=== PATIENT | male | born 1975 ===

== ENCOUNTER → 2020-09-13 09:40 | Outpatient (BNVA) | payer OTHER, SELFPAY | PROVIDERS: PCP Family Medicine; Referring Provider Family Medicine; Visit Provider Internal Medicine | DX: E11.65 Type 2 diabetes mellitus with hyperglycemia (principal); I10 Essential (primary) hypertension; E78.5 Hyperlipidemia, unspecified; E55.9 Vitamin D deficiency, unspecified; Z79.899 Other long term (current) drug therapy; Z79.82 Long term (current) use of aspirin; Z79.4 Long term (current) use of insulin; Z71.89 Other specified counseling | CPT/HCPCS: Q3014 ==

== ENCOUNTER 2020-09-19 20:25 | Emergency (ER) | payer OTHER, SELFPAY ==
--- NOTE | 2020-09-19 | US_ITS ---
EXAMINATION: US VENOUS WITH DOPPLER LOWER EXTREMITY, LEFT CLINICAL INFORMATION: Left lower extremity deep vein thrombosis. COMPARISON: None TECHNIQUE: Ultrasound of the deep veins is performed from the hip to the calf with compression sonography and color and pulse Doppler assessment. Spectral analysis with color-flow imaging is performed. FINDINGS: There is thrombus present in the posterior tibial and peroneal veins extending up into the popliteal vein and superficial femoral vein but not into the common femoral vein which is free of thrombus with normal respiratory variation of flow. The thrombus ends just after the inflow of the uninvolved great saphenous vein. The contralateral right common femoral vein appears normal. US/US venous duplex LE LT IMPRESSION: Acute DVT with extensive thrombus extending from tibial veins through the popliteal vein up the femoral vein to just below the saphenofemoral junction. This critical result was discussed with Dr. Navarro at 8:15 PM on the day of the exam and it was ascertained that the content and urgency of the report was understood at the time of direct communication. The patient was instructed to go directly from the ultrasound department at [facility] to the emergency room.
[2020-09-19 20:38] VITALS: BP 145/73; PULSE 79; RESP 18; TEMP 36.6; O2SAT 100; BMI 35.9
--- NOTE | 2020-09-19 20:47 | ED.GENADULT ---
HPI - General Adult General Chief complaint: General Medical Stated complaint: pt comfirmed dvt Time Seen by Provider: 09/19/20 20:43 Source: patient Mode of arrival: wheelchair Limitations: no limitations History of Present Illness HPI narrative: sent by US for acute DVT LLE - issues in leg x 3 weeks - sent by US tech due to positive study, denies CP/SOB, no known precipitating factors, no hx of GIB or bleeding, no fam hx, no prior VTE events complaint: LLE DVT Onset (ago): week(s) (2) Location: lower extremity Radiation: non-radiation Severity: mild Quality: aching Pain Consistency: constant Relieving factors: none Exacerbating factors: none Associated symptoms: denies other symptoms Treatments prior to arrival: none Related Data Home Medications Medication Instructions Recorded Confirmed acetaminophen 650 mg 1,300 mg PO Q8H PRN 09/13/20 09/19/20 tablet,extended release aspirin 81 mg tablet,delayed 81 mg PO DAILY 09/13/20 09/19/20 release atorvastatin 40 mg tablet 40 mg PO DAILY 09/13/20 09/19/20 cholecalciferol (vitamin D3) 50 50 mcg PO DAILY 09/13/20 09/19/20 mcg (2,000 unit) capsule dorzolamide 22.3 mg-timolol 6.8 1 drp OPHTHALMIC (EYE) BID 09/13/20 09/19/20 mg/mL eye drops insulin aspart U-100 100 unit/mL 8 unit SUBCUT TIDAC 09/13/20 09/19/20 (3 mL) subcutaneous pen insulin glargine 100 unit/mL (3 40 unit SUBCUT BEDTIME 09/13/20 09/19/20 mL) subcutaneous pen latanoprost 0.005 % eye drops 1 drp OPHTHALMIC (EYE) BEDTIME 09/13/20 09/19/20 loratadine 10 mg tablet 10 mg PO DAILY 09/13/20 09/19/20 nabumetone 750 mg tablet 750 mg PO BID 09/13/20 09/19/20 omeprazole 40 mg capsule,delayed 40 mg PO QAM 09/13/20 09/19/20 release primidone 50 tab PO BID 09/19/20 09/19/20 Previous Rx's Medication Instructions Recorded apixaban [Eliquis] 10 mg PO BID #90 tab 09/19/20 Allergies Allergy/AdvReac Type Severity Reaction Status Date / Time oxycodone Allergy Unknown Verified 06/13/20 00:00 Review of Systems Review of Systems: Constitutional : No Fever, No Chills ENT/Mouth : No Ear Pain, No Hoarseness, No sore throat Eyes: No Eye Pain, No Swelling, No Redness, No Foreign Body Cardiovascular : No Chest Pain, No SOB Respiratory : No Cough, No Dyspnea Gastrointestinal : No Nausea, No Vomiting, No Diarrhea, No abdominal Pain Genitourinary : No Dysuria, No Hematuria Musculoskeletal : positive joint pain, No Myalgias, No Joint Swelling Skin : No Skin lacerations, No rash Neuro : No Weakness, No Numbness, No Loss of Consciousness, No Dizziness, No Headache Psych : No Anxiety/Panic, No Depression Heme/Lymph: no easy bruising, no Lymphadenopathy Endocrine : No Polyuria, No Polydipsia All other systems reviewed and are negative PMFSH Past Medical History Attestation statement: The following information was validated with the patient. Medical History HLD (hyperlipidemia) HTN (hypertension) T2DM (type 2 diabetes mellitus) Vitamin D deficiency Surgical History No pertinent past surgical history Family History Family History Father No problems noted. Mother No problems noted. Social History Social History Alcohol intake: never Smoking Status: Former smoker Smoked in Last 30 Days: No Use of substances other than those prescribed or required for medical reasons: No Physical Exam Vital Signs: Vital Signs: Last Vital Signs Temp 98.9 F 09/19/20 21:11 Pulse 76 09/19/20 21:11 Resp 18 09/19/20 21:11 BP 125/98 H 09/19/20 21:11 Pulse Ox 98 09/19/20 21:11 Body Mass Index 35.9 Appearance: Alert. Oriented X3. No acute distress. Eyes: Pupils equal, round and reactive to light. ENT: Pharynx normal. Neck: Normal inspection. Neck supple. CVS: Normal heart rate and rhythm. Pulses normal. Respiratory: No respiratory distress. Breath sounds normal. Abdomen: Soft and nontender. Skin: Skin warm and dry. Normal skin color. Normal skin turgor. Extremities: pos non pitting left lower extremity edema. mild calf ttp normal skin tone, 2+ pulse DP/PT, sensation intact Neuro: Oriented X 3. No motor deficit. No sensory deficit. Medical Decision Making MDM Narrative Medical decision making narrative: 45 yo male with LLE pain and swelling x 2 weeks no precipitating events dx with US for DVT - wants to start eliquis, NV intact, will need labs, has no CP/SOB, hypoxia or tachycardia clinically no signs of PE Lab Data Result diagrams: 09/19/20 21:33 09/19/20 21:33 Labs: Lab Results 09/19/20 09/19/20 09/19/20 Range/Units 21:33 21:33 21:33 WBC 8.8 (4.8-10.8) X10*3/uL RBC 4.58 L (4.60-5.80) X10*6/uL Hgb 12.9 L (14.0-18.0) g/dl Hct 40.3 L (42-52) % MCV 88.0 (80-98) fL MCH 28.2 (27.0-33.0) pg MCHC 32.0 (31.0-36.0) g/dl RDW 12.9 (11.0-16.0) % Plt Count 202 (160-400) X10*3/uL MPV 9.6 (9.4-12.4) fL Absolute Nucleated RBC 0.000 (0.0-0.012) X10*3/uL Nucleated RBC % (auto) 0.0 (0.0-0.2) /100WBC PT 11.5 (10.8-13.0) SEC INR 1.0 (0.9-1.1) APTT 27.5 (24.1-38.0) SEC Sodium 139 (135-145) mmol/L Potassium 4.8 (3.3-5.1) mmol/l Chloride 104 (96-108) mmol/L Carbon Dioxide 29 (22-29) mmol/L Anion Gap 11 L (12-20) BUN 17 H (9-16) mg/dL Creatinine 1.16 (0.5-1.4) mg/dL Estim Creat Clear Calc 113.8 Estimated GFR > 60 Random Glucose 176 H (60-115) mg/dL Calcium 9.1 (8.4-10.2) mg/dL Discharge Plan Discharge Clinical Impression: DVT (deep venous thrombosis) Qualifiers: DVT location: lower extremity Affected thrombotic vein of extremity: unspecified vein of extremity Chronicity: acute Laterality: left Qualified Code(s): I82.402 - Acute embolism and thrombosis of unspecified deep veins of left lower extremity Patient Disposition: Home, Self-Care Instructions: Deep Vein Thrombosis (ED), Safe Use of Anticoagulants (ED), Blood Thinners (ED) Additional Instructions: return to ED for any worsening symptoms or concerns Prescriptions: New Eliquis 5 mg tablet 10 mg PO BID Qty: 90 RF: 0 No Action primidone 50 mg tablet 50 tab PO BID RF: 0 acetaminophen 650 mg tablet extended release 1,300 mg PO Q8H PRN (Reason: Pain) RF: 0 dorzolamide-timolol [Cosopt] 22.3-6.8 mg/mL drops 1 drp ophthalmic (eye) BID RF: 0 latanoprost [Xalatan] 0.005 % drops 1 drp ophthalmic (eye) BEDTIME RF: 0 loratadine [Claritin] 10 mg tablet 10 mg PO DAILY RF: 0 nabumetone 750 mg tablet 750 mg PO BID RF: 0 Lantus Solostar U-100 Insulin 100 unit/mL (3 mL) insulin pen 40 unit subcut BEDTIME RF: 0 insulin aspart U-100 100 unit/mL (3 mL) insulin pen 8 unit subcut TIDAC RF: 0 aspirin 81 mg tablet,delayed release (DR/EC) 81 mg PO DAILY RF: 0 omeprazole 40 mg capsule,delayed release(DR/EC) 40 mg PO QAM RF: 0 atorvastatin 40 mg tablet 40 mg PO DAILY RF: 0 cholecalciferol (vitamin D3) 50 mcg (2,000 unit) capsule 50 mcg PO DAILY RF: 0 Referrals: Physician,Unknown [Primary Care Provider] - 5 days
[2020-09-19 21:11] VITALS: BP 125/98; PULSE 76; RESP 18; TEMP 37.2; O2SAT 98
[2020-09-19 21:38] LABS: Hematocrit 40.3 % (42-52); Hemoglobin 12.9 g/dl (14.0-18.0); Mean Corpuscular Hemoglobin 28.2 pg (27.0-33.0); Mean Platelet Volume 9.6 fL (9.4-12.4); Platelet Count 202 X10*3/uL (160-400); Red Blood Count 4.58 X10*6/uL (4.60-5.80); Red Cell Distribution Width 12.9 % (11.0-16.0); White Blood Count 8.8 X10*3/uL (4.8-10.8)
[2020-09-19 21:44] LABS: Prothrombin Time 11.5 SEC (10.8-13.0)
[2020-09-19 21:47] LABS: Partial Thromboplastin Time 27.5 SEC (24.1-38.0)
[2020-09-19 21:56] LABS: Anion Gap 11 (12-20); Blood Urea Nitrogen 17 mg/dL (9-16); Calcium 9.1 mg/dL (8.4-10.2); Carbon Dioxide 29 mmol/L (22-29); Chloride 104 mmol/L (96-108); Creatinine Clr Calc Pharmacy 113.8; Estimated Glomerular Filt Rate > 60; Glucose Random 176 mg/dL (60-115); Potassium 4.8 mmol/l (3.3-5.1); Sodium 139 mmol/L (135-145)
[2020-09-19 22:00] VITALS: BP 142/79; PULSE 74; RESP 15; TEMP 36.6; O2SAT 98
[2020-09-19] MEDS: Apixaban 5 MG TABLET 10 MG PO (22:30)
== END 2020-09-19 22:48 | disposition home or self-care (01) ==
LOC: HO.ED 20:25
PROVIDERS: Emergency Provider Emergency Medicine
DX: I82.402 Acute embolism and thrombosis of unspecified deep veins of left lower extremity (principal); I10 Essential (primary) hypertension; E11.9 Type 2 diabetes mellitus without complications; E55.9 Vitamin D deficiency, unspecified; Z79.899 Other long term (current) drug therapy; Z87.891 Personal history of nicotine dependence; Z79.4 Long term (current) use of insulin
CPT/HCPCS: 36415; 80048; 85027; 85610; 85730; 93971; 99284

== ENCOUNTER 2021-01-02 14:28 | Outpatient (REF) | payer OTHER, SELFPAY ==
[2021-01-02 16:51] LABS: Alanine Aminotransferase 18 U/L (0-40); Albumin Level 4.2 g/dL (3.5-5.0); Alkaline Phosphatase 109 U/L (39-117); Anion Gap 11 (12-20); Aspartate Amino Transferase 12 U/L (5-37); Bilirubin Total 0.5 mg/dL (0.0-1.0); Blood Urea Nitrogen 21 mg/dL (9-16); Calcium 8.9 mg/dL (8.4-10.2); Carbon Dioxide 27 mmol/L (22-29); Chloride 102 mmol/L (96-108); Cholesterol 125 mg/dL; Estimated Glomerular Filt Rate 58; Glucose Random 206 mg/dL (60-115); HDL Cholesterol 36 mg/dL; LDL Cholesterol Calculated 44 mg/dl; Potassium 4.3 mmol/L (3.3-5.1); Sodium 136 mmol/L (135-145); Total Protein 7.3 g/dL (6.5-8.0); Triglycerides 229 mg/dL
[2021-01-02 17:13] LABS: Vitamin D 25-OH Total 39.5 ng/mL (>30)
[2021-01-02 17:16] LABS: Creatinine Urine 115.21 mg/dL
[2021-01-03 04:27] LABS: LDL Cholesterol Direct 73 mg/dL (<100)
== END 2021-01-02 14:29 | disposition home or self-care (01) ==
LOC: HO.LAB 14:28
PROVIDERS: PCP Internal Medicine; Visit Provider Internal Medicine
DX: E11.65 Type 2 diabetes mellitus with hyperglycemia (principal); E55.9 Vitamin D deficiency, unspecified; Z79.4 Long term (current) use of insulin
CPT/HCPCS: 36415; 80053; 80061; 82043; 82306; 82947; 83721; 99212

== ENCOUNTER → 2021-05-15 09:13 | Outpatient (REF) | payer OTHER, SELFPAY ==
--- NOTE | ~2021-05-15 | NM_ITS ---
Myocardial perfusion study Indication: Precordial chest pain to evaluate for myocardial ischemia Technique: The patient was brought in for a Lexiscan perfusion study on 05/15/2021. Patient performed low-level exercise and was injected 0.4 mg of Lexiscan intravenously. Within a minute of injection, 40 mCi of sestamibi was given intravenously. Images were obtained using the SPECT gamma camera interlaced with the gating device. Images were obtained in supine position. Resting perfusion study was performed on 05/16/2021. Patient was administered 40 mCi of sestamibi intravenously at rest. Images were then obtained in supine position. Images obtained with and without CT attenuation. Total DLP 187 mGy-cm. Images were processed with the software and compared side to side in short axis, horizontal long axis and vertical long axis views. Findings: The stress perfusion study showed nonattenuated images show normal uptake of radiotracer in all segments of LV myocardium. Attenuation corrected images show mildly reduced uptake in the distal septum and apex of the. The gated study shows normal LV systolic function with calculated LVEF of 67%. LV cavity is normal size. The gated study shows normal systolic wall thickening and contraction of segments. Resting study shows no change in perfusion pattern compared to stress perfusion study. Gating at rest reveals normal systolic wall motion with ejection fraction at 68%. The findings are consistent with normal myocardial perfusion. NM/NM lexx perf SPECT rest & str Impression: 1. Myocardial perfusion imaging study shows normal myocardial perfusion 2. Gated LVEF is 67% 3. Transient ischemic dilatation not present EKG is nondiagnostic for ischemia
--- NOTE | 2021-05-15 09:00 | CA_ITS ---
Acquisition Time: 2021-05-15 09:54:32 Total Exercise Time: 00:06:48 Test Indications: Chest Pain Medications: ELIQUIS ASA ATORVASTATIN LORATADINE ENALAPRIL INSULIN OMEPRAZOLE OZEMPIC Protocol: MATI Max HR: 160 BPM 91% of Pred: 174 BPM Max BP: 178/058 mmHG Max Work Load: 8.2 METS Exercise stress test with exercise 6 min 48 sec of Mati protocol, with moderate shortness of breath, no chest discomfort, without arrythmia, with normotensive response to exercise, with ongoing T wave inversion lead III during exercise and recovery, without EKG changes meeting criteria for ischemia. In recovery his shortness of breath quickly resolved. Nuclear images pending. Test reviewed with Dr Thomas. Referred By: Derick Peña Overread By: ASTRID ROUSSEAU
== END ==
LOC: HO.CARD 09:13
PROVIDERS: Visit Provider Internal Medicine
DX: R07.2 Precordial pain (principal)
CPT/HCPCS: 78452; 93017; A9500

== ENCOUNTER 2021-09-27 08:46 | Outpatient (REF) | payer OTHER, SELFPAY ==
[2021-09-27 10:11] LABS: Estimated Average Glucose 197 mg/dL; Hemoglobin A1c % 8.5 %
[2021-09-27 10:43] LABS: Alanine Aminotransferase 34 U/L (0-40); Albumin Level 4.1 g/dL (3.5-5.0); Alkaline Phosphatase 131 U/L (39-117); Anion Gap 14 (12-20); Aspartate Amino Transferase 17 U/L (5-37); Bilirubin Total 0.4 mg/dL (0.0-1.0); Blood Urea Nitrogen 22 mg/dL (9-16); Calcium 9.5 mg/dL (8.4-10.2); Carbon Dioxide 24 mmol/L (22-29); Chloride 104 mmol/L (96-108); Estimated Glomerular Filt Rate 58; Glucose Random 210 mg/dL (60-115); Sodium 138 mmol/L (135-145); Total Protein 7.5 g/dL (6.5-8.0)
[2021-09-27 11:26] LABS: Creatinine Urine 102.96 mg/dL
== END 2021-09-27 08:47 | disposition home or self-care (01) ==
LOC: HO.LAB 08:46
PROVIDERS: PCP Internal Medicine; Visit Provider Internal Medicine
DX: E11.65 Type 2 diabetes mellitus with hyperglycemia (principal); Z79.4 Long term (current) use of insulin
CPT/HCPCS: 36415; 80053; 83036

== ENCOUNTER → 2021-09-30 12:19 | Outpatient (BNVA) | payer OTHER, SELFPAY | PROVIDERS: PCP Internal Medicine; Visit Provider Internal Medicine | DX: E11.65 Type 2 diabetes mellitus with hyperglycemia (principal); E55.9 Vitamin D deficiency, unspecified; E78.5 Hyperlipidemia, unspecified; I10 Essential (primary) hypertension; Z79.4 Long term (current) use of insulin | CPT/HCPCS: 82947; 99212 ==

== ENCOUNTER → 2021-10-29 14:02 | Outpatient (BNVA) | payer OTHER, SELFPAY | PROVIDERS: PCP Internal Medicine; Visit Provider Registered Nurse Diabetes Educator | DX: E11.65 Type 2 diabetes mellitus with hyperglycemia (principal); Z79.4 Long term (current) use of insulin | CPT/HCPCS: 99211 ==

== ENCOUNTER 2021-12-26 09:01 | Outpatient (REF) | payer OTHER, SELFPAY ==
--- NOTE | 2021-12-26 09:04 | EMG_ITS ---
Right median and ulnar motor and sensory studies were performed. Right radial sensory study was performed and paraspinal muscles were tested with a needle. IMPRESSION: 1. [id number] right median neuropathy across carpal tunnel. 2. Right Duane-Dany anastomosis, normal variant. MD JOMAR Hardy/CHRISTIN / [id number]
== END 2021-12-26 09:02 | disposition home or self-care (01) ==
LOC: HO.NEURO 09:01
PROVIDERS: Visit Provider Internal Medicine
DX: G56.01 Carpal tunnel syndrome, right upper limb (principal)
CPT/HCPCS: 95886; 95909

== ENCOUNTER 2022-01-04 19:18 | Observation (INO) | payer OTHER, SELFPAY ==
--- NOTE | ~2022-01-04 | XR_ITS ---
EXAMINATION: XR FOOT, LEFT CLINICAL INFORMATION: Swelling COMPARISON: 10/09/2017 TECHNIQUE: AP, lateral, and oblique views of the left foot. FINDINGS: The bones and soft tissues are normal. No fracture. Alignment is anatomic. Joint spaces are maintained. XR/XR foot LT min 3V IMPRESSION: No acute bony abnormality. Similar appearance to the 2017 study.
--- NOTE | ~2022-01-04 | US_ITS ---
EXAMINATION: US VENOUS ULTRASOUND WITH DOPPLER LOWER EXTREMITY, LEFT CLINICAL INFORMATION: Swelling. COMPARISON: 09/19/2020. TECHNIQUE: Ultrasound of the deep veins is performed from the hip to the calf with compression sonography and color and pulse Doppler assessment. Spectral analysis with color-flow imaging is performed. FINDINGS: There is normal venous compression and respiratory variation and augmented flow. The visualized common femoral vein, superficial femoral vein, profunda femoral vein, popliteal vein, and the trifurcation region shows no evidence of deep venous thrombosis. There is no significant popliteal fossa cyst. If the patient's symptoms persist, followup ultrasound in 5 days 7 days might be of value to exclude proximal propagation from a non-visualized calf vein. US/US venous duplex LE LT IMPRESSION: No DVT demonstrated in the left lower extremity with the caveat of limited evaluation of the peroneal veins due to overlying subcutaneous edema.
[2022-01-04 19:31] VITALS: BP 108/57; PULSE 80; RESP 16; TEMP 36.6; O2SAT 96; BMI 26.9
[2022-01-04 21:59] LABS: MANUAL DIFF FLAG NO
[2022-01-04 22:01] LABS: Basophils Percent Auto 0.2 % (0-2); Eosinophils Absolute Auto 0.1 X10*3/uL (0.0-0.4); Eosinophils Percent Auto 1.2 % (0-4); Hematocrit 38.7 % (42.0-52.0); Hemoglobin 12.4 g/dl (14.0-18.0); Imm Gran Abs Auto 0.03 X10*3/uL (0.00-0.03); Imm Gran Pct Auto 0.4 % (0.0-0.4); Lymphocytes Absolute Auto 2.3 X10*3/uL (1.2-4.9); Lymphocytes Percent Auto 27.1 % (20-40); Mean Corpuscular Hemoglobin 28.6 pg (27.0-33.0); Mean Corpuscular Volume 89.2 fL (80.0-98.0); Mean Platelet Volume 9.7 fL (9.4-12.4); Monocytes Absolute Auto 0.7 X10*3/uL (0.1-1.2); Monocytes Percent Auto 8.4 % (2-11); Neutrophils Absolute Auto 5.3 x10*3/uL (2.0-8.3); Neutrophils Percent Auto 62.7 % (45-73); Platelet Count 242 X10*3/uL (160-400); Red Blood Count 4.34 X10*6/uL (4.60-5.80); Red Cell Distribution Width 13.2 % (11.0-16.0); White Blood Count 8.4 X10*3/uL (4.8-10.8)
[2022-01-04 22:08] LABS: Prothrombin Time 11.4 SEC (9.9-13.0)
[2022-01-04 22:11] LABS: Partial Thromboplastin Time 32.8 SEC (24.1-38.0)
[2022-01-04 22:16] LABS: Alanine Aminotransferase 18 U/L (0-40); Albumin Level 4.2 g/dL (3.5-5.0); Alkaline Phosphatase 111 U/L (39-117); Anion Gap 10 (12-20); Aspartate Amino Transferase 15 U/L (5-37); Bilirubin Total 0.4 mg/dL (0.0-1.0); Blood Urea Nitrogen 26 mg/dL (9-16); Calcium 9.9 mg/dL (8.4-10.2); Carbon Dioxide 27 mmol/L (22-29); Chloride 106 mmol/L (96-108); Creatinine Clr Calc Pharmacy 65.8; Estimated Glomerular Filt Rate 46; Glucose Random 138 mg/dL (60-115); Potassium 4.1 mmol/L (3.3-5.1); Sodium 139 mmol/L (135-145); Total Protein 7.5 g/dL (6.5-8.0)
--- NOTE | 2022-01-04 22:49 | ED.GENADULT ---
HPI - General Adult General Chief complaint: Extremity Injury, Lower Stated complaint: diabetic, swollen left foot Time Seen by Provider: 01/04/22 21:14 Source: patient Mode of arrival: ambulatory Limitations: no limitations History of Present Illness HPI narrative: 46-year-old male with history of diabetes presents to ED for left 5th toe pain with slight redness on lateral aspect of toe and also states slight swelling of lateral aspect of left ankle. patient denies for any open wounds/ulcers/redness/ecchymosis/swelling of left foot/leg/knee/thight/hip. Patient denies any calf pain, fever, or chills. Related Data Home Medications Medication Instructions Recorded Confirmed acetaminophen 650 mg 1,300 mg PO Q8H PRN 09/13/20 12/26/21 tablet,extended release cholecalciferol (vitamin D3) 50 50 mcg PO DAILY 09/13/20 12/26/21 mcg (2,000 unit) capsule dorzolamide 22.3 mg-timolol 6.8 1 drp OPHTHALMIC (EYE) BID 09/13/20 12/26/21 mg/mL eye drops (Cosopt) latanoprost 0.005 % eye drops 1 drp OPHTHALMIC (EYE) BEDTIME 09/13/20 12/26/21 (Xalatan) loratadine 10 mg tablet (Claritin) 10 mg PO DAILY 09/13/20 12/26/21 nabumetone 750 mg tablet 750 mg PO BID 09/13/20 12/26/21 omeprazole 40 mg capsule,delayed 40 mg PO QAM 09/13/20 12/26/21 release alcohol swabs 1 pad TOPICAL QID 01/02/21 12/26/21 blood sugar diagnostic #10 ea 01/02/21 12/26/21 lancets 33 gauge #100 ea 01/02/21 12/26/21 tizanidine 2 mg tablet 2 mg PO BID PRN 09/30/21 12/26/21 tramadol 50 mg tablet 50 mg PO Q12H PRN 09/30/21 12/26/21 Previous Rx's Medication Instructions Recorded pen needle, diabetic 32 gauge x #100 ea 05/15/21 1 (BD Ultra-Fine Micro Pen Needle) atorvastatin 40 mg tablet 40 mg PO DAILY 30 Days #30 tab 05/20/21 flash glucose scanning reader #1 ea 10/24/21 (FreeStyle Naif 14 Day [place]) flash glucose sensor (FreeStyle #2 ea 10/24/21 Naif 14 Day Sensor) insulin aspart U-100 100 unit/mL 20 unit (0.2 mL) SUBCUT TIDAC 30 12/26/21 (3 mL) subcutaneous pen Days #18 ml insulin glargine 100 unit/mL (3 60 unit (0.6 mL) SUBCUT BEDTIME 30 12/26/21 mL) subcutaneous pen Days #18 ml semaglutide 1 mg/dose (4 mg/3 mL) 1 mg (0.75 mL) SUBCUT QWEEK 30 12/26/21 subcutaneous pen injector (Ozempic) Days #3.75 ml Allergies Allergy/AdvReac Type Severity Reaction Status Date / Time oxycodone Allergy Unknown Unknown Verified 09/30/21 13:12 Review of Systems Review of Systems: left toe irratation. slight lateral left ankle swelling. Yes all other systems are reviewed and are negative PMF Past Medical History Medical History HLD (hyperlipidemia) HTN (hypertension) T2DM (type 2 diabetes mellitus) Vitamin D deficiency Surgical History Male circumcision Family History Family History Father No problems noted. Mother No problems noted. Social History Social History Alcohol intake: never Patient Tobacco Use Status: Never used Tobacco Advance Directives: No Advance Directives Information Provided: Yes Physical Exam ED Vital Signs: Vital Signs - 24 hr 01/04/22 19:31 01/05/22 01:38 Temperature 98 F 98.7 F Pulse Rate 80 71 Respiratory Rate 16 16 Blood Pressure 108/57 L 149/67 H Pulse Oximetry 96 98 BMI result Body Mass Index 26.9 Const General: cooperative, healthy appearing, comfortable, no acute distress, well developed, alert, awake and Physically active Orientation/consciousness: patient oriented x3 HENMT Head: Yes normal to inspection, Yes No palpable skull fracture present, Yes normocephalic, Yes atraumatic and No abrasion Eyes General: appearance normal, both eyes and all related structures Neck Neck: Yes normal visual inspection, Yes full ROM, Yes no lymphadenopathy, Yes no meningeal signs, Yes trachea midline, Yes supple, No anterior neck swelling and No tender Chest Chest palpation & inspection: normal inspection of the chest and normal palpation of entire chest wall Resp Effort & Inspection: normal respiratory effort and able to speak in complete sentences Auscultation: clear to auscultation bilaterally Cardio Jugular venous distension: no JVD Heart sounds: S1 normal heart sound present and S2 normal heart sound present GI Inspection: Yes normal to inspection and No abdominal wall ecchymosis Palpation (GI): Soft to palpation, not firm, nontender, no guarding and not rigid General: No CVA tenderness and Yes no CVA tenderness Back/Spine/Pelvis Back: no CVA tenderness, No CVA tenderness and No back tenderness Skin General skin exam: no rashes or lesions noted and elasticity normal Neuro General: patient oriented x3, gait normal, no meningeal signs and CN's II-XI intact bilaterally Extrem General: Yes normal to inspection and Yes full ROM Ankle/foot/toe images: 1. slight redness with tenderness. Negative for any ulcers or wounds/pus discharge, foul odor. Dorsal foot normal. Motor/nose/vascular exam intact. Negative for pain/swelling/redness on MTP joint of great toe. Vascular/motor/neuro exam and 2. Slight swelling. Negative for any tenderness, ecchymosis, deformity, redness, or warmth. Negative for leg swelling or calf pain. Negative for any redness. Negative for any bluish black discoloration. Psych Appearance: grossly normal, well kempt and not disheveled Course Course Course Narrative: X-ray ordered. Reevaluation(s) Reevaluation #1: X-ray negative for osteomyelitis or fracture. Patient states left ankle swollen more than the right lower extremity. Ultrasound ordered came back negative for DVT of left lower extremity. Labs ordered in case venous duplex was positive. Lab shows MARI fluids ordered. Time: 23:21 Reevaluation #2: Patient after fluids given still in in MARI. UA negative for UTI. Patient informed he has 1 kidney. Case presented to hospitalists for admission. Time: 03:23 Medical Decision Making [facility] Narrative Medical decision making narrative: Acute kidney injury Lab Data Result diagrams: 01/04/22 21:54 01/05/22 00:25 Labs: Lab Results 01/04/22 01/04/22 01/04/22 Range/Units 21:54 21:54 21:54 WBC 8.4 (4.8-10.8) X10*3/uL RBC 4.34 L (4.60-5.80) X10*6/uL Hgb 12.4 L (14.0-18.0) g/dl Hct 38.7 L (42.0-52.0) % MCV 89.2 (80.0-98.0) fL MCH 28.6 (27.0-33.0) pg MCHC 32.0 (31.0-36.0) g/dl RDW 13.2 (11.0-16.0) % Plt Count 242 (160-400) X10*3/uL MPV 9.7 (9.4-12.4) fL Immature Gran % (Auto) 0.4 (0.0-0.4) % Neut % (Auto) 62.7 (45-73) % Lymph % (Auto) 27.1 (20-40) % [place] % (Auto) 8.4 (2-11) % Eos % (Auto) 1.2 (0-4) % Baso % (Auto) 0.2 (0-2) % Lymph # (Auto) 2.3 (1.2-4.9) X10*3/uL [place] # (Auto) 0.7 (0.1-1.2) X10*3/uL Eos # (Auto) 0.1 (0.0-0.4) X10*3/uL Baso # (Auto) 0.0 (0.0-0.2) X10*3/uL Abs Immat Gran (auto) 0.03 (0.00-0.03) X10*3/uL Absolute Neuts (auto) 5.3 (2.0-8.3) x10*3/uL Absolute Nucleated RBC 0.000 (0.0-0.012) X10*3/uL Nucleated RBC % (auto) 0.0 (0.0-0.2) /100WBC PT 11.4 (9.9-13.0) SEC INR 1.0 (0.9-1.1) APTT 32.8 (24.1-38.0) SEC Sodium 139 (135-145) mmol/L Potassium 4.1 (3.3-5.1) mmol/L Chloride 106 (96-108) mmol/L Carbon Dioxide 27 (22-29) mmol/L Anion Gap 10 L (12-20) BUN 26 H (9-16) mg/dL Creatinine 1.63 H (0.5-1.4) mg/dL Estim Creat Clear Calc 65.8 Estimated GFR 46 Random Glucose 138 H (60-115) mg/dL Calcium 9.9 (8.4-10.2) mg/dL Total Bilirubin 0.4 (0.0-1.0) mg/dL AST 15 (5-37) U/L ALT 18 (0-40) U/L Alkaline Phosphatase 111 (39-117) U/L Total Protein 7.5 (6.5-8.0) g/dL Albumin 4.2 (3.5-5.0) g/dL Urine Color Urine Appearance Urine pH (5.0-8.0) Ur Specific [place] (1.005-1.025) Urine Protein (NEG-TRACE) MG/DL Urine Glucose (UA) (NEG) MG/DL Urine Ketones (NEG) MG/DL Urine Blood (NEG) Urine Nitrite (NEG) Ur Leukocyte Esterase (NEG) 01/05/22 01/05/22 Range/Units 00:25 01:38 WBC (4.8-10.8) X10*3/uL RBC (4.60-5.80) X10*6/uL Hgb (14.0-18.0) g/dl Hct (42.0-52.0) % MCV (80.0-98.0) fL MCH (27.0-33.0) pg MCHC (31.0-36.0) g/dl RDW (11.0-16.0) % Plt Count (160-400) X10*3/uL MPV (9.4-12.4) fL Immature Gran % (Auto) (0.0-0.4) % Neut % (Auto) (45-73) % Lymph % (Auto) (20-40) % [place] % (Auto) (2-11) % Eos % (Auto) (0-4) % Baso % (Auto) (0-2) % Lymph # (Auto) (1.2-4.9) X10*3/uL [place] # (Auto) (0.1-1.2) X10*3/uL Eos # (Auto) (0.0-0.4) X10*3/uL Baso # (Auto) (0.0-0.2) X10*3/uL Abs Immat Gran (auto) (0.00-0.03) X10*3/uL Absolute Neuts (auto) (2.0-8.3) x10*3/uL Absolute Nucleated RBC (0.0-0.012) X10*3/uL Nucleated RBC % (auto) (0.0-0.2) /100WBC PT (9.9-13.0) SEC INR (0.9-1.1) APTT (24.1-38.0) SEC Sodium 140 (135-145) mmol/L Potassium 3.9 (3.3-5.1) mmol/L Chloride 109 H (96-108) mmol/L Carbon Dioxide 25 (22-29) mmol/L Anion Gap 10 L (12-20) BUN 24 H (9-16) mg/dL Creatinine 1.45 H (0.5-1.4) mg/dL Estim Creat Clear Calc 74.0 Estimated GFR 52 Random Glucose 132 H (60-115) mg/dL Calcium 8.9 D (8.4-10.2) mg/dL Total Bilirubin 0.4 (0.0-1.0) mg/dL AST 14 (5-37) U/L ALT 16 (0-40) U/L Alkaline Phosphatase 100 (39-117) U/L Total Protein 6.3 L (6.5-8.0) g/dL Albumin 3.6 (3.5-5.0) g/dL Urine Color YELLOW Urine Appearance CLEAR Urine pH 6.0 (5.0-8.0) Ur Specific [place] 1.025 (1.005-1.025) Urine Protein NEG (NEG-TRACE) MG/DL Urine Glucose (UA) NEG (NEG) MG/DL Urine Ketones NEG (NEG) MG/DL Urine Blood NEG (NEG) Urine Nitrite NEG (NEG) Ur Leukocyte Esterase NEG (NEG) Discharge Plan Discharge Clinical Impression: MARI (acute kidney injury) Patient Disposition: Admitted As Inpatient
[2022-01-04] MEDS: 0.9 % Sodium Chloride 1,000 ML 999 ML IV (22:58)
[2022-01-05] MEDS: 0.9 % Sodium Chloride 1,000 ML 999 ML IV (00:17)
[2022-01-05 00:49] LABS: Alanine Aminotransferase 16 U/L (0-40); Albumin Level 3.6 g/dL (3.5-5.0); Alkaline Phosphatase 100 U/L (39-117); Anion Gap 10 (12-20); Aspartate Amino Transferase 14 U/L (5-37); Bilirubin Total 0.4 mg/dL (0.0-1.0); Blood Urea Nitrogen 24 mg/dL (9-16); Calcium 8.9 mg/dL (8.4-10.2); Carbon Dioxide 25 mmol/L (22-29); Chloride 109 mmol/L (96-108); Estimated Glomerular Filt Rate 52; Glucose Random 132 mg/dL (60-115); Potassium 3.9 mmol/L (3.3-5.1); Sodium 140 mmol/L (135-145); Total Protein 6.3 g/dL (6.5-8.0)
[2022-01-05 01:38] VITALS: BP 149/67; PULSE 71; RESP 16; TEMP 37.1; O2SAT 98
[2022-01-05 01:45] LABS: Appearance Urine CLEAR; Color Urine YELLOW; Glucose Urine UA NEG (NEG); Leukocyte Esterase Urine NEG (NEG); Nitrite Urine NEG (NEG); Specific Gravity - Urine 1.025 (1.005-1.025); Urine Blood NEG (NEG); Urine Ketones NEG (NEG); Urine Protein NEG (NEG-TRACE)
[2022-01-05 04:19] LABS: COVID-19 Test Negative (Negative)
[2022-01-05] MEDS: Lactated Ringers 1,000 ML 100 ML IVCONT ×2 (04:30→15:20)
--- NOTE | 2022-01-05 04:33 | PC.NURSE ---
Report given to Dinorah in [place]. IVF infusing per [facility]. meter/relay technician at bedside for transport to [place].
[2022-01-05 05:56] VITALS: BP 131/57; PULSE 58; RESP 20; TEMP 36.9; O2SAT 97
--- NOTE | 2022-01-05 06:48 | P.HPHOSP_ITS ---
History of Present Illness Date of Service: 01/05/22 Chief Complaint: right toe pain this is a 46-year-old male with past medical history of diabetes, who presents to the hospital with complaints of left toe pain in his concern for possible infection. Patient reports that his pain started 1 days ago, pain is 7/10, nonradiating, has no trauma or injury to the big toe, denies any redness or warmth on the toe. He reports no fever or chills, he reports good oral intake, no abdominal pain nausea or vomiting, no diarrhea constipation, no urinary symptoms. And no lower extremity edema Arrival to the ED patient hemodynamically stable with no significant vitals Labs are significant for BUN of 24, and creatinine of 1.63 with a baseline around 1.3 . patient received IV fluids with only slightly improvement in his creatinine function therefore will be admitted for further management Review of Systems Review of Systems: Yes all other systems are reviewed and are negative [facility] Medical History HLD (hyperlipidemia) HTN (hypertension) T2DM (type 2 diabetes mellitus) Vitamin D deficiency Family History Father No problems noted. Mother No problems noted. Surgical History Male circumcision Social History (Updated 01/05/22 @ 06:55 by Joseph Ramirez MD) Alcohol intake: never Patient Tobacco Use Status: Never used Tobacco Use of substances other than those prescribed or required for medical reasons: No Advance Directives: No Advance Directives Information Provided: Yes Meds Allergies Allergy/AdvReac Type Severity Reaction Status Date / Time oxycodone Allergy Unknown Unknown Verified 09/30/21 13:12 Active Medications: Current Medications Acetaminophen (Acetaminophen 325 Mg Tablet) 650 mg PO Q6H PRN PRN Reason: Pain, Mild (Pain Scale 1-3) Lactated Ringer's (Lr) 1,000 mls @ 100 mls/hr IVCONT .Q10H VICENTE Last Admin: 01/05/22 04:30 Dose: 100 mls/hr Documented by: Ondansetron HCl (Ondansetron Hcl 4 Mg/2 Ml Vial) 4 mg IVPUSH Q8H PRN PRN Reason: Nausea and Vomiting Sodium Chloride (0.9 % Sodium Chloride Flush 3 Ml Syringe) [facility] Home Medications Medication Instructions Recorded Confirmed Last Taken Type atorvastatin 40 mg tablet 40 mg PO DAILY 01/05/22 01/05/22 01/03/22 History hydroxyzine pamoate 50 mg capsule 50 mg PO TID 01/05/22 01/05/22 12/22/21 History insulin aspart U-100 100 unit/mL 15 unit SUBCUT TID 01/05/22 01/05/22 01/04/22 13:00 History (3 mL) subcutaneous pen (Novolog Flexpen U-100 Insulin aspart) insulin glargine 100 unit/mL (3 60 unit SUBCUT BEDTIME 01/05/22 01/05/22 2 History mL) subcutaneous pen (Lantus Solostar U-100 Insulin) loratadine 10 mg tablet 10 mg PO DAILY 01/05/22 01/05/22 01/03/22 History omeprazole 40 mg capsule,delayed 40 mg PO QAM 01/05/22 01/05/22 01/03/22 History release semaglutide 1 mg/dose (4 mg/3 mL) 1 mg SUBCUT 01/05/22 12/30/21 History subcutaneous pen injector (Ozempic) tizanidine 2 mg tablet 4 mg PO TID PRN 01/05/22 01/05/22 01/04/22 16:00 History Physical Exam Vital Signs and Narrative: Vital Signs: Last Vital Signs Temp 98.5 F 01/05/22 05:56 Pulse 58 01/05/22 05:56 Resp 20 01/05/22 05:56 BP 131/57 L 01/05/22 05:56 Pulse Ox 97 01/05/22 05:56 BMI result Body Mass Index 26.9 Const: General: cooperative and no acute distress Orientation/consciousness: patient oriented x3 Eyes: General: appearance normal, both eyes and all related structures Pupils: Equal, round and reactive pupils present Resp: Effort & Inspection: normal respiratory effort Auscultation: clear to auscultation bilaterally Cardio: Rate: regular rate Rhythm: regular rhythm GI: Palpation (GI): Soft to palpation Auscultation: normal bowel sounds Skin: General skin exam: no rashes or lesions noted Neuro: General: patient oriented x3 Cranial nerves: Yes Equal, round and reactive pupils present Cognition (Neuro): normal cognition Extrem: Other: there is slight tenderness to the medial aspect of the large left toe, no warmth, erythema, or edema appreciated there seems to be some issue with the bed nail but no evidence of cyanosis or skin changes General: Yes normal to inspection and Yes no pedal edema Results Labs CBC and Chem 7: 01/04/22 21:54 01/05/22 00:25 Labs: Laboratory Results - last 24 hr 01/04/22 01/04/22 01/04/22 21:54 21:54 21:54 MCV 89.2 MCH 28.6 MCHC 32.0 RDW 13.2 Plt Count 242 MPV 9.7 Immature Gran % (Auto) 0.4 Neut % (Auto) 62.7 Lymph % (Auto) 27.1 [place] % (Auto) 8.4 Eos % (Auto) 1.2 Baso % (Auto) 0.2 Lymph # (Auto) 2.3 [place] # (Auto) 0.7 Eos # (Auto) 0.1 Baso # (Auto) 0.0 Abs Immat Gran (auto) 0.03 Absolute Neuts (auto) 5.3 Absolute Nucleated RBC 0.000 Nucleated RBC % (auto) 0.0 PT 11.4 INR 1.0 APTT 32.8 Anion Gap 10 L Estim Creat Clear Calc 65.8 Estimated GFR 46 Random Glucose 138 H Calcium 9.9 Total Bilirubin 0.4 AST 15 ALT 18 Alkaline Phosphatase 111 Total Protein 7.5 Albumin 4.2 Urine Color Urine Appearance Urine pH Ur Specific [place] Urine Protein Urine Glucose (UA) Urine Ketones Urine Blood Urine Nitrite Ur Leukocyte Esterase COVID-19 ([facility]) COVID-19 Clin Com 01/05/22 01/05/22 01/05/22 00:25 01:38 03:57 MCV MCH MCHC RDW Plt Count MPV Immature Gran % (Auto) Neut % (Auto) Lymph % (Auto) [place] % (Auto) Eos % (Auto) Baso % (Auto) Lymph # (Auto) [place] # (Auto) Eos # (Auto) Baso # (Auto) Abs Immat Gran (auto) Absolute Neuts (auto) Absolute Nucleated RBC Nucleated RBC % (auto) PT INR APTT Anion Gap 10 L Estim Creat Clear Calc 74.0 Estimated GFR 52 Random Glucose 132 H Calcium 8.9 D Total Bilirubin 0.4 AST 14 ALT 16 Alkaline Phosphatase 100 Total Protein 6.3 L Albumin 3.6 Urine Color YELLOW Urine Appearance CLEAR Urine pH 6.0 Ur Specific [place] 1.025 Urine Protein NEG Urine Glucose (UA) NEG Urine Ketones NEG Urine Blood NEG Urine Nitrite NEG Ur Leukocyte Esterase NEG COVID-19 ([facility]) Negative COVID-19 Clin Com See Note Imaging Radiologist's Impressions: Impressions Foot X-Ray 01/04/22 20:11 IMPRESSION: No acute bony abnormality. Similar appearance to the 2017 study. Venous Duplex 01/04/22 21:36 IMPRESSION: No DVT demonstrated in the left lower extremity with the caveat of limited evaluation of the peroneal veins due to overlying subcutaneous edema. Assessment and Plan (1) MARI (acute kidney injury): Status: Acute (2) Toe pain, left: Status: Acute Plan 46-year-old male with history of diabetes who presents to the hospital with co mplaints of left toe pain found to have MARI # MARI on CKD - likely prerenal, as well as secondary to advancing diabetes - received IV fluids with only slightly improvement in his creatinine function therefore patient will be admitted for IV fluids for management of MARI # left toe pain - toe x-ray negative, will obtain ESR CRP although no evidence of infection appreciated - if continues to have pain consider CT/MRI op follow up # diabetes - will continue home insulin - will add low-dose sliding scale insulin - diabetic diet DVT prophylaxis: Lovenox given patient's history of diabetes as well as underlying kidney disease, he needs to be admitted for observation and treated with IV fluids for the acute kidney failure Quality Stroke Does the patient have a stroke diagnosis?: No VTE Prior VTE?: No VTE Risk Level:: Medical - low VTE Device Contraindication: Treatment Not Indicated VTE Drug Contraindication: Treatment Not Indicated
[2022-01-05 07:13] LABS: MANUAL DIFF FLAG NO
[2022-01-05 07:14] LABS: Basophils Percent Auto 0.2 % (0-2); Eosinophils Absolute Auto 0.1 X10*3/uL (0.0-0.4); Eosinophils Percent Auto 1.6 % (0-4); Hematocrit 36.5 % (42.0-52.0); Hemoglobin 11.8 g/dl (14.0-18.0); Imm Gran Abs Auto 0.02 X10*3/uL (0.00-0.03); Imm Gran Pct Auto 0.3 % (0.0-0.4); Lymphocytes Absolute Auto 2.1 X10*3/uL (1.2-4.9); Lymphocytes Percent Auto 33.7 % (20-40); Mean Corpuscular HGB Conc 32.3 g/dl (31.0-36.0); Mean Corpuscular Hemoglobin 28.5 pg (27.0-33.0); Mean Corpuscular Volume 88.2 fL (80.0-98.0); Mean Platelet Volume 9.6 fL (9.4-12.4); Monocytes Absolute Auto 0.5 X10*3/uL (0.1-1.2); Monocytes Percent Auto 8.6 % (2-11); Neutrophils Absolute Auto 3.4 x10*3/uL (2.0-8.3); Neutrophils Percent Auto 55.6 % (45-73); Platelet Count 214 X10*3/uL (160-400); Red Blood Count 4.14 X10*6/uL (4.60-5.80); Red Cell Distribution Width 13.3 % (11.0-16.0); White Blood Count 6.1 X10*3/uL (4.8-10.8)
--- NOTE | 2022-01-05 07:31 | PHA.MEDREC ---
Pharmacy Consult ? Medication Reconciliation Nursing has completed the medication reconciliation and pharmacy has reviewed. Nurse stated that she confirmed all medications with the patient and the at the bedside.
[2022-01-05 07:34] LABS: Anion Gap 11 (12-20); Blood Urea Nitrogen 21 mg/dL (9-16); Calcium 8.7 mg/dL (8.4-10.2); Carbon Dioxide 24 mmol/L (22-29); Chloride 108 mmol/L (96-108); Creatinine Clr Calc Pharmacy 81.9; Estimated Glomerular Filt Rate 59; Glucose Random 122 mg/dL (60-115); Sodium 139 mmol/L (135-145)
[2022-01-05 07:36] LABS: C Reactive Protein 0.14 mg/dL (< or = 0.50)
[2022-01-05 08:24] VITALS: BP 153/82; PULSE 70; RESP 15; TEMP 36.1; O2SAT 98
--- NOTE | 2022-01-05 08:24 | P.EN_ITS ---
Event Note Date of Service: 01/05/22
--- NOTE | 2022-01-05 08:24 | PM.EVENT ---
Event Note Date of Service: 01/05/22
[2022-01-05 08:25] LABS: Glucose, Whole Blood 154 mg/dL (60-115)
[2022-01-05 08:43] LABS: Uric Acid 6.7 mg/dL (3.4-7.0)
[2022-01-05] MEDS: hydrOXYzine HCL 50 MG TABLET PO ×2 (08:43→15:17)
[2022-01-05] MEDS: Loratadine 10 MG TABLET PO (08:43)
[2022-01-05] MEDS: Atorvastatin Calcium 40 MG TABLET PO (08:43)
[2022-01-05 09:12] LABS: Erythrocyte Sedimentation Rate 16 MM/HR (0-15)
--- NOTE | 2022-01-05 14:31 | MHC.CM.PN ---
ZARINA 01/05/22, EMR REVIEWED, PT ADMITTED W/MARI, CM MET W/PT VIA ORDER WORKER WHO REPORTS HE LIVES W/ AND 15YO DTR, IS INDEPENDENT W/CARE, USES DIABETIC SUPPLIES FOR DME AND USES A PATCH MONITOR ON LEFT UPPER ARM, PT REPORTS HE CHECKS HIS BS'S 4XDAY AND USES BOTH LONG AND SHORT ACTING INSULIN AT HOME, PT DENIES HOME SERVICES, VERIFIES PCP [facility]. PT COMPLETED A HCP W/CM, PT PROVIDED W/THAI EDUCATIONAL INFO, ORIGINAL AND 2 COPIES, COPY UPLOADED TO [employer] [place] AND PLACED IN CHART. PT NAMED HIS [facility] [phone] HIS [facility] AND NO ALTERNATE CHOSEN. [employer] VACCINE X2 D/C PLAN: HOME NO SERVICES W/ FOR TRANSPORT.
--- NOTE | 2022-01-05 15:05 | PC.NURSE ---
pt has been self monitoring his blood sugar via his insulin pump. spoke to Ulises in pharmacy and both of us will follow up.
--- NOTE | 2022-01-05 15:38 | P.DS_ITS ---
DS: Providers Provider Date of Service: 01/05/22 Date of admission: 01/05/22 03:19 Primary care physician: Derick Govea MD Consults: 01/05/22 08:27 Consult to Infectious Diseases Routine Consulting Provider: Kita Hallman Reason for consultation: ? toe infection Has provider been notified: No DS: Diagnosis Discharge Diagnosis (1) MARI (acute kidney injury): Status: Acute (2) Toe pain, left: Status: Acute DS: Summary Hospital Course Hospital Course: ?46-year-old male with past medical history of diabetes, who presents to the hospital with complaints of left toe pain in his concern for possible infection.? Patient reports that his pain started 1 days ago, pain is 7/10, nonradiating, has no trauma or injury to the big toe, denies any redness or warmth on the toe.? He reports no fever or chills, he reports good oral intake, no abdominal pain nausea or vomiting, no diarrhea constipation, no urinary symptoms.? And no lower extremity edema Arrival to the ED patient hemodynamically stable with no significant vitals Labs are significant for? BUN of 24, and creatinine of 1.63 with a baseline around 1.3 .? patient received IV fluids with only slightly improvement in his creatinine function therefore will be admitted for further management. Hospital course: Patient was admitted for MARI, also had some toe pain left-sided: Patient was hydrated MARI seems to be improved renal function at baseline, encourage for p.o. hydration, monitor renal function and electrolytes out patiently with PCP. Toe pain: Resolved spontaneously, inflammatory markers seems fine, foot x-ray also came out to be fine, venous duplex study negative. Patient is asymptomatic now, denies any leg pain or foot pain, if patient has leg pain or foot pain again consider repeating DVT study out patiently with PCP. he says he has pcp appointment tomorrrow. Above management discussed with the patient in detail length with monument installer(miss Parnell)he understand and in agreement with the above plan, time spent 50 minutes and 50% time spent on counseling. Significant findings: As above. Procedures performed: None. Treatment and response: As above. Complications: None. Time Spent with Patient Time attestation: Total time spent providing and/or coordinating discharge services: Discharge coordination time: Greater than 30 minutes Quality: Stroke Does the patient have a stroke diagnosis?: No Physical Exam Vital Signs: Vital Signs: Last Vital Signs Temp 97.0 F 01/05/22 08:24 Pulse 70 01/05/22 08:24 Resp 15 01/05/22 08:24 BP 153/82 H 01/05/22 08:24 Pulse Ox 98 01/05/22 08:24 BMI result Body Mass Index 26.9 Appearance: Alert.? Oriented X3.? not in distress.? Eyes: Pupils equal, round and reactive to light.? Sclera nonicteric.? ENT: Pharynx normal.? Moist mucous membranes. cvs: rrr, [id number] . res: clear to auscultation ,no rhonchii or wheezing abd: no rebound or guarding ,nt, bs present. ext pulses present , no cyanosis ,no erythema or swelling noted on lower ext b/l including toes ,patient walking fine . neuro: axo3 , nonfocal. DS: Data Data Completed and Pending Labs on day of discharge: Laboratory Results - last 24 hr 01/04/22 01/04/22 01/04/22 21:54 21:54 21:54 WBC 8.4 RBC 4.34 L Hgb 12.4 L Hct 38.7 L MCV 89.2 MCH 28.6 MCHC 32.0 RDW 13.2 Plt Count 242 MPV 9.7 Immature Gran % (Auto) 0.4 Neut % (Auto) 62.7 Lymph % (Auto) 27.1 [place] % (Auto) 8.4 Eos % (Auto) 1.2 Baso % (Auto) 0.2 Lymph # (Auto) 2.3 [place] # (Auto) 0.7 Eos # (Auto) 0.1 Baso # (Auto) 0.0 Abs Immat Gran (auto) 0.03 Absolute Neuts (auto) 5.3 Absolute Nucleated RBC 0.000 Nucleated RBC % (auto) 0.0 ESR PT 11.4 INR 1.0 APTT 32.8 Sodium 139 Potassium 4.1 Chloride 106 Carbon Dioxide 27 Anion Gap 10 L BUN 26 H Creatinine 1.63 H Estim Creat Clear Calc 65.8 Estimated GFR 46 POC Glucose Random Glucose 138 H Uric Acid Calcium 9.9 Total Bilirubin 0.4 AST 15 ALT 18 Alkaline Phosphatase 111 C-Reactive Protein Total Protein 7.5 Albumin 4.2 Urine Color Urine Appearance Urine pH Ur Specific [place] Urine Protein Urine Glucose (UA) Urine Ketones Urine Blood Urine Nitrite Ur Leukocyte Esterase COVID-19 ([facility]) COVID-19 Clin Com 01/05/22 01/05/22 01/05/22 00:25 01:38 03:57 WBC RBC Hgb Hct MCV MCH MCHC RDW Plt Count MPV Immature Gran % (Auto) Neut % (Auto) Lymph % (Auto) [place] % (Auto) Eos % (Auto) Baso % (Auto) Lymph # (Auto) [place] # (Auto) Eos # (Auto) Baso # (Auto) Abs Immat Gran (auto) Absolute Neuts (auto) Absolute Nucleated RBC Nucleated RBC % (auto) ESR PT INR APTT Sodium 140 Potassium 3.9 Chloride 109 H Carbon Dioxide 25 Anion Gap 10 L BUN 24 H Creatinine 1.45 H Estim Creat Clear Calc 74.0 Estimated GFR 52 POC Glucose Random Glucose 132 H Uric Acid Calcium 8.9 D Total Bilirubin 0.4 AST 14 ALT 16 Alkaline Phosphatase 100 C-Reactive Protein Total Protein 6.3 L Albumin 3.6 Urine Color YELLOW Urine Appearance CLEAR Urine pH 6.0 Ur Specific [place] 1.025 Urine Protein NEG Urine Glucose (UA) NEG Urine Ketones NEG Urine Blood NEG Urine Nitrite NEG Ur Leukocyte Esterase NEG COVID-19 ([facility]) Negative COVID-19 Clin Com See Note 01/05/22 01/05/22 01/05/22 06:50 06:50 07:05 WBC 6.1 RBC 4.14 L Hgb 11.8 L Hct 36.5 L MCV 88.2 MCH 28.5 MCHC 32.3 RDW 13.3 Plt Count 214 MPV 9.6 Immature Gran % (Auto) 0.3 Neut % (Auto) 55.6 Lymph % (Auto) 33.7 [place] % (Auto) 8.6 Eos % (Auto) 1.6 Baso % (Auto) 0.2 Lymph # (Auto) 2.1 [place] # (Auto) 0.5 Eos # (Auto) 0.1 Baso # (Auto) 0.0 Abs Immat Gran (auto) 0.02 Absolute Neuts (auto) 3.4 Absolute Nucleated RBC 0.000 Nucleated RBC % (auto) 0.0 ESR 16 H PT INR APTT Sodium 139 Potassium 4.0 Chloride 108 Carbon Dioxide 24 Anion Gap 11 L BUN 21 H Creatinine 1.31 Estim Creat Clear Calc 81.9 Estimated GFR 59 POC Glucose Random Glucose 122 H Uric Acid 6.7 Calcium 8.7 Total Bilirubin AST ALT Alkaline Phosphatase C-Reactive Protein 0.14 Total Protein Albumin Urine Color Urine Appearance Urine pH Ur Specific [place] Urine Protein Urine Glucose (UA) Urine Ketones Urine Blood Urine Nitrite Ur Leukocyte Esterase COVID-19 ([facility]) COVID-19 Clin Com 01/05/22 08:21 WBC RBC Hgb Hct MCV MCH MCHC RDW Plt Count MPV Immature Gran % (Auto) Neut % (Auto) Lymph % (Auto) [place] % (Auto) Eos % (Auto) Baso % (Auto) Lymph # (Auto) [place] # (Auto) Eos # (Auto) Baso # (Auto) Abs Immat Gran (auto) Absolute Neuts (auto) Absolute Nucleated RBC Nucleated RBC % (auto) ESR PT INR APTT Sodium Potassium Chloride Carbon Dioxide Anion Gap BUN Creatinine Estim Creat Clear Calc Estimated GFR POC Glucose 154 H Random Glucose Uric Acid Calcium Total Bilirubin AST ALT Alkaline Phosphatase C-Reactive Protein Total Protein Albumin Urine Color Urine Appearance Urine pH Ur Specific [place] Urine Protein Urine Glucose (UA) Urine Ketones Urine Blood Urine Nitrite Ur Leukocyte Esterase COVID-19 ([facility]) COVID-19 Clin Com Additional Comments Additional comments: Foot X-Ray? 01/04/22 20:11 IMPRESSION: No acute bony abnormality. Similar appearance to the 2017 study. Venous Duplex? 01/04/22 21:36 IMPRESSION: No DVT demonstrated in the left lower extremity with the caveat of limited evaluation of the peroneal veins due to overlying subcutaneous edema. Discharge Plan Discharge Patient Disposition: Home, Self-Care Discharge Diagnosis: mari,toe pain Referrals: Derick Ernst MD [Primary Care Provider] - 1 Week Discharge Medications: Continued atorvastatin 40 mg tablet 40 mg PO DAILY 0RF hydroxyzine pamoate 50 mg capsule 50 mg PO TID 0RF omeprazole 40 mg capsule,delayed release(DR/EC) 40 mg PO QAM 0RF loratadine 10 mg tablet 10 mg PO DAILY 0RF insulin aspart U-100 [Novolog Flexpen U-100 Insulin] 100 unit/mL (3 mL) insulin pen 15 unit subcut TID 0RF Lantus Solostar U-100 Insulin 100 unit/mL (3 mL) insulin pen 60 unit subcut BEDTIME 0RF Ozempic 1 mg/dose (4 mg/3 mL) pen injector 1 mg subcut 0RF Rx Instructions: Weekly on Mondays tizanidine 2 mg tablet 4 mg PO TID PRN (Reason: Back Pain) 0RF Discharge Orders: Discharge Order (Routine); Ordered 01/05/22 Ordered By: Cecy Taylor Diet: advance to usual diet and diabetic diet Activity on Discharge: As tolerated Stand Alone Forms: Patient Portal Discharge page Care Plan Goals: Patient was admitted for MARI, also had some toe pain left-sided: Patient was hydrated MARI seems to be improved renal function at baseline, encourage for p.o. hydration, monitor renal function and electrolytes out patiently with PCP. Toe pain: Resolved spontaneously, inflammatory markers seems fine, foot x-ray also came out to be fine, venous duplex study negative. Patient is asymptomatic now, denies any leg pain or foot pain, if patient has leg pain or foot pain again consider repeating DVT study out patiently with PCP. Health Concerns: As above. Plan of Treatment: As above. Assessment: As above.
--- NOTE | 2022-01-05 15:45 | MHC.CM.PN ---
SRINIVASAN 01/05/22 Male DX MARI Is discharged home today with family assist and transportation.
--- NOTE | 2022-01-05 15:47 | PC.NURSE ---
pt ambulated in room with this writer producer, he denied dizziness/weakness/sob. no complaints. He was seen by Dr. Taylor and is now medically cleared for discharge. pt aware of plan. vss, denies pain.
== END 2022-01-05 15:57 | disposition home or self-care (01) ==
LOC: HO.ED 01-05 03:24 → HO.EDOVER 01-05 03:47
PROVIDERS: Physician Assistant; Admitting Provider Internal Medicine; Emergency Provider Emergency Medicine Emergency Medical Services; PCP Internal Medicine; Visit Provider Internal Medicine
DX: N17.9 Acute kidney failure, unspecified (principal); M79.675 Pain in left toe(s); E11.9 Type 2 diabetes mellitus without complications; I10 Essential (primary) hypertension; E78.5 Hyperlipidemia, unspecified; Z20.822 Contact with and (suspected) exposure to COVID-19; Z88.6 Allergy status to analgesic agent; Z79.4 Long term (current) use of insulin; Z79.899 Other long term (current) drug therapy
CPT/HCPCS: 36415; 73630; 80048; 80053; 81003; 82947; 84550; 85025; 85610; 85652; 85730; 86140; 87635; 93971; 96361; 96374; 96375; 99218; 99285

== ENCOUNTER → 2022-02-20 09:57 | Outpatient (BNVA) | payer OTHER, SELFPAY | PROVIDERS: PCP Internal Medicine; Visit Provider Internal Medicine | DX: Z13.89 Encounter for screening for other disorder (principal) ==

== ENCOUNTER 2022-03-08 20:01 | Emergency (ER) | payer OTHER, SELFPAY ==
--- NOTE | ~2022-03-08 | XR_ITS ---
EXAMINATION: XR CHEST CLINICAL INFORMATION: Palpitations COMPARISON: None TECHNIQUE: Frontal view of the chest was obtained. FINDINGS: No significant abnormality is noted involving the heart, lungs, mediastinum, bony thorax or soft tissues. XR/XR chest 1V IMPRESSION: Unremarkable examination.
--- NOTE | 2022-03-08 20:14 | ECG_ITS ---
Test Reason : PALPITATIONS Blood Pressure : / mmHG Vent. Rate : 067 BPM Atrial Rate : 067 BPM P-R Int : 194 ms QRS Dur : 088 ms QT Int : 388 ms P-R-T Axes : 040 001 017 degrees QTc Int : 409 ms Normal sinus rhythm Normal ECG No previous ECGs available Referred By: Generic ED Physician Electronically Signed By:BRENDA OSULLIAVN MD
[2022-03-08 20:18] VITALS: BP 116/57; PULSE 78; RESP 19; TEMP 36.8; O2SAT 100; BMI 37.9
[2022-03-08 21:10] LABS: Appearance Urine CLEAR; Color Urine YELLOW; Glucose Urine UA NEG (NEG); Leukocyte Esterase Urine NEG (NEG); Nitrite Urine NEG (NEG); Specific Gravity - Urine <= 1.005 (1.005-1.025); Urine Blood NEG (NEG); Urine Ketones NEG (NEG); Urine Protein NEG (NEG-TRACE)
[2022-03-08 21:26] LABS: MANUAL DIFF FLAG NO
[2022-03-08 21:45] LABS: Anion Gap 12 (12-20); Blood Urea Nitrogen 18 mg/dL (9-16); Calcium 9.2 mg/dL (8.4-10.2); Carbon Dioxide 25 mmol/L (22-29); Chloride 104 mmol/L (96-108); Creatinine Clr Calc Pharmacy 79.1; Estimated Glomerular Filt Rate 44; Glucose Random 278 mg/dL (60-115); Potassium 4.6 mmol/L (3.3-5.1); Sodium 136 mmol/L (135-145)
[2022-03-08 21:46] LABS: Basophils Percent Auto 0.2 % (0-2); Eosinophils Absolute Auto 0.1 X10*3/uL (0.0-0.4); Eosinophils Percent Auto 1.3 % (0-4); Hematocrit 35.6 % (42.0-52.0); Hemoglobin 11.5 g/dl (14.0-18.0); Imm Gran Abs Auto 0.04 X10*3/uL (0.00-0.03); Imm Gran Pct Auto 0.5 % (0.0-0.4); Lymphocytes Absolute Auto 2.5 X10*3/uL (1.2-4.9); Lymphocytes Percent Auto 29.9 % (20-40); Mean Corpuscular HGB Conc 32.3 g/dl (31.0-36.0); Mean Corpuscular Hemoglobin 27.8 pg (27.0-33.0); Mean Corpuscular Volume 86.2 fL (80.0-98.0); Mean Platelet Volume 10.2 fL (9.4-12.4); Monocytes Absolute Auto 0.5 X10*3/uL (0.1-1.2); Monocytes Percent Auto 6.2 % (2-11); Neutrophils Absolute Auto 5.1 x10*3/uL (2.0-8.3); Neutrophils Percent Auto 61.9 % (45-73); Platelet Count 248 X10*3/uL (160-400); Red Blood Count 4.13 X10*6/uL (4.60-5.80); Red Cell Distribution Width 13.5 % (11.0-16.0); White Blood Count 8.3 X10*3/uL (4.8-10.8)
[2022-03-08 21:53] LABS: Troponin-I High Sensitivity < 3.5 ng/L (<3.5-35.0)
--- NOTE | 2022-03-09 01:56 | ED_ITS ---
HPI - Arrhythmia/Palpitations General Chief Complaint: Arrhythmia/Palpitations Stated Complaint: Palpitations, SOB Time Seen by Provider: 03/09/22 01:56 Source: patient and family () Mode of arrival: ambulatory History of Present Illness HPI narrative: 47-year-old male with history of diabetes and hypertension as well as recent diagnosis of panic attacks since March of last year presents with multiple episodes of ?heart racing and palpitations? over the past week that were not activity-specific in nature and he describes that they occurred while at rest as well as while he was fishing. Patient denies any adjustment in medications and has been consuming his usual amounts of caffeine. Patient denies any associated headache, dizziness, nausea, or diaphoresis. Patient states he does suffer from anxiety but he says that ?this felt different?. Otherwise, he denies any fever, chills, GI or symptoms. Related Data Home Medications Medication Instructions Recorded Confirmed atorvastatin 40 mg tablet 40 mg PO DAILY 01/05/22 02/20/22 hydroxyzine pamoate 50 mg capsule 50 mg PO TID 01/05/22 02/20/22 insulin aspart U-100 100 unit/mL 15 unit SUBCUT TID 01/05/22 02/20/22 (3 mL) subcutaneous pen (Novolog Flexpen U-100 Insulin aspart) insulin glargine 100 unit/mL (3 60 unit SUBCUT BEDTIME 01/05/22 02/20/22 mL) subcutaneous pen (Lantus Solostar U-100 Insulin) loratadine 10 mg tablet 10 mg PO DAILY 01/05/22 02/20/22 omeprazole 40 mg capsule,delayed 40 mg PO QAM 01/05/22 02/20/22 release semaglutide 1 mg/dose (4 mg/3 mL) 1 mg SUBCUT 01/05/22 02/20/22 subcutaneous pen injector (Ozempic) aspirin 81 mg tablet,delayed 81 mg PO DAILY 02/20/22 02/20/22 release blood sugar diagnostic (FreeStyle #10 ea 02/20/22 02/20/22 Lite Strips) celecoxib 200 mg capsule 200 mg PO DAILY 02/20/22 02/20/22 enalapril maleate 5 mg tablet 5 mg PO DAILY 02/20/22 02/20/22 flash glucose sensor (FreeStyle #1 ea 02/20/22 02/20/22 Naif 14 Day Sensor) ibuprofen 800 mg tablet 800 mg PO TID 02/20/22 02/20/22 lancets 33 gauge (TRUEplus Lancets) #100 ea 02/20/22 02/20/22 pen needle, diabetic 32 gauge x #50 ea 02/20/22 02/20/22 1/ (Easy Touch) tizanidine 4 mg tablet 4 mg PO TID 02/20/22 02/20/22 Allergies Allergy/AdvReac Type Severity Reaction Status Date / Time oxycodone Allergy Unknown Unknown Verified 03/08/22 20:20 Review of Systems Review of Systems: Pertinent positives and negatives as stated in HPI 10 point review of systems is otherwise negative. [facility] Past Medical History Source: nursing notes reviewed Medical History HLD (hyperlipidemia) HTN (hypertension) T2DM (type 2 diabetes mellitus) Vitamin D deficiency Surgical History Male circumcision Family History Family History Father No problems noted. Mother No problems noted. Social History Social History Alcohol intake: never Patient Tobacco Use Status: Never used Tobacco Advance Directives: No service: No Current occupational status: employed Physical Exam Vital Signs: Vital Signs: Last Vital Signs Temp 98.3 F 03/08/22 20:18 Pulse 78 03/08/22 20:18 Resp 19 03/08/22 20:18 BP 116/57 L 03/08/22 20:18 Pulse Ox 100 03/08/22 20:18 BMI result Body Mass Index 37.9 VITAL SIGNS: Reviewed. GENERAL: Well developed, well nourished, in no acute distress. HEAD: Normocephalic/atraumatic EYES: PERRLA, EOMI EARS: Ext canals without abnormality OROPHARYNX: no oral lesions noted, posterior pharynx clear LUNGS: Normal breath sounds. SpO2<100> CARDIOVASCULAR: Regular rate and rhythm without noted murmurs, no JVD or lower extremity edema. ABDOMEN: Soft, non-tender, non-distended with bowel sounds. MUSCULOSKELETAL: No tenderness, deformities, or effusions noted on gross inspection. EXTREMITIES: No cyanosis, clubbing or edema. SKIN: Inspection of the skin reveals no rashes NEUROLOGIC: Alert and oriented x 4. Strength and sensation to light touch were grossly intact x 4, patient is noted to be somewhat tremulous. Course Course Course Narrative: 47-year-old male with history and clinical presentation most suggestive of anxiety, however will rule out infection/anemia/arrhythmia. Review of all investigations otherwise negative for acute findings and no acute findings on EKG. There is a noted mild elevation patient's lipase, however in the absence of abdominal pain, nausea, vomiting, fevers or chills this is a unlikely due to gallbladder etiology. Patient was instructed to follow-up with his primary care provider to get her repeat level. Patient and were informed of all results. MDM - Arrhythmia/Palpitations Lab Data Result diagrams: 03/08/22 21:11 03/08/22 21:11 Labs: Lab Results 03/08/22 03/08/22 03/08/22 Range/Units 20:46 21:11 21:11 WBC 8.3 (4.8-10.8) X10*3/uL RBC 4.13 L (4.60-5.80) X10*6/uL Hgb 11.5 L (14.0-18.0) g/dl Hct 35.6 L (42.0-52.0) % MCV 86.2 (80.0-98.0) fL MCH 27.8 (27.0-33.0) pg MCHC 32.3 (31.0-36.0) g/dl RDW 13.5 (11.0-16.0) % Plt Count 248 (160-400) X10*3/uL MPV 10.2 (9.4-12.4) fL Immature Gran % (Auto) 0.5 H (0.0-0.4) % Neut % (Auto) 61.9 (45-73) % Lymph % (Auto) 29.9 (20-40) % [place] % (Auto) 6.2 (2-11) % Eos % (Auto) 1.3 (0-4) % Baso % (Auto) 0.2 (0-2) % Lymph # (Auto) 2.5 (1.2-4.9) X10*3/uL [place] # (Auto) 0.5 (0.1-1.2) X10*3/uL Eos # (Auto) 0.1 (0.0-0.4) X10*3/uL Baso # (Auto) 0.0 (0.0-0.2) X10*3/uL Abs Immat Gran (auto) 0.04 H (0.00-0.03) X10*3/uL Absolute Neuts (auto) 5.1 (2.0-8.3) x10*3/uL Absolute Nucleated RBC 0.000 (0.0-0.012) X10*3/uL Nucleated RBC % (auto) 0.0 (0.0-0.2) /100WBC Sodium 136 (135-145) mmol/L Potassium 4.6 (3.3-5.1) mmol/L Chloride 104 (96-108) mmol/L Carbon Dioxide 25 (22-29) mmol/L Anion Gap 12 (12-20) BUN 18 H (9-16) mg/dL Creatinine 1.68 H (0.5-1.4) mg/dL Estim Creat Clear Calc 79.1 Estimated GFR 44 Random Glucose 278 H D (60-115) mg/dL Calcium 9.2 (8.4-10.2) mg/dL Total Bilirubin 0.6 (0.0-1.0) mg/dL Direct Bilirubin 0.2 (0.0-0.5) mg/dL AST 26 D (5-37) U/L ALT 24 (0-40) U/L Alkaline Phosphatase 103 (39-117) U/L Troponin I High Sens (<3.5-35.0) ng/L Total Protein 7.1 (6.5-8.0) g/dL Albumin 3.9 (3.5-5.0) g/dL Lipase 104 H (8-78) U/L Urine Color YELLOW Urine Appearance CLEAR Urine pH 6.0 (5.0-8.0) Ur Specific [place] <= 1.005 (1.005-1.025) Urine Protein NEG (NEG-TRACE) MG/DL Urine Glucose (UA) NEG (NEG) MG/DL Urine Ketones NEG (NEG) MG/DL Urine Blood NEG (NEG) Urine Nitrite NEG (NEG) Ur Leukocyte Esterase NEG (NEG) 05/14/22 Range/Units 21:11 WBC (4.8-10.8) X10*3/uL RBC (4.60-5.80) X10*6/uL Hgb (14.0-18.0) g/dl Hct (42.0-52.0) % MCV (80.0-98.0) fL MCH (27.0-33.0) pg MCHC (31.0-36.0) g/dl RDW (11.0-16.0) % Plt Count (160-400) X10*3/uL MPV (9.4-12.4) fL Immature Gran % (Auto) (0.0-0.4) % Neut % (Auto) (45-73) % Lymph % (Auto) (20-40) % [place] % (Auto) (2-11) % Eos % (Auto) (0-4) % Baso % (Auto) (0-2) % Lymph # (Auto) (1.2-4.9) X10*3/uL [place] # (Auto) (0.1-1.2) X10*3/uL Eos # (Auto) (0.0-0.4) X10*3/uL Baso # (Auto) (0.0-0.2) X10*3/uL Abs Immat Gran (auto) (0.00-0.03) X10*3/uL Absolute Neuts (auto) (2.0-8.3) x10*3/uL Absolute Nucleated RBC (0.0-0.012) X10*3/uL Nucleated RBC % (auto) (0.0-0.2) /100WBC Sodium (135-145) mmol/L Potassium (3.3-5.1) mmol/L Chloride (96-108) mmol/L Carbon Dioxide (22-29) mmol/L Anion Gap (12-20) BUN (9-16) mg/dL Creatinine (0.5-1.4) mg/dL Estim Creat Clear Calc Estimated GFR Random Glucose (60-115) mg/dL Calcium (8.4-10.2) mg/dL Total Bilirubin (0.0-1.0) mg/dL Direct Bilirubin (0.0-0.5) mg/dL AST (5-37) U/L ALT (0-40) U/L Alkaline Phosphatase (39-117) U/L Troponin I High Sens < 3.5 (<3.5-35.0) ng/L Total Protein (6.5-8.0) g/dL Albumin (3.5-5.0) g/dL Lipase (8-78) U/L Urine Color Urine Appearance Urine pH (5.0-8.0) Ur Specific [place] (1.005-1.025) Urine Protein (NEG-TRACE) MG/DL Urine Glucose (UA) (NEG) MG/DL Urine Ketones (NEG) MG/DL Urine Blood (NEG) Urine Nitrite (NEG) Ur Leukocyte Esterase (NEG) ECG Data Attestation: I personally reviewed and interpreted this ECG as follows: Prior ECG tracings: available for review Interpretation: NSR, HR -67, no STEMI, LA/QRS/QTC are within normal limits. Discharge Plan Discharge Clinical Impression: Heart palpitations, T2DM (type 2 diabetes mellitus), HTN (hypertension), MARI (acute kidney injury), Anxiety Patient Disposition: Home, Self-Care Instructions: Heart Palpitations (ED) Additional Instructions: 1. Reanudar todos los medicamentos caseros seg?n lo prescrito. 2. Aumenta tu hidrataci?n fluida, especialmente con agua. Recomendarle que reduzca la cantidad de cafe?na que consume hasta que bran proveedor de atenci?n primaria lo eval?e m?s a fondo. 3. Se observ? que bran valor de lipasa est? elevado sin s?ntomas asociados y deber? Geoffrey un seguimiento con bran proveedor de atenci?n primaria para repetir esta prueba. 5. Geoffrey un seguimiento con bran proveedor de atenci?n primaria llamando a la oficina el lunes por la ma?satya para programar leana cachorro para leana reevaluaci?n. Regrese a la mazin de emergencias si los s?ntomas empeoran. Prescriptions: No Action atorvastatin 40 mg tablet 40 mg PO DAILY 0RF hydroxyzine pamoate 50 mg capsule 50 mg PO TID 0RF omeprazole 40 mg capsule,delayed release(DR/EC) 40 mg PO QAM 0RF loratadine 10 mg tablet 10 mg PO DAILY 0RF insulin aspart U-100 [Novolog Flexpen U-100 Insulin] 100 unit/mL (3 mL) insulin pen 15 unit subcut TID 0RF Lantus Solostar U-100 Insulin 100 unit/mL (3 mL) insulin pen 60 unit subcut BEDTIME 0RF Ozempic 1 mg/dose (4 mg/3 mL) pen injector 1 mg subcut 0RF Rx Instructions: Weekly on Mondays tizanidine 4 mg tablet 4 mg PO TID 0RF (DME) FreeStyle Naif 14 Day Sensor Kit See Rx Instructions ea topical Q2W Qty: 1 0RF Rx Instructions: As directed (DME) lancets [TRUEplus Lancets] 33 gauge misc See Rx Instructions ea topical BID Qty: 100 0RF Rx Instructions: As directed (DME) FreeStyle Lite Strips Strip See Rx Instructions strip Not Applicable QID Qty: 10 0RF Rx Instructions: As directed celecoxib 200 mg capsule 200 mg PO DAILY 0RF (DME) pen needle, diabetic [Easy Touch] 32 gauge x 1/4 needle See Rx Instructions ea .ROUTE .MEDSUPPLY Qty: 50 0RF Rx Instructions: As directed aspirin 81 mg tablet,delayed release (DR/EC) 81 mg PO DAILY 0RF enalapril maleate 5 mg tablet 5 mg PO DAILY 0RF ibuprofen 800 mg tablet 800 mg PO TID 0RF Referrals: Derick Ernst MD [Primary Care Provider] - Print Language: Nicaraguan
[2022-03-09 02:13] LABS: Alanine Aminotransferase 24 U/L (0-40); Albumin Level 3.9 g/dL (3.5-5.0); Alkaline Phosphatase 103 U/L (39-117); Aspartate Amino Transferase 26 U/L (5-37); Bilirubin Direct 0.2 mg/dL (0.0-0.5); Bilirubin Total 0.6 mg/dL (0.0-1.0); Lipase 104 U/L (8-78); Total Protein 7.1 g/dL (6.5-8.0)
[2022-03-09 02:57] VITALS: BP 121/60; PULSE 62; RESP 18; TEMP 36.7; O2SAT 100
== END 2022-03-09 03:06 | disposition home or self-care (01) ==
PROVIDERS: Emergency Provider Student in an Organized Health Care Education/Training Program; PCP Internal Medicine
DX: N17.9 Acute kidney failure, unspecified (principal); R00.2 Palpitations; E11.9 Type 2 diabetes mellitus without complications; I10 Essential (primary) hypertension; F41.9 Anxiety disorder, unspecified
CPT/HCPCS: 36415; 71045; 80048; 80076; 81003; 83690; 84484; 85025; 93005; 99283

== ENCOUNTER 2022-03-13 09:57 | Outpatient (REF) | payer OTHER, SELFPAY ==
[2022-03-13 10:57] LABS: Estimated Average Glucose 192 mg/dL; Hemoglobin A1c % 8.3 %
[2022-03-13 11:09] LABS: Alanine Aminotransferase 25 U/L (0-40); Albumin Level 4.2 g/dL (3.5-5.0); Alkaline Phosphatase 103 U/L (39-117); Anion Gap 10 (12-20); Aspartate Amino Transferase 17 U/L (5-37); Bilirubin Total 0.9 mg/dL (0.0-1.0); Blood Urea Nitrogen 14 mg/dL (9-16); Calcium 9.5 mg/dL (8.4-10.2); Carbon Dioxide 29 mmol/L (22-29); Chloride 105 mmol/L (96-108); Cholesterol 123 mg/dL; Estimated Glomerular Filt Rate 56; Glucose Random 117 mg/dL (60-115); HDL Cholesterol 31 mg/dL; LDL Cholesterol Calculated 69 mg/dl; Potassium 4.5 mmol/L (3.3-5.1); Sodium 139 mmol/L (135-145); Total Protein 7.5 g/dL (6.5-8.0); Triglycerides 119 mg/dL
[2022-03-13 11:31] LABS: Vitamin D 25-OH Total 29.8 ng/mL (>30)
[2022-03-13 11:34] LABS: Vitamin B12 187 pg/mL (200-900)
[2022-03-13 12:06] LABS: Creatinine Urine 80.63 mg/dL; Microalbum/Creatinine Ratio Ur 12.4 ug/mg cr
[2022-03-15 05:22] LABS: LDL Cholesterol Direct 69 mg/dL (<100)
== END 2022-03-13 09:58 | disposition home or self-care (01) ==
LOC: HO.LAB 09:57
PROVIDERS: PCP Internal Medicine; Visit Provider Internal Medicine
DX: E11.65 Type 2 diabetes mellitus with hyperglycemia (principal); E55.9 Vitamin D deficiency, unspecified; Z79.4 Long term (current) use of insulin
CPT/HCPCS: 36415; 80053; 80061; 82043; 82306; 82607; 83036; 83721

== ENCOUNTER → 2022-03-17 12:32 | Outpatient (BNVA) | payer OTHER, SELFPAY | PROVIDERS: PCP Internal Medicine; Visit Provider Internal Medicine | DX: E11.9 Type 2 diabetes mellitus without complications (principal); E55.9 Vitamin D deficiency, unspecified; E78.5 Hyperlipidemia, unspecified; I10 Essential (primary) hypertension | CPT/HCPCS: Q3014 ==

== ENCOUNTER 2022-09-26 12:04 | Outpatient (REF) | payer OTHER, SELFPAY ==
[2022-09-26 14:35] LABS: Estimated Average Glucose 183 mg/dL
[2022-09-26 14:52] LABS: Alanine Aminotransferase 17 U/L (0-40); Albumin Level 4.2 g/dL (3.5-5.0); Alkaline Phosphatase 115 U/L (39-117); Anion Gap 12 (12-20); Aspartate Amino Transferase 15 U/L (5-37); Bilirubin Total 0.9 mg/dL (0.0-1.0); Blood Urea Nitrogen 14 mg/dL (9-16); Calcium 9.5 mg/dL (8.4-10.2); Carbon Dioxide 26 mmol/L (22-29); Chloride 101 mmol/L (96-108); Estimated Glomerular Filt Rate 58; Glucose Random 166 mg/dL (60-115); Potassium 4.5 mmol/L (3.3-5.1); Sodium 134 mmol/L (135-145); Total Protein 7.5 g/dL (6.5-8.0)
== END 2022-09-26 12:05 | disposition home or self-care (01) ==
LOC: HO.LAB 12:04
PROVIDERS: Visit Provider Internal Medicine
DX: E11.65 Type 2 diabetes mellitus with hyperglycemia (principal); Z79.4 Long term (current) use of insulin
CPT/HCPCS: 36415; 80053; 83036

== ENCOUNTER → 2023-02-11 14:47 | Outpatient (REF) | payer OTHER, SELFPAY ==
--- NOTE | 2023-02-11 14:50 | CA_ITS ---
Transthoracic Echocardiogram Patient (Last, First, Middle): Glen Savage, Gender: Male Date of : 1975 Age: 48 Procedure Date: 02/11/2023 Procedure Type: Transthoracic Echocardiogram Location: OP Height: 187.96 cm Weight: 129.28 kg BSA: 2.53 m2 Heart Rate: bpm BP: 138 / 80 mmHg Deportation Examiner: Referring MD: Derick Govea MD Symptoms: I10- Primary hypertension Study Quality: Fair ECG Rhythm: Sinus Conclusions: - The left ventricular systolic function is normal. The visually estimated ejection fraction is between 60-65%. - No obvious valvular pathology seen on this study. Findings Left Ventricle Normal left ventricular cavity size. There is mildly increased left ventricular wall thickness. The left ventricular systolic function is normal. The visually estimated ejection fraction is between 60-65%. There is no evidence of regional wall motion abnormalities. Diastolic function is normal for age. Right Ventricle Normal right ventricular cavity size and systolic function. Atria Both atria are normal in size. Aortic Valve There is a normal trileaflet aortic valve. There is no aortic valve stenosis. There is no aortic valve regurgitation. Mitral Valve The mitral valve appears normal. There is trace mitral valve regurgitation. There is no mitral valve stenosis. Pulmonic Valve The pulmonic valve is likely normal. Tricuspid Valve There is mild tricuspid valve regurgitation. There is no evidence of pulmonary hypertension. Great Vessels The asc aorta is normal in size. Venous The inferior vena cava was not well visualized. The inferior vena cava is normal in size and collapses greater than 50% with inspiration. Pericardium/Pleural There is no evidence of pericardial effusion. Prior Study Comparison No prior study available for comparison. Recommendations, Care & Conclusions No obvious valvular pathology seen on this study. Measurements 2D Linear Measurements IVSd: 1.27 0.6-0.9/0.6-1.0 cm LVIDd: 3.09 3.9-5.3/4.2-5.9 cm LVIDd Index: 1.22 2.4-3.2/2.2-3.1 cm/m2 LVIDs: 2.13 2.0-3.6 cm LVPWd: 1.25 0.7-1.1 cm Ao Root: 2.90 2.1-3.5 cm LA Diam: 3.70 2.7-3.8/3.0-4.0 cm LAIDs Index: 1.46 1.5-2.3 cm/m2 LV Mass: 152.94 67-162/88-224 g LV Mass Index: 60.45 43-95/49-115 g/m2 LVOT Diam: 2.10 3.0+(-)1.3 cm 2D Systolic Function EF 4C: 63.40 >55% Mitral Valve MV Pk E: 0.81 MV PK A: 0.72 MV Decel Time: 176.00 E/A: 1.10 E'Lateral: 9.25 E'Medial: 8.81 E/E' Med: 9.10 E/E' Lat: 8.70 PHT: 52.00 MVA PHT: 4.23 Decel [place]: 4.57 Aortic Valve AoV Pk Diego: 1.42 AoV Mn Diego: 0.89 AoV VTI: 0.29 AoV Pk Grad: 8.00 Aov Mn Grad: 4.00 JOSELO Cont.VTI: 1.78 LVOT LVOT Pk Diego: 0.54 LVOT Mn Diego: 0.38 LVOT VTI: 0.15 LVOT Pk Grad: 1.00 LVOT Mn Grad: 1.00 LVOT Diam: 2.10 LVOT Area: 3.46 Diastolic Function MV Pk E: 0.81 MV Pk A: 0.72 E/A: 1.10 E'Medial: 8.81 E/E' Med: 9.10 E' Laterial: 9.25 E/E' Lat: 8.70 Right Ventricle TAPSE (mm): 34.00 TVS' Diego: 14.00 Tricuspid Valve TR Pk Diego: 2.46 TR Pk Grad: 24.00 RA Press: 3.00 RVSP: 27.00 Great Vessels Aorta Ao Root-2D: 2.90 2.0-3.7 cm Ao Asc: 3.00 2.1-3.4 cm Pulmonary Valve PV Pk Diego: 1.50 Peak PV Grad: 9.00 Updated in Other Vendor System with Status of Final Myles Paz MD electronically signed on 02/13/2023 11:36:14 AM with status of Final
== END ==
LOC: HO.CARD 14:47
PROVIDERS: PCP Internal Medicine; Visit Provider Internal Medicine
DX: I10 Essential (primary) hypertension (principal)
CPT/HCPCS: 93306

== ENCOUNTER 2023-05-26 13:56 | Outpatient (REF) | payer OTHER, MEDICAID, SELFPAY ==
[2023-05-26 18:01] LABS: Creatinine Urine 402.32 mg/dL; Microalbum/Creatinine Ratio Ur 25.3 ug/mg cr
[2023-05-26 18:06] LABS: Alanine Aminotransferase 21 U/L (0-40); Alkaline Phosphatase 97 U/L (39-117); Anion Gap 16 (12-20); Aspartate Amino Transferase 19 U/L (5-37); Bilirubin Direct 0.2 mg/dL (0.0-0.5); Bilirubin Total 0.5 mg/dL (0.0-1.0); Blood Urea Nitrogen 13 mg/dL (9-16); Calcium 9.5 mg/dL (8.4-10.2); Carbon Dioxide 24 mmol/L (22-29); Chloride 106 mmol/L (96-108); Cholesterol 238 mg/dL; Estimated Glomerular Filt Rate > 60; Glucose Random 117 mg/dL (60-115); HDL Cholesterol 41 mg/dL; LDL Cholesterol Calculated 169 mg/dl; Potassium 4.3 mmol/L (3.3-5.1); Sodium 142 mmol/L (135-145); Total Protein 7.7 g/dL (6.5-8.0); Triglycerides 144 mg/dL
[2023-05-26 18:21] LABS: TSH reflex Free T4 1.46 uIU/mL (0.32-4.0)
[2023-05-27 04:39] LABS: ~HepC Num1 0.12 S/CO (0.00-0.79); ~Hepatitis C Antibody Nonreactive (Nonreactive)
[2023-05-30 20:19] LABS: HIV RNA PCR Qn Copies Not Detected Copies/mL; HIV RNA PCR Qn Log Copies Not Detected Log cps/mL
== END 2023-05-26 13:57 | disposition home or self-care (01) ==
LOC: HO.CHCLDS 13:56
PROVIDERS: Visit Provider Internal Medicine
DX: E11.22 Type 2 diabetes mellitus with diabetic chronic kidney disease (principal); N18.32 Chronic kidney disease, stage 3b; Z79.4 Long term (current) use of insulin
CPT/HCPCS: 36415; 80048; 80061; 80076; 82043; 84443; 86803; 87536; 87900

== ENCOUNTER 2023-05-29 13:43 | Outpatient (RCR) | payer OTHER, SELFPAY | END 2023-08-11 10:15 | disposition home or self-care (01) | LOC: HO.WCC 13:43 | PROVIDERS: PCP Internal Medicine; Visit Provider Physician Assistant | DX: E11.622 Type 2 diabetes mellitus with other skin ulcer (principal); L97.311 Non-pressure chronic ulcer of right ankle limited to breakdown of skin; L97.312 Non-pressure chronic ulcer of right ankle with fat layer exposed; I10 Essential (primary) hypertension; Z79.4 Long term (current) use of insulin; Z86.718 Personal history of other venous thrombosis and embolism; Z87.891 Personal history of nicotine dependence | CPT/HCPCS: 11042; 97597 ==

== ENCOUNTER 2023-06-04 12:59 | Outpatient (AMB) | payer OTHER, SELFPAY ==
--- NOTE | 2023-06-04 10:38 | MHC.OFFVIS ---
Intake Intake Visit Reasons: DM, requesting no insulin Allergies oxycodone Allergy (Unknown, Verified 06/04/23 10:38) Unknown Medication List - Last Reconciled 06/04/23 by Kaity Kirk, DO aspirin 81 mg PO DAILY atorvastatin 40 mg PO DAILY blood sugar diagnostic (FreeStyle Lite Strips) As directed celecoxib 200 mg PO DAILY enalapril maleate 5 mg PO DAILY flash glucose scanning reader (FreeStyle Naif 2 Plato) As directed flash glucose sensor (FreeStyle Naif 2 Sensor kit) Once every 14 days hydroxyzine pamoate 50 mg PO TID insulin aspart U-100 (Novolog FlexPen U-100 Insulin aspart) 12 units (0.12 mL) subcut TID 30 days insulin glargine (Lantus Solostar U-100 Insulin) 60 units (0.6 mL) subcut BEDTIME 30 days lancets (TRUEplus Lancets) As directed loratadine 10 mg PO DAILY omeprazole 40 mg PO QAM pen needle, diabetic (Easy Touch) As directed 4x daily tizanidine 4 mg PO TID HPI HPI Comments History of Present Illness Details 47 YO M with PMHx T2DM ,HTN, HLD who is seen in F/U for T2DM. 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 Initially diagnosed with T2DM in 2003, which was diagnosed by his Material Handler Loader. Was initially started on treatment with Metformin, but did not tolerate this due to GI distress. He also tried Invokana, but suffered from a penile infection and this was discontinued. He also tried Bydureon, and Januvia. These were discontinued as he failed therapy. Current prescribed a regimen of Ozempic 1.0 mg once a week and Lantus 60 units qHS and Novolog 12 units AC. Has freestyle Naif CGM. Most recent A1C: 03/13/2022 8.3%, down from 8.5% 09/27/2021. Reports low sugars often. Sugar this morning was 60. Has hypoglycemic awareness. Treats with juice, and checks sugar after to make sure its rising. Has eyes checked yearly. Last visit Nov 2020. Has Neuropathy, does not see podiatry. No Nephropathy, off Enalapril now due to hypotension. UAC 25.3 05/26/2023. Has HLD, on Atorvastatin 40 mg PO daily. LDL 169 05/26/2023. Denies CAD. Diet: Does not follow a particular diet. Has had CDE. Labs: Laboratory Tests 05/26/23 05/26/23 14:01 14:30 Creatinine 1.25 Estimated GFR > 60 LDL Cholesterol, C alc 169 TSH 1.46 Microalb/Creat Rat io 25.3 PFSH Medical History HLD (hyperlipidemia) HTN (hypertension) T2DM (type 2 diabetes mellitus) Vitamin D deficiency Surgical History Male circumcision Family History Father No problems noted. Mother No problems noted. Social History Alcohol intake: never Patient Tobacco Use Status: Never used Tobacco service: No Current occupational status: employed Assessment & Plan Assessment & Plan (1) T2DM (type 2 diabetes mellitus): Code(s): E11.9 - Type 2 diabetes mellitus without complications Plan: Patient with T2DM, suboptimally controlled. I recommend decreasing his Lantus to 40 units daily and his Novolog to 8 units AC. He is refusing to use the Ozempic due to diarrhea and demanding SGLT-2 today. I reviewed with him that Invokana is an SGLT-2 medication, and he had a severe genital infection with this, so I am unable to prescribe another medication in this class today. He is requesting Januvia. Will start Januvia 100 mg PO daily and stop the Ozempic at this time. I did advise he should not be using Ozempic and Januvia together. I advised him to notify me of any low sugars. He will then F/U in 6 weeks time. All of his questions were answered today. He is in agreement with this plan of care. The importance of adherence to prescribed regimen was discussed with the patient including checking finger sticks 3-4 times per day, using medication as prescribed, monitoring for hypoglycemia and treating any episode of hypoglycemia according to the rule of 15's. The signs and symptoms of hypoglycemia were reviewed in detail, as well as the rule of 15's to treat. Proper foot care was also discussed with the patient, and the importance of yearly dilated eye exam. The patient was asked to have copy of eye exam sent to our office for review. I spent 20 minutes in reviewing the record, seeing the patient and documenting in the medical record, including 5 minutes on the phone with the Patient. (2) Vitamin D deficiency: Code(s): E55.9 - Vitamin D deficiency, unspecified Plan: Vitamin D at goal. No changes. (3) HLD (hyperlipidemia): Code(s): E78.5 - Hyperlipidemia, unspecified Qualifiers: Hyperlipidemia type: unspecified Qualified Code(s): E78.5 - Hyperlipidemia, unspecified Plan: He has been noncompliant with his statin. I will continue to encourage ocmpliance. (4) HTN (hypertension): Code(s): I10 - Essential (primary) hypertension Plan: He is off of Enalapril due to hypotension. UAC at goal. Telehealth Telehealth Location of provider rendering services: practice address Location of patient: address on file Patient Identification confirmed using: Name, : Yes Telehealth method: voice only Patient verbally consented to treatment: Yes Patient verbally consented to billing insurance company: Yes Patient informed of any privacy concerns related to visit: Yes Coding Level of Care Code Tele Est Pt Level 3 (00836) Diagnoses T2DM (type 2 diabetes mellitus) E11.9 Vitamin D deficiency E55.9 HLD (hyperlipidemia) E78.5 Hyperlipidemia type: unspecified HTN (hypertension) I10
== END 2023-06-04 13:04 | disposition home or self-care (01) ==
LOC: HO.ENCR 12:59
PROVIDERS: PCP Internal Medicine; Visit Provider Internal Medicine
DX: E11.9 Type 2 diabetes mellitus without complications (principal); E55.9 Vitamin D deficiency, unspecified; E78.5 Hyperlipidemia, unspecified; I10 Essential (primary) hypertension
CPT/HCPCS: 99213

== ENCOUNTER → 2023-06-04 12:59 | Outpatient (BNVA) | payer OTHER, SELFPAY | PROVIDERS: PCP Internal Medicine; Visit Provider Internal Medicine | DX: E11.9 Type 2 diabetes mellitus without complications (principal); E55.9 Vitamin D deficiency, unspecified; E78.5 Hyperlipidemia, unspecified; I10 Essential (primary) hypertension | CPT/HCPCS: Q3014 ==

== ENCOUNTER 2023-08-27 13:17 | Outpatient (AMB) | payer OTHER, SELFPAY ==
--- NOTE | 2023-08-27 13:24 | A.OFFVIS_ITS ---
Intake Vital Signs 08/27/23 13:27 Weight 283 lb 1.176 oz BP 124/72 Blood Pressure Location Lt brachial Position Sitting Pulse 79 Pulse Source Pulse Oximeter Intake Visit Reasons: Diabetes Type 2 with sensor Intake Note: Patient presents today to follow up on Type 2 Diabetes Mellitus. Previously seen by Dr. Perkins. Last Diabetic Eye exam:01/2023 Last Podiatry Visit: None Random Glucose: 231 mg/dl HgA1C:8.3% Pump Servicer Supervisor Required: Yes Pump Servicer Supervisor Language: Host/Hostess Ground Name: [facility] medical staff Information Interpreted: non-clinical & clinical Accompanied by: Self / Same As Patient Allergies oxycodone Allergy (Unknown, Verified 08/27/23 13:37) Unknown Medication List - Last Reconciled 08/27/23 by Benji Stovall MD aspirin 81 mg PO DAILY atorvastatin 40 mg PO DAILY blood sugar diagnostic (FreeStyle Lite Strips) As directed enalapril maleate 5 mg PO DAILY flash glucose scanning reader (FreeStyle Naif 2 [place]) USE DIRECTED flash glucose sensor (FreeStyle Naif 2 Sensor kit) Once every 14 days hydroxyzine pamoate 50 mg PO TID insulin aspart U-100 (Novolog FlexPen U-100 Insulin aspart) 8 units (0.08 mL) subcut TID 30 days insulin glargine (Lantus Solostar U-100 Insulin) 40 units (0.4 mL) subcut BEDTIME 30 days lancets (TRUEplus Lancets) As directed loratadine 10 mg PO DAILY methocarbamol 750 mg PO Q6H PRN omeprazole 40 mg PO QAM pen needle, diabetic (Easy Touch) As directed 4x daily tirzepatide (Mounjaro) 5 mg (0.5 mL) subcut QWEEK tizanidine 4 mg PO TID HPI HPI Comments History of Present Illness Details 47 YO M with PMHx T2DM ,HTN, HLD who is seen in F/U for T2DM. Patient last saw Dr. Perkins on 06/04/2023 He has renal agenesis and has a solitary kidney. Initially diagnosed with T2DM in 2003, which was diagnosed by his Screw Machine Hand. Was initially started on treatment with Metformin, but did not tolerate this due to GI distress. He also tried Invokana, but suffered from a penile infection and this was discontinued. He also tried Ozempic and Bydureon , and Januvia. These were discontinued as he failed therapy. Current prescribed a regimen of Januvia 100 mg QD and Lantus 40 units qHS and Novolog 15 units AC. Has 51wan Naif CGM. . Naif download shows he is using the sensor 90% of the time. Average glucose is 204 with G mi of 8.2% and variability 23%. 30% range with 70% hyperglycemia and no hypoglycemia Most recent A1C: 03/13/2022 8.3%, down from 8.5% 09/27/2021. Reports low sugars rarely . Sugar this morning was 60. Has hypoglycemic awareness. Treats with juice, and checks sugar after to make sure its rising. Has eyes checked yearly. Last visit 01/2023 . Has Neuropathy, does not see podiatry. No Nephropathy, off Enalapril now due to hypotension. UAC 25.3 05/26/2023. Has HLD, on Atorvastatin 40 mg PO daily. LDL 169 05/26/2023.. He admits to noncompliance with the atorvastatin Denies CAD. Diet: Does not follow a particular diet. Has had CDE. Labs: Laboratory Tests 05/26/23 05/26/23 14:01 14:30 Creatinine 1.25 Estimated GFR > 60 LDL Cholesterol, C alc 169 TSH 1.46 Microalb/Creat Rat io 25.3 PFSH Medical History HLD (hyperlipidemia) HTN (hypertension) T2DM (type 2 diabetes mellitus) Vitamin D deficiency Surgical History Male circumcision Family History Father No problems noted. Mother No problems noted. Social History Alcohol intake: never Patient Tobacco Use Status: Never used Tobacco service: No Current occupational status: employed Physical Exam Vital Signs: Last Vital Signs Pulse 79 08/27/23 13:27 BP 124/72 08/27/23 13:27 Absence of Cushingoid features. Absence of acromegalic features. Neck exam reveals nl size thyroid about 15 gms. No thyroid nodules palpable. No carotid bruits present. Lungs CTA. Heart S1 S2, Reg R/R. No M/R/ G. Skin exam reveals absence of vitiligo or acanthosis nigricans. Abdominal exam reveals Soft NT/ND with NA BS. No organomegaly present. Neck Other: . Extrem Other: Visual exam of foot performed. No ulcerations or open lesions. No onchomycosis, no callouses.Pulses 2 + distally Sensation intact to monofilament exam. Vibratory sensation sensed is intact with 128 Hz tuning fork Results Reviewed Results Reviewed: 08/27/23 13:33 Glucose, Whole Blood Routine Laboratory Last Values Glucose (Clinic) 231 mg/dL (60-115) H 08/27/23 13:33 Assessment & Plan Assessment & Plan (1) T2DM (type 2 diabetes mellitus): Code(s): E11.9 - Type 2 diabetes mellitus without complications Plan: This is a 48-year-old male with history of type 2 diabetes being treated with Januvia and basal-bolus insulin with glycemic control and known microvascular complications namely neuropathy. Plan is to talk to the patient about starting Mounjaro. Will start Mounjaro 2.5 mg and titrate as tolerated. Went over side effects of Mounjaro including but not limited to nausea, vomiting rare risk of pancreatitis. Told patient to report any hypoglycemia for adjustment of his insulin regimen. He has tried and failed or was intolerant to Ozempic and Bydureon . Will also have patient follow up with hematology nurse educator and see faculty research assistant Mounjaro 2.5 mg samples given the patient lot number [id number] C expiration date 11/27/2024 (2) HLD (hyperlipidemia): Code(s): E78.5 - Hyperlipidemia, unspecified Qualifiers: Hyperlipidemia type: unspecified Qualified Code(s): E78.5 - Hyperlipidemia, unspecified Plan: Patient with high LDL cholesterol currently on atorvastatin 40 mg q.d. patient not compliant with atorvastatin. Plan is stressed compliance with the atorvastatin recheck lipid levels in 6 weeks Orders: Orders Lipid Panel 6 Weeks E78.5 - Hyperlipidemia, unspecified Referrals Nutrition/Dietitian Referral E11.9 - Type 2 diabetes mellitus without complications Medications: New tirzepatide (Mounjaro) 5 mg (0.5 mL) subcut QWEEK 2 mL 4RF Discontinued sitagliptin phosphate (Januvia) Discontinued Reason: Doctor's Order 100 mg PO DAILY 30 days 30 tabs 3RF Coding Level of Care Code Est Pt Level 4 (61341) Diagnoses Type 2 diabetes mellitus with hyperglycemia, with long-term current use of insulin E11.9 Hyperlipidemia, unspecified hyperlipidemia type E78.5 Hyperlipidemia type: unspecified
[2023-08-27 13:27] VITALS: BP 124/72; PULSE 79
[2023-08-27 13:37] LABS: Glucose, Whole Blood 231 mg/dL (60-115)
== END 2023-08-27 14:10 | disposition home or self-care (01) ==
PROVIDERS: PCP Internal Medicine; Visit Provider Internal Medicine Endocrinology, Diabetes & Metabolism
DX: E11.9 Type 2 diabetes mellitus without complications (principal); E78.5 Hyperlipidemia, unspecified
CPT/HCPCS: 99214

== ENCOUNTER → 2023-08-27 13:17 | Outpatient (BNVA) | payer OTHER, SELFPAY | PROVIDERS: PCP Internal Medicine; Visit Provider Internal Medicine Endocrinology, Diabetes & Metabolism | DX: E11.9 Type 2 diabetes mellitus without complications (principal); E78.5 Hyperlipidemia, unspecified | CPT/HCPCS: 82947; 83036; 99212 ==

== ENCOUNTER 2023-12-29 13:14 | Outpatient (AMB) | payer OTHER, SELFPAY ==
--- NOTE | 2023-12-29 13:19 | MHC.OFFVIS ---
Intake Vital Signs 12/29/23 13:22 Height 6 ft 2 in Weight 266 lb 8.622 oz BMI 34.2 BP 110/70 Blood Pressure Location Lt brachial Position Sitting Pulse 98 Pulse Source Pulse Oximeter Intake Visit Reasons: [id number] Intake Note: Patient present today to follow up on Type 2 Diabetes Mellitus. Patient receives DME supplies through: Pharmacy Last Diabetic Eye exam: 08/2023 Last Podiatry Visit: Doesn't have one. Random Glucose: 247 mg/dl HgA1C: 8.5% Flight Attendant/Inflight Manager Required: Yes Flight Attendant/Inflight Manager Language: Web Software Engineer Name: [facility] medical staff Information Interpreted: non-clinical & clinical Accompanied by: Self / Same As Patient Allergies oxycodone Allergy (Unknown, Verified 12/29/23 13:26) Unknown HPI HPI Comments History of Present Illness Details 48 YO M with PMHx T2DM ,HTN, HLD who is seen in F/U for T2DM. Patient last saw Dr. Perkins on 06/04/2023 He has renal agenesis and has a solitary kidney. Initially diagnosed with T2DM in 2003, which was diagnosed by his Muffle Worker. Was initially started on treatment with Metformin, but did not tolerate this due to GI distress. He also tried Invokana, but suffered from a penile infection and this was discontinued. He also tried Ozempic and Bydureon , and Januvia. These were discontinued as he failed therapy. Current prescribed a regimen of Mounjaro 5 mg Qwkly and Lantus 40 units qHS and Novolog 8-12 units AC. Not using the Naif. Glucometer download shows he is checking his point cares once a day. Average glucose is 196 with range 125-2 87. 42% range with 58% hyperglycemia no hypoglycemia Reports low sugars never . Has hypoglycemic awareness. Treats with juice, and checks sugar after to make sure its rising. Has eyes checked yearly. Last visit . Has Neuropathy, does not see podiatry. No Nephropathy, off Enalapril now due to hypotension. UAC 25.3 05/26/2023. Has HLD, on Atorvastatin 40 mg PO daily. LDL 169 05/26/2023.. He admits to noncompliance with the atorvastatin Denies CAD. Diet: Does not follow a particular diet. Has had CDE. Labs: Laboratory Tests 05/26/23 05/26/23 14:01 14:30 Creatinine 1.25 Estimated GFR > 60 LDL Cholesterol, C alc 169 TSH 1.46 Microalb/Creat Rat io 25.3 PFSH Medical History HLD (hyperlipidemia) HTN (hypertension) T2DM (type 2 diabetes mellitus) Vitamin D deficiency Surgical History Male circumcision Family History Father No problems noted. Mother No problems noted. Social History Alcohol intake: never Patient Tobacco Use Status: Never used Tobacco service: No Current occupational status: employed Physical Exam Vital Signs: Last Vital Signs Pulse 98 12/29/23 13:22 BP 110/70 12/29/23 13:22 BMI result Body Mass Index 34.2 Absence of Cushingoid features. Absence of acromegalic features. Neck exam reveals nl size thyroid about 15 gms. No thyroid nodules palpable. No carotid bruits present. Lungs CTA. Heart S1 S2, Reg R/R. No M/R/ G. Skin exam reveals absence of vitiligo or acanthosis nigricans. Abdominal exam reveals Soft NT/ND with NA BS. No organomegaly present. Neck Other: . Extrem Other: Visual exam of foot performed. No ulcerations or open lesions. No onchomycosis, no callouses.Pulses 2 + distally Sensation intact to monofilament exam. Vibratory sensation sensed is intact with 128 Hz tuning fork Results AMB Hemoglobin A1c AMB Hemoglobin A1c 8.5 % Last Edit by CHERRIE Jones on 12/29/23 13:44 Results Reviewed Results Reviewed: Laboratory Last Values Glucose (Clinic) 247 mg/dL (60-115) H 12/29/23 13:28 Hgb A1c (Clinic) 8.5 % (4.0-6.0) H 12/29/23 13:42 Assessment & Plan Assessment & Plan (1) T2DM (type 2 diabetes mellitus): Code(s): E11.9 - Type 2 diabetes mellitus without complications Plan: This is a 48-year-old male with history of type 2 diabetes being treated with Mounjaro and basal-bolus insulin with glycemic control and known microvascular complications namely neuropathy. Plan is to increase the Mounjaro to 7.5 mg Qwkly talk to patient about reinstituting a sensor either Naif There is not enough data to adjust the insulin regimen . Will also have patient follow up with consumer educator and see critical care nurse practitioner. (2) HLD (hyperlipidemia): Code(s): E78.5 - Hyperlipidemia, unspecified Qualifiers: Hyperlipidemia type: unspecified Qualified Code(s): E78.5 - Hyperlipidemia, unspecified Plan: Patient with high LDL cholesterol currently on atorvastatin 40 mg q.d. patient not compliant with atorvastatin. Plan is stressed compliance with the atorvastatin recheck lipid levels Orders: Orders AMB Hemoglobin A1c Today E11.9 - Type 2 diabetes mellitus without complications, Z13.9 - Encounter for screening, unspecified Medications: New tirzepatide (Mounjaro) 7.5 mg (0.5 mL) subcut QWEEK 2 mL 4RF Discontinued tirzepatide (Mounjaro) Discontinued Reason: Doctor's Order 5 mg (0.5 mL) subcut QWEEK 2 mL 4RF Coding Level of Care Code Est Pt Level 4 (28060) Diagnoses Type 2 diabetes mellitus with hyperglycemia, with long-term current use of insulin E11.9 Hyperlipidemia, unspecified hyperlipidemia type E78.5 Hyperlipidemia type: unspecified
[2023-12-29 13:22] VITALS: BP 110/70; PULSE 98; BMI 34.2
[2023-12-29 13:34] LABS: Glucose, Whole Blood 247 mg/dL (60-115)
== END 2023-12-29 13:49 | disposition home or self-care (01) ==
PROVIDERS: PCP Internal Medicine; Referring Provider Internal Medicine; Visit Provider Internal Medicine Endocrinology, Diabetes & Metabolism
DX: E11.9 Type 2 diabetes mellitus without complications (principal); E78.5 Hyperlipidemia, unspecified; Z13.9 Encounter for screening, unspecified
CPT/HCPCS: 99214

== ENCOUNTER → 2023-12-29 13:14 | Outpatient (BNVA) | payer OTHER, SELFPAY | PROVIDERS: PCP Internal Medicine; Referring Provider Internal Medicine; Visit Provider Internal Medicine Endocrinology, Diabetes & Metabolism | DX: E11.9 Type 2 diabetes mellitus without complications (principal); E78.5 Hyperlipidemia, unspecified; Z79.4 Long term (current) use of insulin | CPT/HCPCS: 82947; 83036; 99212 ==

== ENCOUNTER 2024-04-25 12:22 | Outpatient (REF) | payer OTHER, SELFPAY ==
[2024-04-25 14:20] LABS: MANUAL DIFF FLAG NO
[2024-04-25 14:29] LABS: Basophils Percent Auto 0.4 % (0-2); Eosinophils Absolute Auto 0.1 X10*3/uL (0.0-0.4); Eosinophils Percent Auto 1.7 % (0-4); Hematocrit 45.1 % (42.0-52.0); Hemoglobin 14.7 g/dl (14.0-18.0); Imm Gran Abs Auto 0.02 X10*3/uL (0.00-0.03); Imm Gran Pct Auto 0.4 % (0.0-0.4); Lymphocytes Absolute Auto 1.6 X10*3/uL (1.2-4.9); Lymphocytes Percent Auto 35.1 % (20-40); Mean Corpuscular HGB Conc 32.6 g/dl (31.0-36.0); Mean Corpuscular Hemoglobin 28.2 pg (27.0-33.0); Mean Corpuscular Volume 86.6 fL (80.0-98.0); Mean Platelet Volume 10.3 fL (9.4-12.4); Monocytes Absolute Auto 0.3 X10*3/uL (0.1-1.2); Monocytes Percent Auto 7.4 % (2-11); Neutrophils Absolute Auto 2.5 x10*3/uL (2.0-8.3); Platelet Count 244 X10*3/uL (160-400); Red Blood Count 5.21 X10*6/uL (4.60-5.80); Red Cell Distribution Width 13.5 % (11.0-16.0); White Blood Count 4.6 X10*3/uL (4.8-10.8)
[2024-04-25 15:01] LABS: Alanine Aminotransferase 17 U/L (0-40); Albumin Level 4.4 g/dL (3.5-5.0); Alkaline Phosphatase 97 U/L (39-117); Anion Gap 12 (12-20); Aspartate Amino Transferase 17 U/L (5-37); Bilirubin Total 0.5 mg/dL (0.0-1.0); Blood Urea Nitrogen 25 mg/dL (9-16); Calcium 9.7 mg/dL (8.4-10.2); Carbon Dioxide 25 mmol/L (22-29); Chloride 104 mmol/L (96-108); Cholesterol 208 mg/dL (<200); Estimated Glomerular Filt Rate > 60; Glucose Random 185 mg/dL (60-115); HDL Cholesterol 43 mg/dL (>40); Iron 85 mcg/dL (45-160); LDL Cholesterol Calculated 145 mg/dL (<100); Percent Iron Saturation 32 % (15-50); Sodium 137 mmol/L (135-145); Total Iron Binding Capacity 265 mcg/dL (228-428); Total Protein 8.2 g/dL (6.5-8.0); Triglycerides 104 mg/dL (<150); Unsaturated Iron Binding 180 ug/dL
[2024-04-25 15:10] LABS: TSH reflex Free T4 0.68 uIU/mL (0.32-4.0)
[2024-04-25 15:32] LABS: Folate 7.1 ng/mL (> or = 4.0); Vitamin B12 189 pg/mL (200-900)
== END 2024-04-25 12:23 | disposition home or self-care (01) ==
LOC: HO.CHCLDS 12:22
PROVIDERS: Visit Provider Internal Medicine
DX: E11.22 Type 2 diabetes mellitus with diabetic chronic kidney disease (principal); N18.32 Chronic kidney disease, stage 3b; Z79.4 Long term (current) use of insulin
CPT/HCPCS: 36415; 80053; 80061; 82607; 82746; 83540; 84443; 85025

== ENCOUNTER 2024-04-27 13:45 | Outpatient (REF) | payer OTHER, SELFPAY ==
--- NOTE | ~2024-04-27 | XR_ITS ---
EXAMINATION: XR CHEST CLINICAL INFORMATION: Chronic shortness of breath COMPARISON: Chest radiograph 03/08/2022. TECHNIQUE: 2 views of the chest were obtained. FINDINGS: Clear lungs. No pleural effusion or pneumothorax. Cardiomediastinal silhouette is unchanged. XR/XR chest 2V IMPRESSION: No acute cardiopulmonary abnormality.
[2024-04-27 15:56] LABS: D Dimer High Sensitivity < 150 NG/ML
== END 2024-04-27 13:46 | disposition home or self-care (01) ==
LOC: HO.LAB 13:45
PROVIDERS: PCP Internal Medicine; Visit Provider Internal Medicine
DX: E11.65 Type 2 diabetes mellitus with hyperglycemia (principal); R06.02 Shortness of breath; E78.5 Hyperlipidemia, unspecified; I10 Essential (primary) hypertension; Z79.4 Long term (current) use of insulin
CPT/HCPCS: 36415; 71046; 82947; 85379; 99212

== ENCOUNTER 2024-04-27 13:45 | Outpatient (AMB) | payer OTHER, SELFPAY ==
--- NOTE | 2024-04-27 13:50 | A.OFFVIS_ITS ---
Vital Signs 04/27/24 13:52 Height 6 ft 2 in Weight 262 lb 5.601 oz BMI 33.7 BP 130/80 Blood Pressure Location Rt brachial Position Sitting Pulse 95 Pulse Source Pulse Oximeter Intake Visit Reasons: [id number] Intake Note: Patient present today to follow up on Type 2 Diabetes Mellitus. Last seen by Dr. Stovall on 12/29/2023. Patient receives DME supplies through: Pharmacy Last Diabetic Eye exam: 02/2024 Last Podiatry Visit: Does not see a Social Work Manager Random Glucose: 185 mg/dl HgA1C: 7.8% 04/25/2024 PCP Telemarketing Representative Required: Yes Telemarketing Representative Language: Georgian Accompanied by: Self / Same As Patient Allergies oxycodone Allergy (Unknown, Verified 04/27/24 13:52) Unknown HPI Comments Details: 49 YO M with PMHx T2DM ,HTN, HLD, solitary kidney who is seen in F/U for T2DM- diagnosed 2003. Last seen by Dr Stovall a few months ago He has renal agenesis and has a solitary kidney. Current prescribed a regimen of Mounjaro 10 mg Qwkly, Lantus 40 units qHS and Novolog 8-12 units AC. He stopped taking all insulin and has started a diet. He has lost ~30 pounds per patient, 4-5 since last visit. Intolerant of metformin in the past. . He also tried Invokana, but suffered from a penile infection and this was discontinued. He also tried Ozempic and Bydureon , and Januvia. These were discontinued as he failed therapy. He notes shortness of breath which he believes to have coincided with the increase in Mounjaro from 7.5% to 10%-this was a few months ago. Denies wheezing. Infrequent cough. Endorses globus but is set up to see GI by [facility]. Using Freestyle Naif 2+. A1C at PCP two days ago (04/25) 6.5%. Glucometer download 97% use-very high 5%, high 46%, target 49%, 0% low, GMI 7.7, average glucose 184 Reports no interval hypoglycemia Has hypoglycemic awareness. Treats with juice, and checks sugar after to make sure its rising. Complications: neuropathy, retinopathy. no longer seeing podiatry. Ophtho ~2 months ago. No Nephropathy,on/off Enalapril sometimes soft BP and symptomatic. ROS see HPI PHYSICAL EXAM: GENERAL: Alert and oriented x 3. NAD EYES: EOMI. Anicteric. HENT: Moist mucous membranes. No scleral icterus. No cervical lymphadenopathy. LUNGS: Decreased airflow right posterior lung CARDIOVASCULAR: Regular rate and rhythm. No murmur. No JVD. ABDOMEN: Soft, non-tender +bs EXTREMITIES: No pitting edema. Left slightly larger than right. Non-tender. Visual exam of foot performed. No ulcerations or open lesions. Pulses 2 + distally Sensation intact to monofilament exam. Vibratory sensation sensed int act SKIN: No rashes or lesions. Warm. NEUROLOGIC: No focal neurological deficits. CN II-XII grossly intact PSYCHIATRIC: Cooperative. Appropriate mood and affect [facility] Medical History (Updated 04/27/24 @ 14:48 by Lorene Bal MD) Vitamin D deficiency HLD (hyperlipidemia) HTN (hypertension) T2DM (type 2 diabetes mellitus) Surgical History (Updated 04/27/24 @ 13:58 by CHERRIE Chapman) History of carpal tunnel surgery Male circumcision Family History Father No problems noted. Mother No problems noted. Social History Alcohol intake: never Patient Tobacco Use Status: Never used Tobacco service: No Current occupational status: employed Assessment & Plan Assessment & Plan (1) T2DM (type 2 diabetes mellitus): Code(s): E11.9 - Type 2 diabetes mellitus without complications Category: Medical Qualifiers: Diabetes mellitus termite exterminator insulin use: with long-term use Diabetes mellitus complication status: with hyperglycemia Qualified Code(s): E11.65 - Type 2 diabetes mellitus with hyperglycemia; Z79.4 - terminal gauger supervisor (current) use of insulin Plan: Supoptimal but improved glycemic control Stopped his insulin for quite some time Will change mounjaro back to 7.5 though suspect the increase to 10 is unrelated to his shortness of breath. He saw his pcp mon. Will do cxr and ddimer and refer back start actos 30mg daily (2) Long-term insulin use: Code(s): Z79.4 - snf (current) use of insulin Category: Medical Plan: Currently off (3) Shortness of breath: Code(s): R06.02 - Shortness of breath Category: Medical Plan: cxr, ddimer ordered Plan 3 month return Orders: Orders D Dimer High Sensitivity Today E78.5 - Hyperlipidemia, unspecified, I10 - Essential (primary) hypertension, R06.02 - Shortness of breath XR chest 2V Today R06.02 - Shortness of breath Medications: New pioglitazone (Actos) 30 mg PO DAILY 90 days 90 tabs 3RF tirzepatide (Mounjaro) 7.5 mg (0.5 mL) subcut QWEEK 6 mL 3RF Discontinued insulin glargine (Lantus Solostar U-100 Insulin) Discontinued Reason: Entered in error 40 units (0.4 mL) subcut BEDTIME 30 days 12 mL 11RF E11.9 - Type 2 diabetes mellitus without complications insulin aspart U-100 (Novolog FlexPen U-100 Insulin aspart) Discontinued Reason: Duplicate 8 units (0.08 mL) subcut TID 30 days 7.2 mL 7RF E11.9 - Type 2 diabetes mellitus without complications tirzepatide (Mounjaro) Discontinued Reason: Doctor's Order 10 mg (0.5 mL) subcut QWEEK 2 mL 4RF Coding Level of Care Code Est Pt Level 5 (84304) Diagnoses Type 2 diabetes mellitus with hyperglycemia, with long-term current use of insulin E11.65; Z79.4 Diabetes mellitus long-term insulin use: with termite exterminator use Diabetes mellitus complication status: with hyperglycemia Long-term insulin use Z79.4 Shortness of breath R06.02 Time Spent (min) 49
[2024-04-27 13:52] VITALS: BP 130/80; PULSE 95; BMI 33.7
[2024-04-27 14:12] LABS: Glucose, Whole Blood 185 mg/dL (60-115)
== END 2024-04-27 14:29 | disposition home or self-care (01) ==
PROVIDERS: PCP Internal Medicine; Visit Provider Internal Medicine
DX: E11.65 Type 2 diabetes mellitus with hyperglycemia (principal); Z79.4 Long term (current) use of insulin; R06.02 Shortness of breath
CPT/HCPCS: 99215

== ENCOUNTER 2024-07-28 12:51 | Outpatient (AMB) | payer OTHER, SELFPAY ==
--- NOTE | 2024-07-28 13:02 | A.OFFVIS_ITS ---
Vital Signs 07/28/24 13:04 Height 6 ft 2 in Weight 268 lb 15.423 oz BMI 34.5 BP 124/78 Blood Pressure Location Rt brachial Pulse 85 Pulse Source Pulse Oximeter Intake Visit Reasons: DM Intake Note: Patient present today to follow up on Type 2 Diabetes Mellitus. Patient receives DME supplies through: Pharmacy Last Diabetic Eye exam: 02/2024 Last Podiatry Visit: Does not see a Table Tender Most Recent HgA1C: 7.4%, 07/28/2024 Random Glucose: 248mg/dL, Today Lifestyle Consultant Required: Yes Lifestyle Consultant Language: Commercial Real Estate Agent Services: Lifestyle Consultant Present Lifestyle Consultant Name: CHERRIE Chapman/LIZ ODONNELL Accompanied by: Self / Same As Patient Allergies oxycodone Allergy (Unknown, Verified 04/27/24 13:52) Unknown HPI Comments Details: 49 YO M who is seen in F/U for [id number] 2003 Med history: renal agenesis and has a solitary kidney, HTN, HLD Current prescribed a regimen of Mounjaro 7.5 (decreased from 10 mg Qwkly), actos 30mg daily. Taking the actos only ~4 times per week he has skipped it some days when he thinks his blood glucose is low. Off Lantus 40 units qHS and Novolog 8- 12 units AC. He stopped taking all insulin and has started a diet. He has lost ~30 pounds per patient, 4-5 since last visit. Intolerant of metformin in the past. . He also tried Invokana, but suffered from a penile infection and this was discontinued. He also tried Ozempic and Bydureon , and Januvia. These were discontinued as he failed therapy. Using Freestyle Naif 2+. POC A1C today 7.4%. Naif download reviewed GMI 6.8% active 95%-16% high, 85% target, 0% low. There are two lows -54 and 65. Has hypoglycemic awareness. Treats with juice, and checks sugar after to make sure its rising. Complications: neuropathy, retinopathy. no longer seeing podiatry. Ophtho ~3 months ago. No Nephropathy,on/off Enalapril sometimes soft BP and symptomatic. ROS see HPI PHYSICAL EXAM: GENERAL: Alert and oriented x 3. NAD EYES: EOMI. Anicteric. HENT: Moist mucous membranes. No scleral icterus. No cervical lymphadenopathy. LUNGS: Decreased airflow right posterior lung CARDIOVASCULAR: Regular rate and rhythm. No murmur. No JVD. ABDOMEN: Soft, non-tender +bs EXTREMITIES: No pitting edema. SKIN: No rashes or lesions. Warm. NEUROLOGIC: No focal neurological deficits. CN II-XII grossly intact PSYCHIATRIC: Cooperative. Appropriate mood and affect [facility] Medical History Vitamin D deficiency HLD (hyperlipidemia) HTN (hypertension) T2DM (type 2 diabetes mellitus) Surgical History History of carpal tunnel surgery Male circumcision Family History Father No problems noted. Mother No problems noted. Social History Alcohol intake: never Patient Tobacco Use Status: Never used Tobacco service: No Current occupational status: employed Physical Exam Vital Signs: Last Vital Signs Pulse 85 07/28/24 13:04 BP 124/78 07/28/24 13:04 BMI result Body Mass Index 34.5 Results AMB Hemoglobin A1c AMB Hemoglobin A1c 7.4 % Last Edit by CHERRIE Chapman on 07/28/24 13:24 Results Reviewed Results Reviewed: Laboratory Last Values Glucose (Clinic) 248 mg/dL (60-115) H 07/28/24 13:10 Assessment & Plan Assessment & Plan (1) T2DM (type 2 diabetes mellitus): Code(s): E11.9 - Type 2 diabetes mellitus without complications Category: Medical Qualifiers: Diabetes mellitus terminal carman insulin use: with terminal carman use Diabetes mellitus complication status: with hyperglycemia Qualified Code(s): E11.65 - Type 2 diabetes mellitus with hyperglycemia; Z79.4 - penitentiary (current) use of insulin Plan: A1C slightly suboptimal, GMI at 6.8%-will decrease his actos to 15mg so he takes it more regularly and hopefully can avoid his infrequent hypoglycemia. He will continue dietary changes and return in 3 months. Orders: Orders AMB Hemoglobin A1c Today E11.65 - Type 2 diabetes mellitus with hyperglycemia, Z79.4 - penitentiary (current) use of insulin Medications: New pioglitazone (Actos) 15 mg PO DAILY 90 tabs 3RF Discontinued pioglitazone (Actos) Discontinued Reason: Doctor's Order 30 mg PO DAILY 90 days 90 tabs 3RF Coding Level of Care Code Est Pt Level 4 (10688) Diagnoses Type 2 diabetes mellitus with hyperglycemia, with long-term current use of insulin E11.65; Z79.4 Diabetes mellitus longterm insulin use: with terminal carman use Diabetes mellitus complication status: with hyperglycemia
[2024-07-28 13:04] VITALS: BP 124/78; PULSE 85; BMI 34.5
[2024-07-28 13:15] LABS: Glucose, Whole Blood 248 mg/dL (60-115)
== END 2024-07-28 13:22 | disposition home or self-care (01) ==
PROVIDERS: PCP Internal Medicine; Visit Provider Internal Medicine
DX: E11.65 Type 2 diabetes mellitus with hyperglycemia (principal); Z79.4 Long term (current) use of insulin

== ENCOUNTER → 2024-07-28 12:51 | Outpatient (BNVA) | payer OTHER, SELFPAY | PROVIDERS: PCP Internal Medicine; Visit Provider Internal Medicine | DX: E11.65 Type 2 diabetes mellitus with hyperglycemia (principal); Z79.4 Long term (current) use of insulin | CPT/HCPCS: 82947; 83036; 99212 ==

== ENCOUNTER 2024-11-03 12:56 | Outpatient (AMB) | payer OTHER, SELFPAY ==
[2024-11-03 13:04] VITALS: BP 120/80; PULSE 96; BMI 35.1
--- NOTE | 2024-11-03 13:04 | A.OFFVIS_ITS ---
Vital Signs 11/03/24 13:04 Height 6 ft 2 in Weight 273 lb 5.971 oz BMI 35.1 BP 120/80 Blood Pressure Location Rt brachial Position Sitting Pulse 96 Pulse Source Pulse Oximeter Intake Visit Reasons: DM/LVM Intake Note: Patient present today to follow up on Type 2 Diabetes Mellitus. 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 Off Lantus 40 units qHS and Novolog 8-12 units AC. He stopped taking all insulin and has started a diet. He has lost ~30 pounds per patient, 4-5 since last visit. Intolerant of metformin in the past. . He also tried Invokana, but suffered from a penile infection and this was discontinued. He also tried Ozempic and Bydureon , and Januvia. These were discontinued as he failed therapy. Using Freestyle Naif 2+. POC A1C today 8.4%. Naif download reviewed GMI 7.0% active 98%-21% high, 79% target, 0% low. Has hypoglycemic awareness. Treats with juice, and checks sugar after to make sure its rising. Complications: neuropathy, retinopathy. no longer seeing podiatry. Ophtho ~3 months ago. No Nephropathy,on/off Enalapril sometimes soft BP and symptomatic. ROS see HPI PHYSICAL EXAM: GENERAL: Alert and oriented x 3. NAD EYES: EOMI. Anicteric. HENT: Moist mucous membranes. No scleral icterus. No cervical lymphadenopathy. LUNGS: Decreased airflow right posterior lung CARDIOVASCULAR: Regular rate and rhythm. No murmur. No JVD. ABDOMEN: Soft, non-tender +bs EXTREMITIES: No pitting edema. SKIN: No rashes or lesions. Warm. NEUROLOGIC: No focal neurological deficits. CN II-XII grossly intact PSYCHIATRIC: Cooperative. Appropriate mood and affect [facility] Medical History Vitamin D deficiency HLD (hyperlipidemia) HTN (hypertension) T2DM (type 2 diabetes mellitus) Surgical History History of carpal tunnel surgery Male circumcision Family History Father No problems noted. Mother No problems noted. Social History Alcohol intake: never Patient Tobacco Use Status: Never used Tobacco service: No Current occupational status: employed Physical Exam Vital Signs: BMI result Body Mass Index 35.1 Results AMB Hemoglobin A1c AMB Hemoglobin A1c 8.4 % Last Edit by CHERRIE Chapman on 11/03/24 13:21 Assessment & Plan Assessment & Plan (1) T2DM (type 2 diabetes mellitus): Code(s): E11.9 - Type 2 diabetes mellitus without complications Category: Medical Qualifiers: Diabetes mellitus group home insulin use: with group home use Diabetes mellitus complication status: with hyperglycemia Qualified Code(s): E11.65 - Type 2 diabetes mellitus with hyperglycemia; Z79.4 - prison (current) use of insulin Plan: A1C is elevated-indiscretion over the holidays. CGM reflects that he has improved his diet As such will keep medication regimen the same. If he is having hyper or hypoglycemia he will call office He will follow up in 3 months for recheck (2) Long-term insulin use: Code(s): Z79.4 - paper handler (current) use of insulin Category: Medical Plan: see above Orders: Orders AMB Hemoglobin A1c Today E11.65 - Type 2 diabetes mellitus with hyperglycemia, Z79.4 - paper handler (current) use of insulin Medications: New diabetic supplies, miscellan. Diabetic shoes -1 pair continuous 1 ea 0RF E11.65 - Type 2 diabetes mellitus with hyperglycemia, G62.9 - Polyneuropathy, unspecified, Z79.4 - prison (current) use of insulin Coding Level of Care Code Est Pt Level 4 (12379) Diagnoses Type 2 diabetes mellitus with hyperglycemia, with long-term current use of insulin E11.65; Z79.4 Diabetes mellitus hotel houseman insulin use: with hotel houseman use Diabetes mellitus complication status: with hyperglycemia Long-term insulin use Z79.4
[2024-11-03 13:15] LABS: Glucose, Whole Blood 181 mg/dL (60-115)
== END 2024-11-03 13:23 | disposition home or self-care (01) ==
PROVIDERS: PCP Internal Medicine; Visit Provider Internal Medicine
DX: E11.65 Type 2 diabetes mellitus with hyperglycemia (principal); Z79.4 Long term (current) use of insulin

== ENCOUNTER → 2024-11-03 12:56 | Outpatient (BNVA) | payer OTHER, SELFPAY | PROVIDERS: PCP Internal Medicine; Visit Provider Internal Medicine | DX: E11.65 Type 2 diabetes mellitus with hyperglycemia (principal); Z79.4 Long term (current) use of insulin | CPT/HCPCS: 82947; 83036; 99212 ==

== ENCOUNTER 2025-02-01 13:34 | Outpatient (AMB) | payer OTHER, SELFPAY ==
--- NOTE | 2025-02-01 13:51 | A.OFFVIS_ITS ---
Vital Signs 02/01/25 13:52 Height 6 ft 1 in Weight 271 lb 2.697 oz BMI 35.8 BP 116/70 Blood Pressure Location Rt brachial Position Sitting Pulse 67 Pulse Source Pulse Oximeter Pulse Oximetry (%) 98 Oxygen Delivery Method Room Air Intake Visit Reasons: DM Intake Note: Patient present today to follow up on Type 2 Diabetes Mellitus. 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 Diabetic shoes -1 pair continuous enalapril maleate 5 mg PO DAILY flash glucose scanning reader (FreeStyle Naif 2 [place]) USE DIRECTED flash glucose sensor (FreeStyle Naif 2 Sensor kit) As directed changeevery 14 days FreeStyle Naif 2 Sensor (flash glucose sensor) USE DIRECTED NS FreeStyle Naif 3 Plus Sensor (blood-glucose sensor) every 14 days NS FreeStyle Naif 3 [place] (blood-glucose,civil engineer in training,cont) As directed NS hydroxyzine pamoate 50 mg PO TID lancets (TRUEplus Lancets) As directed loratadine 10 mg PO DAILY methocarbamol 750 mg PO Q6H PRN omeprazole 40 mg PO QAM pen needle, diabetic (Unifine Pentips) USE FOUR TIMES DAILY DIRECTED pioglitazone (Actos) 15 mg PO DAILY tirzepatide (Mounjaro) 7.5 mg (0.5 mL) subcut QWEEK tizanidine 4 mg PO TID HPI Comments Details: 49 YO M who is seen in F/U for [id number] 2003 Med history: 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 Off Lantus 40 units qHS and Novolog 8-12 units AC. He stopped taking all insulin and has started a diet. He has lost ~30 pounds per patient, 4-5 since last visit. Intolerant of metformin in the past. . He also tried Invokana, but suffered from a penile infection and this was discontinued. He also tried Ozempic and Bydureon , and Januvia. These were discontinued as he failed therapy. Using [employer] Naif 2+. POC A1C today 7.5%, from 8.4%. Naif download reviewed GMI 7.0% active 98%-21% high, 79% target, 0% low. He feels hypoglycemia when BG drops below 100/110 which limits uptitratrion at the time being because he ends up skipping meds and snacking to control his symptoms Has hypoglycemic awareness. Treats with juice, and checks sugar after to make sure its rising. Complications: neuropathy, retinopathy. no longer seeing podiatry. Ophtho ~3 months ago. No Nephropathy,on/off Enalapril sometimes soft BP and symptomatic. ROS see HPI PHYSICAL EXAM: GENERAL: Alert and oriented x 3. NAD EYES: EOMI. Anicteric. HENT: Moist mucous membranes. No scleral icterus. No cervical lymphadenopathy. LUNGS: Decreased airflow right posterior lung CARDIOVASCULAR: Regular rate and rhythm. No murmur. No JVD. ABDOMEN: Soft, non-tender +bs EXTREMITIES: No pitting edema. SKIN: No rashes or lesions. Warm. NEUROLOGIC: No focal neurological deficits. CN II-XII grossly intact PSYCHIATRIC: Cooperative. Appropriate mood and affect [facility] Medical History Vitamin D deficiency HLD (hyperlipidemia) HTN (hypertension) T2DM (type 2 diabetes mellitus) Surgical History History of carpal tunnel surgery Male circumcision Family History Father No problems noted. Mother No problems noted. Social History Alcohol intake: never Patient Tobacco Use Status: Never used Tobacco service: No Current occupational status: employed Physical Exam Vital Signs: Last Vital Signs Pulse 67 02/01/25 13:52 BP 116/70 02/01/25 13:52 Pulse Ox 98 02/01/25 13:52 Oxygen Delivery Method Room Air 02/01/25 13:52 BMI result Body Mass Index 35.8 Results AMB Hemoglobin A1c AMB Hemoglobin A1c 7.5 % Last Edit by CHERRIE Chapman on 02/01/25 14:10 Results Reviewed Results Reviewed: Laboratory Last Values Glucose (Clinic) 148 mg/dL (60-115) H 02/01/25 13:57 Hgb A1c (Clinic) 7.5 % (4.0-6.0) H 02/01/25 14:10 Assessment & Plan Assessment & Plan (1) T2DM (type 2 diabetes mellitus): Code(s): E11.9 - Type 2 diabetes mellitus without complications Category: Medical Qualifiers: Diabetes mellitus complication status: with hyperglycemia Diabetes mellitus equipment operator intermodal yard insulin use: with nursing home use Qualified Code(s): E11.65 - Type 2 diabetes mellitus with hyperglycemia; Z79.4 - nursing home (current) use of insulin Plan: Improving glycemic control Continue current medications. He is hesitant to increase medications and I want to avoid him skipping medications again Hypoglycemia by rules of 15s Upcoming eye exam Return in 3 months or sooner as needed Orders: Orders Microalbumin, Random (w Creat) 3 Months E11.65 - Type 2 diabetes mellitus with hyperglycemia, Z79.4 - nursing home (current) use of insulin AMB Hemoglobin A1c Today E11.65 - Type 2 diabetes mellitus with hyperglycemia, Z79.4 - exterminator helper (current) use of insulin Comprehensive Met. Panel 3 Months E11.65 - Type 2 diabetes mellitus with hyperglycemia, Z79.4 - nursing home (current) use of insulin Hemoglobin A1c 3 Months E11.65 - Type 2 diabetes mellitus with hyperglycemia, Z79.4 - exterminator helper (current) use of insulin Lipid Panel 3 Months E11.65 - Type 2 diabetes mellitus with hyperglycemia, Z79.4 - exterminator helper (current) use of insulin Coding Level of Care Code Est Pt Level 4 (66160) Complex EM visit Add On G2211 Diagnoses Type 2 diabetes mellitus with hyperglycemia, with long-term current use of insulin E11.65; Z79.4 Diabetes mellitus complication status: with hyperglycemia Diabetes mellitus nursing home insulin use: with nursing home use
[2025-02-01 13:52] VITALS: BP 116/70; PULSE 67; O2SAT 98; BMI 35.8
[2025-02-01 14:02] LABS: Glucose, Whole Blood 148 mg/dL (60-115)
--- OUTSIDE RECORDS SUMMARY | 2025-02-01 15:43 | XMS_ITS | Clinical Summary ---
Author Organization [employer] Address [address] [place] [address] [address] [place] [address] Care Team Providers Care Gaming Dealer Name Role Phone Derick Ernst MD Primary Care Prov ider Allergies Active Allergy Reactions Criticality Noted Date Comments Oxycodone Unknown 08/05/2016 Other reaction(s): Altered Heart Rate Oxycodone-Acetaminophen 05/26/2023 Other reaction(s): difficulty breathing, chest pressure Medications * This document contains information received from the source organization and may not represent a complete record from that organization. Unifine Pentips 32G X 6 MM misc USE DIRECTED FOUR TIMES DAILY 3 Active omeprazole (PriLOSEC) [address] capsuleIndicatio ns:Gastroesophag eal reflux disease without esophagitis TAKE ONE CAPSULE EVERY MORNING BEFORE BREAKFAST 90 capsule 11 4 Active TRUEplus Lancets 33G miscIndications: Type 2 diabetes mellitus with stage 3b chronic kidney disease, with long-term current use of insulin ([facility]) TEST BLOOD SUGAR FOUR TIMES DAILY 100 each 11 4 Active enalapril (Vasotec) 5 MG tablet Take 1 tablet (5 mg) by mouth Once per day. 90 tablet 3 4 02/15/20 25 Active aspirin (Aspirin Low Dose) 81 MG EC tablet Take 1 tablet (81 mg) by mouth Once per day. 90 tablet 3 4 02/15/20 25 Active hydrOXYzine pamoate (Vistaril) 50 MG capsuleIndicatio ns:Anxiety TAKE ONE CAPSULE THREE TIMES DAILY 90 capsule 11 4 Active atorvastatin (Lipitor) 40 MG tablet Take 1 tablet by mouth Once per day. 2 Active Continuous Glucose Sensor (FreeStyle Naif 2 Sensor) mis Apply 1 each topically every 14 (fourteen) days. 4 Active Mounjaro 10 MG/0.5ML solution pen-injector Inject 7.5 mg under the skin 1 (one) time per week. 4 Active Blood Pressure kit 1 kit Once per day. 1 kit 4 Active cetirizine (ZyrTEC) 10 MG tabletIndication s:Atopic dermatitis, unspecified TAKE ONE TABLET DAILY 30 tablet 3 4 Active glucose blood (FREESTYLE LITE) test stripIndications :Type 2 diabetes mellitus with stage 3b chronic kidney disease, with long-term current use of insulin ([facility]) Glucose monitor 3 times a day 100 strip 11 5 Active methocarbamol (Robaxin) 750 MG tabletIndication s:Neck pain TAKE ONE TABLET FOUR TIMES DAILY 120 tablet 5 Active zolpidem (Ambien) 10 MG tablet Take 1 tablet (10 mg) by mouth if needed at bedtime for sleep. 30 tablet 5 Active lidocaine (Lidoderm) 5 % patch APPLY 1 PATCH TO SKIN. LEAVE ON FOR 12 HOURS, THEN OFF FOR 12 HOURS DIRECTED. 30 patch 1 5 Active tiZANidine (Zanaflex) 4 MG tablet TAKE ONE TABLET BY MOUTH EVERY SIX HOURS NEEDED 120 tablet 1 5 Active Active Problems Problem Noted Date Diagnosed Date Foot callus 11/09/2024 Assessment & Plan (11/09/2024 10:27 AM EST): Will refer to podiatry, no open skin Glaucoma 02/19/2024 Class 2 obesity 02/19/2024 Obesity 02/19/2024 Hypertension 02/19/2024 Other sleep apnea 02/19/2024 Assessment & Plan (02/19/2024 11:17 AM EDT): Stop bang score 4 points, will refer for sleep study test Arthralgia of left knee 09/06/2023 Esophageal dysphagia 01/20/2023 Assessment & Plan (01/20/2023 5:25 PM EDT): Complains of chronic dysphagia to solids and liquids, will refer to GI for evaluation Primary insomnia 01/20/2023 Assessment & Plan (11/09/2024 10:23 AM EST): Has tried trazodone and melatonin without imprvement in symptoms, will start on ambien, call back if not improving Assessment & Plan (01/20/2023 5:24 PM EDT): Will order trazodone 50mg, lifestyle modification discussed Type 2 diabetes mellitus wit h chronic kidney disease, with long-term current use of insulin 10/16/2022 Assessment & Plan (10/10/2024 12:57 PM EST): Followed by endocrinology, continue low carb/no sugar diet, he is on mounjaro that was recently decreased to 7.5mg, and actos which was decreased to 15mg, no reported episode of hypoglycemia, target A1c <7.0% Assessment & Plan (02/19/2024 11:18 AM EDT): Followed by endocrinology, changed from ozempic to mounjaro currently 10mg, has lost over 40lbs, continue low carb/no sugar diet, exercise as tolerated Assessment & Plan (03/19/2023 2:21 PM EDT): Followed by endocrinology, had to cancel appointment due to recent travel, told to reschedule, reinforced low carb/no sugar diet Eye exam Due, patient will call to schedule appointment. Assessment & Plan (01/20/2023 5:26 PM EDT): Followed by endocrinology, a1c today was 8.2%, reinforced low carb/no sugar diet and exercise as tolerated Eye exam done on 02/14 Assessment & Plan (10/16/2022 3:13 PM EST): Patient followed by endocrinology, currently on ozempic, lantus 60 unit and aspart 7 units tid, refers he got blood work done on 09/26/22, and has upcoming follow up with specialist. Eye exam done in 01/2022 Primary hypertension 10/16/2022 Assessment & Plan (11/09/2024 10:24 AM EST): Controlled, no changes will be made, continue low sodium diet and exercise as tolerated Assessment & Plan (10/10/2024 12:50 PM EST): On enalapril, keep low sodium diet and exercise as tolerated, continue bp monitoring, target <130/80 Assessment & Plan (03/19/2023 2:19 PM EDT): Patient not monitoring his blood pressure, told target <130/80, reinforced low sodium diet and exercise as tolerated. Assessment & Plan (01/20/2023 5:25 PM EDT): Controlled, followed by nephrology, no changes will be made, low sodium diet reinfoced and exercise as tolerated Assessment & Plan (10/16/2022 3:14 PM EST): Controlled on enalapril, reinforced low sodium diet and exercise as tolerated, following chute tapper Neck pain 10/16/2022 Assessment & Plan (10/16/2022 3:17 PM EST): Chronic neck pain, refers tizadinine helps mildly but make him feel drowsy, will switch to methocarbamol, he is also requesting a referal for [facility] sport with Dr Robbie Posadas which will be placed. Hyperlipidemia 04/11/2022 Chronic back pain 06/25/2018 Hyperlipidemia due to type 2 diabetes mellitus ( [facility]) 06/25/2018 Parkinsonian tremor 06/25/2018 Renal agenesis 06/25/2018 Gastroesophageal reflux disease 06/25/2018 Type 2 diabetes mellitus 06/25/2018 Glaucoma of both eyes 01/16/2017 Encounters * This document contains information received from the source organization and may not represent a complete record from that organization. Date Type Department Care Team Description 02/01/2025 Orders Only GENERIC EXTERNAL DATA DEPARTMENT Provider, Generic External Data 12/30/2024 Refill [facility] [address] [place] [address] Virginia Romero MD 12/30/2024 Refill [facility] [address] [place] [address] Derick Ernst MD 12/08/2024 Telephone [facility] [address] [place] [address] Derick Ernst MD Referral 12/06/2024 Refill [facility] [address] [place] [address] Derick Ernst MD 12/05/2024 Refill [facility] [address] [place] [address] Soheila Rubio MD Neck pain 11/09/2024 Telephone [facility] [address] [place] [address] Derick Ernst MD 11/09/2024 Telephone [facility] [address] [place] [address] Derick Ernst MD Durable Medical Equipment 11/09/2024 Orders Only [facility] [address] [place] [address] Derick Ernst MD Type 2 diabetes mellitus with stage 3b chronic kidney disease, with long-term current use of insulin ([facility]) 11/08/2024 3:45 PM EST Office Visit [facility] [address] [place] [address] Derick Ernst MD Primary insomnia (Primary Dx); Dietary counseling; Exercise counseling; Type 2 diabetes mellitus with stage 3b chronic kidney disease, with long-term current use of insulin ([facility]); Primary hypertension; Foot callus 11/08/2024 Travel 11/03/2024 Orders Only GENERIC EXTERNAL DATA DEPARTMENT Provider, Generic External Data from Last 3 Months Immunizations Name Administration Dates Next Due Hep B, adult 03/04/2024(Deferred: Patient Refused - declined 03/01/24) Influenza injectable quadriv alent IIV4 with preservative 07/21/2016 Influenza injectable quadriv alent preservative free 08/14/2017 Pfizer Covid-19 Vaccine 12+ 03/04/2024(D eferred: Patient Refused - Declined 03/01/24) Pneumococcal Conjugate PCV 20 03/04/2024 (Deferred: Patient Refused - Declined 03/01/24) Pneumococcal Polysaccharide PPSV23 11/12/2016 Tdap 10/27/2014 Social History Tobacco Use Types Packs/Day Years Used Date Smoking Tobacco: Former Cigarettes 1 15 0 02/23/1985 - 02/24/2000 Passive Smoke Exposure: Past Smokeless Tobacco: Former Tobacco Cessation:Counseling Given: Not Answered Alcohol Use Standard Drinks/Week Comments Never 0 (1 standard drink = 0.6 oz pur e alcohol) Depression Answer Date Recorded Patient Health Questionnaire-9 Score 2 10/10/2024 Patient Health Questionnaire-9 Score 2 10/10/2024 Last PHQ-9: Questionnaire Data Not on file 1 12/11/2023 Housing Stability Answer Date Recorded What is your housing situation today? I have chu jackson 08/27/[address] you li ve. Do you have problems with any of the following? None of the above 08/27/2023 Food Insecurity Answer Date Recorded Within the past 12 months, y ou worried that your food would run out before you got money to buy more: Never True 08/27/2023 Within the past 12 months,th e food you bought just didn't last and you didn't have enough money to get more: Never True 11/2022 Transportation Answer Date Recorded In the past 12 months, has l ack of transportation kept you from medical appts, meetings, work or from getting things needed for daily living? No 08/27/2023 Utilities Answer Date Recorded In the past 12 months, has t he electric, gas, oil or water company threatened to shut off services in your home? No 08/27/2023 Depression Answer Date Recorded Patient Health Questionnaire-2 Score 2 10/10/2024 Sex and Gender Information Value Date Recorded Sex Assigned at Male 08/25/2022 10:30 AM EDT Legal Sex Male 10:30 AM EDT Gender Identity Male 08/25/2022 10:30 AM EDT Sexual Orientation Straight 08/25/2022 10 :30 AM EDT Last Filed Vital Signs Vital Sign Reading Time Taken Comments Blood Pressure 125/78 11/08/2024 3:44 PM EST Pulse 82 11/08/2024 3:44 PM EST Temperature 36.8 ??C (98.3 ??F) 11/08/2024 3:44 PM ES T Respiratory Rate 14 11/08/2024 3:44 PM EST Oxygen Saturation 98% 11/08/2024 3:44 PM EST Inhaled Oxygen Concentration - - Weight 121 kg (267 lb) 11/08/2024 3:44 PM EST Height 188 cm (6' 2 ) 11/08/2024 3:44 PM EST Body Mass Index 34.28 11/08/2024 3:44 PM EST Plan of Treatment Upcoming Encounters Date Type Department Care Team (Late st Contact Info) Description 02/02/2025 3:30 PM EDT Telemedicine [facility] [address] [place] [address] Derick Ernst MD [address] [place] [address] Health Maintenance Due Date Last Done Comments CT Colonography 1975 FIT DNA/Cologuard 1975 FIT 1975 FOBT 1975 Sigmoidoscopy 1975 Eye Exam 1985 Alcohol/Substance Use Screening 1987 Family Planning (PISQ) 1990 Pneumococcal Vaccine: 50+ Years (2 of 2 - PCV) 11/12/2017 11/12/2016 SDOH Screening 03/19/2024 03/19/2023 Influenza Vaccine (#1) 2024 08/14/2017, 2015 DTaP/Tdap/Td Vaccines (2 - Td or Tdap) 10/27/2024 10/27/2014 Zoster Vaccines (1 of 2) 2025 Diabetes: Hemoglobin A1C 02/06/2025 025, 04/25/2024, 05/26/2023, Additional history exists Lipid Panel 04/25/2025 04/25/2024, 08/0 10/2022, 03/13/2022, Additional history exists Tobacco Screening 04/25/2025 04/25/2024 Depression Screening 10/10/2025 10/10/2024, 10/10/20 24 Diabetes: Foot Exam 11/08/2025 11/08/2024, 11/08/2024, 11/08/2024, Additional history exists Colonoscopy 09/06/2031 09/06/2021 Colorectal Cancer Screening 09/06/2031 RSV Patients and Patients Aged 60 years or older (1 - 1-dose 75+ series) 2050 COVID-19 Vaccine Discontinued 03/22/2021, 03/01/2021 HIV Screening Completed 01/09/2022 Hepatitis C Screening Completed 05/26/2023, 022 HIB Vaccines Aged Out No longer eligi ble based on patient's age to complete this topic HPV Vaccines Aged Out No longer eligi ble based on patient's age to complete this topic Hepatitis A Vaccines Aged Out No long er eligible based on patient's age to complete this topic Hepatitis B Vaccines Discontinued IPV Vaccines Aged Out No longer eligi ble based on patient's age to complete this topic Meningococcal Vaccine Aged Out No leobardo álvaro eligible based on patient's age to complete this topic RSV under 20 months Aged Out No longe r eligible based on patient's age to complete this topic Rotavirus Vaccines Aged Out No longer eligible based on patient's age to complete this topic Goals Goal Patient Goal Type Associated Problems Recent Progress Patient-Stated? Author Hemoglobin A1c < 7 Result Component 7.8(11/08/2024 3:47 PM EST) No Tierney Holguin, ZhouD Procedures Procedure Name Priority Date/Time Associated Diagnosis Comments GLUCOSE, WHOLE BLOOD Routine 02/01/2025 1:57 PM EDT POCT GLYCATED HEMOGLOBIN, TOTAL Routine 11/08/2024 3:47 PM EST Type 2 diabetes mellitus with stage 3b chronic kidney disease, with long-term current use of insulin ([facility]) POCT GLUCOSE Routine 11/08/2024 3:46 PM EST Type 2 diabetes mellitus with stage 3b chronic kidney disease, with long-term current use of insulin ([facility]) GLUCOSE, WHOLE BLOOD Routine 11/03/2024 1:10 PM EST LIPID PANEL, STANDARD Routine 04/25/2024 12:25 PM EDT Type 2 diabetes mellitus with stage 3b chronic kidney disease, with long-term current use of insulin (CMS/HCC) HEPATITIS C ANTIBODY REFLEX Routine 05/26/2023 2:01 PM EDT HIV 1/2 ANTIGEN/ANTIBODY, FOURTH GENERATION W/RFL Routine 01/09/2022 3:18 PM EDT HM COLONOSCOPY Routine 09/06/2021 7:12 AM EST from Last 3 Months or Most Recently Relevant to Health Maintenance Results * (ABNORMAL) Glucose, Whole Blood (02/01/2025 1:57 PM EDT) Only the most recent of2 resultswithin the time period is included. Glucose, Whole Blood 148(H) 60 - 115 mg/dL [facility] Comment:METER #: [id number] Testing performed in the Endocrinology Department [address], [address], [facility]. 02/01/2025 1:57 PM EDT 02/01/2025 2:01 PM EDT us Generic External Data Provider LAB BLOOD ORDERAB LES Final Result Performing Organization Address City/State/[facility] Co de Phone Number [facility] [address] [place] [address] [phone] * (ABNORMAL) POCT A1C (11/08/2024 3:47 PM EST) Hemoglobin A1C 7.8(A) 4.0 - 6.0 % QC Media Lot # Comment:[id number] Lot# Expiration Date Comment:05/26/2026 Blood 11/08/2024 3:47 PM EST us Derick Govea MD POINT OF CARE TEST ENTER/EDIT ORDERABLES Final Result * POCT glucose manually resulted (11/08/2024 3:46 PM EST) Glucose Blood, POC 154 60 - 200 mg/dL QC Media Lot # Comment:[id number] Lot# Expiration Date Comment:01/31/2025 Blood Capillary blood specimen / Unknown 11/08/2024 3:46 PM EST Derick Govea MD POINT OF CARE TEST ENTER/EDIT ORDERABLES Final Result * (ABNORMAL) Lipid Panel, Standard (04/25/2024 12:25 PM EDT) Triglycerides 104 <150 mg/dL [facility] Comment:Desirable Triglyceri de: less than 150 mg/dLBorderline High Triglyceride 150-199 mg/dLHigh Triglyceride: 200-499 mg/dLVery High Triglyceride: greater than or equal to 5OO mg/dL Cholesterol 208(H) <200 mg/dL [facility] Comment:Desirable Cholestero l: less than 200 mg/dLBorderline High Cholesterol: 200-239 mg/dLHigh Cholesterol: greater than 239 mg/dL LDL Cholesterol Calculated 145(H) <100 mg/dL [facility] Comment:Desirable LDL: less than 100 mg/dLNear Optimal/Above Optimal LDL: 110- 129 mg/dLBorderline High LDL: 130-159 mg/dLHigh LDL: 160-189 mg/dLVery High LDL: greater than or equal to 190 mg/dL HDL Cholesterol 43 >40 mg/dL [facility] Comment:Desirable HDL: great er than 40 mg/dL Note: This HDL assay may give artificially low results in patients with liver disease. Blood Venous blood specimen / Unknown 04/25/2024 12:25 PM EDT 04/25/2024 2:16 PM EDT Derick Govea MD LAB BLOOD ORDERABL ES Final Result [facility] [address] [place] [phone] * Hepatitis C Antibody Reflex (05/26/2023 2:01 PM EDT) Hepatitis C Antibody Nonreactive Nonreactive [facility] Comment:Antibodies to HCV no t detected; does not exclude early acuteHCV infection. 05/26/2023 2:01 PM EDT 05/26/2023 5:35 PM EDT Derick Govea MD LAB BLOOD ORDERABL ES Final Result [facility] [address] [place] [phone] * HIV 1/2 ANTIGEN/ANTIBODY,FOURTH GENERATION W/RFL (01/09/2022 3:18 PM EDT) HIV-1/2 ANTIGEN AND ANTIBODIES, 4TH GENERATION W/ REFLEX NON-REACT DEBORAH NON-REACT DEBORAH [facility] Comment: HIV-1 antigen and HIV-1/HIV-2 antibodies were not detected. There is no laboratory evidence of HIV infection. ?? PLEASE NOTE: This information has been disclosed to you from records whose confidentiality may be protected by state law. ??If your state requires such protection, then the state law prohibits you from making any further disclosure of the information without the specific written consent of the person to whom it pertains, or as otherwise permitted by law. A general authorization for the release of medical or other information is NOT sufficient for this purpose. ? For additional information please refer to http://education.StandDesk.EarlyDoc/faq/XNS744 (This link is being provided for informational/ educational purposes only.) ? The performance of this assay has not been clinically validated in patients less than 2 years old. ?? 01/09/2022 3:18 PM EDT Derick Govea MD LAB BLOOD ORDERABL ES Final Result [facility] [address] [place] [address], * Hm Colonoscopy (09/06/2021 7:12 AM EST) us Historical Provider HEALTH MAINTENANCE Final Result from Last 3 Months or Most Recently Relevant to Health Maintenance Insurance - [employer] Care Teams Gaming Dealer Relationship Specialty Start Date End Date Derick Ernst MD [address] [place] [phone] PCP - General Internal Medicine 03/25/20
--- OUTSIDE RECORDS SUMMARY | 2025-02-01 15:43 | XMS_ITS | Clinical Summary ---
Author Organization [facility] Address [address] [place] [address] Phone Care Team Providers Care Senior Director Finance Name Role Phone Derick Ernst Primary Care Provide r Medical History Medical History Date Comments Esophageal reflux DX:Esophageal reflux Diabetes mellitus type 2, co ntrolled, with complications (CMS/HCC) DX:Diabetes mellitus type 2, controlled, with complications (HCC) Essential hypertension DX:Essent ial hypertension Hyperlipidemia DX:Hyperlipidemi a Social History Tobacco Use Types Packs/Day Years Used Date Smoking Tobacco: Never Smokeless Tobacco: Never Alcohol Use Standard Drinks/Week Comments Never 0 (1 standard drink = 0.6 oz pur e alcohol) Sex and Gender Information Value Date Recorded Sex Assigned at Not on file Legal Sex Male 11:25 PM EST Gender Identity Not on file Sexual Orientation Not on file Obstetrics History Last Filed Vital Signs Vital Sign Reading Time Taken Comments Blood Pressure - - Pulse - - Temperature - - Respiratory Rate - - Oxygen Saturation - - Inhaled Oxygen Concentration - - Weight 128 kg (282 lb) 08/08/2022 11:54 AM EDT Height 188 cm (6' 2 ) 08/08/2022 11:54 AM EDT Body Mass Index 36.21 08/08/2022 11:54 AM EDT Plan of Treatment Upcoming Encounters Date Type Department Care Team (Late st Contact Info) Description 03/15/2025 2:45 PM EDT Consult Orthopedic Surgery [place] [id number] [phone] Jamari Cadet, DPM [address] [address] Health Maintenance Due Date Last Done Comments Diabetes: Annual GFR (Glomer ular Filtration Rate) 1975 Diabetes: Annual Foot Exam 1985 Diabetes: Annual Retina Eye Exam 1985 DTaP,Tdap,and Td Vaccines (1 - Tdap) 1994 Hepatitis B Vaccines (1 of 3 - 19+ 3-dose series) 1994 Pneumococcal Vaccine: 50+ Ye ars (1 of 2 - PCV) 1994 Pneumococcal Vaccine: Pediat rics (0 to 5 Years) and At-Risk Patients (6 to 64 Years) (1 of 2 - PCV) 1994 Cholesterol Screening (Lipid Panel) 09/28/2022 Colorectal Cancer Screening: Colonoscopy 09/28/2022 Depression Screening 09/28/2022 HIV Screening 09/28/2022 Hepatitis C Screening 09/28/2022 Medicare Annual Wellness Visit 09/28/2022 Social Influencers of Health Screening 09/28/2022 Diabetes: Annual Urine Albumin-Creatinine Ratio (uACR) 10/11/2022 Diabetes: Blood Sugar Contro l Test (HGBA1C) 10/11/2022 COVID-19 Vaccine ( - 2023-2 5 season) 2024 Influenza Vaccine (#1) 2024 Zoster Vaccines (1 of 2) 2025 HIB Vaccines Aged Out No longer eligi ble based on patient's age to complete this topic HPV Vaccines Aged Out No longer eligi ble based on patient's age to complete this topic Hepatitis A Vaccines Aged Out No long er eligible based on patient's age to complete this topic IPV Vaccines Aged Out No longer eligi ble based on patient's age to complete this topic MMR Vaccines Aged Out No longer eligi ble based on patient's age to complete this topic Meningococcal ACWY Vaccine Aged Out N o longer eligible based on patient's age to complete this topic Meningococcal B Vaccine Aged Out No l onger eligible based on patient's age to complete this topic RSV Immunization Patients Un yelena 20 months Aged Out No longer eligible b ased on patient's age to complete this topic Varicella Vaccines Aged Out No longer eligible based on patient's age to complete this topic Insurance [facility] MEDICARE Member Subscriber Plan / Payer (Ef fective 2018-Present) Name:Yris Savagean Relation to Subscriber:Self Name:Yris Savagean Payer ID:[id number] Group ID:[id number] Type:Not on file Address: [place] [address] [place] [address] Care Teams Senior Director Finance Relationship Specialty Start Date End Date Derick Ernst [address] [place] [address] PCP - General Internal Medicine 01/04/25
--- OUTSIDE RECORDS SUMMARY | 2025-02-01 15:43 | XMS_ITS | Encounter Summary ---
Author Organization [facility], Address [address] [facility] [address] [place] [address] Phone Care Team Providers Care Public Address Servicer Name Role Phone Derick Cain Primary Care Provider + [phone] Encounter Details Date Type Department Care Team (Late st Contact Info) Description 02/27/2022 Documentation Only [facility], [address] [place] [address] Derick Cain [address] [place], [place] [phone] Social History Tobacco Use Types Packs/Day Years Used Date Smoking Tobacco: Never Assessed Sex and Gender Information Value Date Recorded Sex Assigned at Not on file Legal Sex Male 10:56 AM EDT Gender Identity Not on file Sexual Orientation Not on file documented as of this encounter Plan of Treatment Not on file documented as of this encounter Visit Diagnoses Not on filedocumented in this encounter Care Teams Public Address Servicer Relationship Specialty Start Date End Date Derick Cain PCP - General Internal Medicine 02/27/22 documented as of this encounter
--- OUTSIDE RECORDS SUMMARY | 2025-02-01 15:43 | XMS_ITS | Encounter Summary ---
Author Organization [employer] Address [address] [facility] 7t [place] [address] Care Team Providers Care Display Decorator Name Role Phone Derick Ernst MD Primary Care Prov ider Encounter Details Date Type Department Care Team (Late st Contact Info) Description 02/01/2025 Orders Only GENERIC EXTERNAL DATA DEPARTMENT Provider, Generic External Data Social History Tobacco Use Types Packs/Day Years Used Date Smoking Tobacco: Former Cigarettes 1 15 0 02/23/1985 - 02/24/2000 Passive Smoke Exposure: Past Smokeless Tobacco: Former Alcohol Use Standard Drinks/Week Comments Never 0 [...] Orientation Straight 08/25/2022 10 :30 AM EDT documented as of this encounter Plan of Treatment Upcoming Encounters Date Type Department Care Team (Late st Contact Info) Description 02/02/2025 3:30 PM EDT Telemedicine [facility] CHC MED & PEDS [address] [place], [place] [phone] Derick Ernst MD [address] [place] [address] documented as of this encounter Goals Goal Patient Goal Type Associated Problems Recent Progress Patient-Stated? Author Hemoglobin A1c < 7 Result Component 7.8(11/08/2024 3:47 PM EST) No Tierney Holguin, PharmD documented as of this encounter Procedures Procedure Name Priority Date/Time Associated Diagnosis Comments GLUCOSE, WHOLE BLOOD Routine 02/01/2025 1:57 PM EDT documented in this encounter Results * (ABNORMAL) Glucose, Whole Blood (02/01/2025 1:57 PM EDT) Glucose, Whole Blood 148(H) 60 - 115 mg/dL [facility] Comment:METER #: [id number] Testing performed in the Endocrinology Department [address] , [address], [facility]. 02/01/2025 1:57 PM EDT 02/01/2025 2:01 PM EDT us Generic External Data Provider LAB BLOOD ORDERAB LES Final Result [facility] [address] [place] [address] [phone] documented in this encounter Visit Diagnoses Not on filedocumented in this encounter Additional Health Concerns Assessment Noted Time PHQ-9 Depression Total Score: 2 10/10/20 24 11:10 AM EST documented as of this encounter Care Teams Display Decorator Relationship Specialty Start Date End Date Derick Ernst MD [address] [place] [phone] PCP - General Internal Medicine 03/25/20 documented as of this encounter
--- OUTSIDE RECORDS SUMMARY | 2025-02-01 15:43 | XMS_ITS | Clinical Summary ---
Author Organization [facility], Address [address] [place] [address] [place] [address] Phone Care Team Providers Care Revenue Agent Name Role Phone Derick Cain Primary Care Provider Allergies Active Allergy Reactions Criticality Noted Date Comments Oxycodone 04/11/2022 Medications atorvastatin (LIPITOR) 40 MG tablet Take 40 mg by mouth 1 (one) time each day 2 Active celecoxib (CeleBREX) 200 MG capsule Take 200 mg by mouth 1 (one) time each day 2 Active enalapril (VASOTEC) 5 MG tablet Take 5 mg by mouth 1 (one) time each day 2 Active hydrOXYzine (VISTARIL) 50 MG capsule Take 50 mg by mouth in the morning and 50 mg at noon and 50 mg in the evening. 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 Gastroesophageal reflux disease 04/11/2022 Social History Tobacco Use Types Packs/Day Years Used Date Smoking Tobacco: Former Alcohol Use Standard Drinks/Week Comments Never 0 (1 standard drink = 0.6 oz pur e alcohol) Sex and Gender Information Value Date Recorded Sex Assigned at Not on file Legal Sex Male 10:56 AM EDT Gender Identity Not on file Sexual Orientation Not on file Last Filed Vital Signs Vital Sign Reading Time Taken Comments Blood Pressure 140/82 05/05/2023 4:45 PM EDT Pulse 76 05/05/2023 4:45 PM EDT Temperature - - Respiratory Rate - - Oxygen Saturation - - Inhaled Oxygen Concentration - - Weight - - Height - - Body Mass Index - - Plan of Treatment Health Maintenance Due Date Last Done Comments Pneumococcal Vaccine: Pediat rics (0 to 5 Years) and At-Risk Patients (6 to 64 Years) (1 of 2 - PCV) 1981 Hepatitis B Vaccine (1 of 3 - 19+ 3-dose series) 01/18 Diabetes: Ophthalmology Exam 04/11/2022 Diabetes: Pedal Pulse Checked 04/11/2022 Diabetes: Sensory Foot Exam 04/11/2022 Diabetes: Visual Foot Exam 04/11/2022 Diabetes: Hemoglobin A1C 12/25/2022 09/26/2022 Colorectal Cancer Screening: Annual FOBT 01/19/2024 Colorectal Cancer Screening: Colonoscopy 01/19/2024 Colorectal Cancer Screening: Sigmoidoscopy 01/19/2024 Influenza Vaccine (Season Ended) 2025 Insurance [employer] ([id number]) [place] [id number] Care Teams Revenue Agent Relationship Specialty Start Date End Date Derick Cain PCP - General Internal Medicine 02/27/22
--- OUTSIDE RECORDS SUMMARY | 2025-02-01 15:43 | XMS_ITS | Encounter Summary ---
Author Organization [email or web address] Address 75 [facility] 7t [place] [address] Care Team Providers Care Invas Tech Name Role Phone Derick Ernst MD Primary Care Prov ider Encounter Details Date Type Department Care Team (Late st Contact Info) Description 02/09/2024 Orders Only [facility] MEDICINE [address] [place] [address] ProviderLinda MD Social History Tobacco Use Types Packs/Day Years Used Date Smoking Tobacco: Former Cigarettes 1 15 0 02/23/1985 - 02/24/2000 Passive Smoke Exposure: Past Smokeless Tobacco: Former Alcohol Use Standard Drinks/Week Comments Never 0 (1 standard drink = 0.6 oz pur e alcohol) Depression Answer Date Recorded Patient Health Questionnaire-9 Score 0 03/19/2023 Housing Stability Answer Date Recorded What is your housing situation today? I have chucharli jackson 08/27/[address] you [...] Answer Date Recorded Patient Health Questionnaire-2 Score 0 03/19/2023 Sex and Gender Information Value Date Recorded Sex Assigned at Male 08/25/2022 10:30 AM EDT Legal Sex Male 10:30 AM EDT Gender Identity Male 08/25/2022 10:30 AM EDT Sexual Orientation Straight 08/25/2022 10 :30 AM EDT documented as of this encounter Plan of Treatment Upcoming Encounters Date Type Department Care Team (Late st Contact Info) Description 02/02/2025 3:30 PM EDT Telemedicine [facility] MED & PEDS [address] [place] [address] Derick Ernst MD [address] [place] [address] documented as of this encounter Procedures Procedure Name Priority Date/Time Associated Diagnosis Comments HM COLONOSCOPY Routine 09/06/2021 7:12 AM EST documented in this encounter Results * Hm Colonoscopy (09/06/2021 7:12 AM EST) us Historical Provider HEALTH MAINTENANCE Final Result documented in this encounter Visit Diagnoses Not on filedocumented in this encounter Additional Health Concerns Assessment Noted Time PHQ-9 Depression Total Score: 0 03/19/20 23 1:47 PM EDT documented as of this encounter Care Teams Invas Tech Relationship Specialty Start Date End Date Derick Ernst MD [address] [place] [address] PCP - General Internal Medicine 03/25/20 documented as of this encounter
--- OUTSIDE RECORDS SUMMARY | 2025-02-01 15:43 | XMS_ITS | Encounter Summary ---
Author Organization [employer] Address [address] [place] [address] Care Team Providers Care Appraiser Art Name Role Phone Derick Ernst MD Primary Care Prov ider Reason for Visit * Reason Onset Date Comments Referral 12/08/2024 Encounter Details Date Type Department Care Team (Late st Contact Info) Description 12/08/2024 Telephone [facility] MEDICINE [address] [place] [address] Derick Ernst MD [address] [place] [address] Referral Social History Tobacco Use Types Packs/Day Years [...] AM EDT documented as of this encounter Miscellaneous Notes * Telephone Encounter - Shahab Restrepo - 12/08/2024 1:53 PM EST Tc from spouse requesting referral that was placed for podiatry to be sent again as she called facility and they said they haven't received anything. Referral to podiatry with provider Jamari Cadet, documented in this encounter Plan of Treatment Upcoming Encounters Date Type Department Care Team (Late st Contact Info) Description 02/02/2025 3:30 PM EDT Telemedicine [facility] MED & PEDS [address] [place] [address] Derick Ernst MD [address] [place] [address] documented as of this encounter Goals Goal Patient Goal Type Associated Problems Recent Progress Patient-Stated? Author Hemoglobin A1c < 7 Result Component 7.8(11/08/2024 3:47 PM EST) No Tierney Holguin, PharmD documented as of this encounter Visit Diagnoses Not on filedocumented in this encounter Additional Health Concerns Assessment Noted Time PHQ-9 Depression Total Score: 2 10/10/20 24 11:10 AM EST documented as of this encounter Care Teams Appraiser Art Relationship Specialty Start Date End Date Derick Ernst MD [address] [place] [id number] PCP - General Internal Medicine 03/25/20 documented as of this encounter
--- OUTSIDE RECORDS SUMMARY | 2025-02-01 15:43 | XMS_ITS | Encounter Summary ---
Author Organization [employer] Address [address] [place] [address] Care Team Providers Care Jewelry Making Instructor Name Role Phone Derick Ernst MD Primary Care Prov ider Encounter Details Date Type Department Care Team (Latest Contact Info) Description 11/11/2018 Abstract [facility] CONVERSIONS Dental, Provider, DDS Social History Tobacco Use Types Packs/Day Years [...] Upcoming Encounters Date Type Department Care Team ( st Contact Info) Description 02/02/2025 3:30 PM EDT Telemedicine [facility] CHC MED & PEDS [address] [place] [address] Derick Ernst MD [address] [place] [address] documented as of this encounter Visit Diagnoses Not on filedocumented in this encounter Care Teams Jewelry Making Instructor Relationship Specialty Start Date End Date Derick Ernst MD [address] [place] [address] PCP - General Internal Medicine 03/25/20 documented as of this encounter
--- OUTSIDE RECORDS SUMMARY | 2025-02-01 15:43 | XMS_ITS ---
Author Name [facility] Organization Unknown History of Medication Use Medication Directions Dispensed Refills Start Date End Date Stat us cetirizine 10 mg tablet TAKE ONE TABLET BY MOUTH EVERY DAY active clindamycin HCl 300 mg capsule TAKE ONE CAPSULE FOUR TIMES DAILY UNTIL FINISHED 3 active Pain Relief (acetaminophen) 500 mg tablet TAKE ONE TABLET THREE TIMES DAILY, DO NOT EXCEED SIX TABLETS IN 24 HOURS active atorvastatin 40 mg tablet TAKE ONE TABLET EVERY DAY active celecoxib 200 mg capsule TAKE ONE CAPSULE BY MOUTH EVERY DAY 3 active latanoprost 0.005 % eye drops PLACE ONE DROP IN EACH EYE EVERY EVENING 3 completed fluticasone propionate 50 mcg/actuation nasal spray,suspension INHALE 1 SPRAY IN EACH NOSTRIL ONCE DAILY 3 completed Ozempic 1 mg/dose (4 mg/3 mL) subcutaneous pen injector INJECT ONE MG SUBCUTANEOUSLY ONCE A WEEK ON Thursday 3 active Allergies Allergen Reaction Severity Comment Documented Date Source Statu s OXYCODONE ENS_AONECT Problems Problem Status Onset Date Problem Type Date of Resoluti on Source Pain of left knee joint active 2023-09-06 ProblemAct ENS_AONECT Encounters Encounter Type Encounter Reason Primary Diagnosis Location Date Ambulatory [facility] 09/07/2023 Ambulatory [facility] 07/29/2023 Ambulatory [facility] 07/20/2023 Ambulatory [facility] 07/20/2023 Ambulatory [facility] 07/20/2023 Ambulatory [facility] 07/16/2023 Ambulatory [facility] 07/15/2023 Ambulatory [facility] 07/15/2023
--- OUTSIDE RECORDS SUMMARY | 2025-02-01 15:43 | XMS_ITS | Encounter Summary ---
Author Organization [employer] Address [address] [place] [address] Care Team Providers Care Quality Control Clerk Name Role Phone Derick Ernst MD Primary Care Prov ider Encounter Details Date Type Department Care Team (Latest Contact Info) Description 07/23/2020 Abstract [facility] CONVERSIONS Dental, Provider, DDS Social History [...] Info) Description 02/02/2025 3:30 PM EDT Telemedicine [facility] MED & PEDS [address] [place] [address] Derick Ernst MD [address] [place] [address] documented as of this encounter Visit Diagnoses Not on filedocumented in this encounter Care Teams Quality Control Clerk Relationship Specialty Start Date End Date Derick Ernst MD [address] [place] [address] PCP - General Internal Medicine 03/25/20 documented as of this encounter
== END 2025-02-01 14:18 | disposition home or self-care (01) ==
PROVIDERS: PCP Internal Medicine; Visit Provider Internal Medicine
DX: E11.65 Type 2 diabetes mellitus with hyperglycemia (principal); Z79.4 Long term (current) use of insulin

== ENCOUNTER → 2025-02-01 13:34 | Outpatient (BNVA) | payer OTHER, SELFPAY | PROVIDERS: PCP Internal Medicine; Visit Provider Internal Medicine | DX: E11.65 Type 2 diabetes mellitus with hyperglycemia (principal); Z79.4 Long term (current) use of insulin | CPT/HCPCS: 82947; 83036; 99212 ==

== ENCOUNTER 2025-05-26 13:48 | Outpatient (AMB) | payer OTHER, SELFPAY ==
--- OUTSIDE RECORDS SUMMARY | 2025-05-26 13:51 | XMS_ITS | Encounter Summary ---
Author Organization [facility], Address [address] [facility] [address] [place] [address] Phone Care Team Providers Care Top Flavor Attendant Name Role Phone Derick Cain Primary Care Provider + [phone] Encounter Details Date Type Department Care Team (Late st Contact Info) Description 02/27/2022 Documentation Only [facility], [address] [place] [address] Derick Cain [address] [place], [place] [phone] Social History Tobacco Use Types Packs/Day Years [...] on filedocumented in this encounter Care Teams Top Flavor Attendant Relationship Specialty Start Date End Date Derick Cain PCP - General Internal Medicine 02/27/22 documented as of this encounter
--- OUTSIDE RECORDS SUMMARY | 2025-05-26 13:51 | XMS_ITS ---
Author Name [facility] Organization Unknown History of Medication Use Medication Directions Dispensed Refills Start Date End Date Stat us celecoxib 200 mg capsule TAKE ONE CAPSULE BY MOUTH EVERY DAY 3 active clindamycin HCl 300 mg capsule TAKE ONE CAPSULE FOUR TIMES DAILY UNTIL FINISHED 3 active fluticasone propionate 50 mcg/actuation nasal spray,suspension INHALE 1 SPRAY IN EACH NOSTRIL ONCE DAILY 3 completed latanoprost 0.005 % eye drops PLACE ONE DROP IN EACH EYE EVERY EVENING 3 completed Ozempic 1 mg/dose (4 mg/3 mL) subcutaneous pen injector INJECT ONE MG SUBCUTANEOUSLY ONCE A WEEK ON Thursday 3 active atorvastatin 40 mg tablet TAKE ONE TABLET EVERY DAY active cetirizine 10 mg tablet TAKE ONE TABLET BY MOUTH EVERY DAY active Pain Relief (acetaminophen) 500 mg tablet TAKE ONE TABLET THREE TIMES DAILY, DO NOT EXCEED SIX TABLETS IN 24 HOURS active Allergies Allergen Reaction Severity Comment Documented Date Source Statu s OXYCODONE ENS_AONECT Problems Problem Status Onset Date Problem Type Date of Resoluti on Source Pain of left knee joint active 2023-09-06 ProblemAct ENS_AONECT Encounters Encounter Type Encounter Reason Primary Diagnosis Location Date Ambulatory [facility] [place] 09/07/2023 Ambulatory [facility] [place] 07/29/2023 Ambulatory [facility] [place] 07/20/2023 Ambulatory [facility] [place] 07/20/2023 Ambulatory [facility] [place] 07/20/2023 Ambulatory [facility] [place] 07/16/2023 Ambulatory [facility] [place] 07/15/2023 Ambulatory [facility] [place] 07/15/2023
--- OUTSIDE RECORDS SUMMARY | 2025-05-26 13:51 | XMS_ITS | Clinical Summary ---
Author Organization [address] [place] [address] Address [address] [place] [address] Phone Care Team Providers Care Administrative Dietitian Name Role Phone Derick Ernst Primary Care Provide r Allergies Active Allergy Reactions Criticality Noted Date Comments Oxycodone 03/15/2025 Medications No known medications Encounters Date Type Department Care Team Description 04/25/2025 Telephone Orthopedic [facility] [address] [address] Maile Flores 03/15/2025 2:45 PM EDT Consult Orthopedic [facility] [address] [address] Jamari Cadet, DPM Dermatophytosis of nail (Primary Dx); Type 2 diabetes mellitus with diabetic chronic kidney disease ([facility] V24, [facility] V28); Pain in toe of right foot; Pain in toe of left foot; Diabetic mononeuropathy simplex ([facility] V24, [facility] V28); Type II diabetes mellitus with peripheral circulatory disorder ([facility] V24, [facility] V28); Metatarsalgia of both feet; Corns and callosities; Acquired hammer toe of right foot; Hammer toe of left foot; Acquired hallux valgus of left foot; Acquired hallux valgus of right foot from Last 3 Months Medical History Medical History Date Comments Esophageal reflux DX:Esophageal reflux Diabetes mellitus type 2, co ntrolled, with complications ([facility] V24, [facility] V28) DX:Diabetes mellitus type 2, controlled, with complications ([facility]) Essential hypertension DX:Essent ial hypertension Hyperlipidemia DX:Hyperlipidemi [...] - - Weight 128 kg (282 lb) 03/15/2025 2:42 PM EDT Height 188 cm (6' 2.02 ) 03/15/2025 2:42 PM EDT Body Mass Index 36.19 03/15/2025 2:42 PM EDT Plan of Treatment Upcoming Encounters Date Type Department Care Team ([facility] st Contact Info) Description 06/15/2025 1:15 PM EDT Office Visit Orthopedic Surgery - [facility] [address] [phone] Jamari Cadet, DPDiego [address] [address] Health Maintenance Due Date Last Done Comments Diabetes: Annual GFR (Glomerular Filtration Rate) 1975 Diabetes: Annual Foot Exam 1985 Diabetes: Annual Retina Eye Exam 1985 Hepatitis B Vaccines (1 of 3 - 19+ 3-dose series) 1994 Zoster Vaccines (1 of 2) 1994 Pneumococcal Vaccine: 50+ Years (2 of 2 - PCV) 11/12/2017 11/12/2016 COVID-19 Vaccine (3 - Pfizer risk series) 04/19/2021 03/22/2021, 03/01/2021 Colorectal Cancer Screening: Colonoscopy 09/28/2022 Hepatitis C Screening 09/28/2022 Medicare Annual Wellness Visit 09/28/2022 Social Influencers of Health Screening 09/28/2022 Diabetes: Annual Urine Albumin-Creatinine Ratio (uACR) 10/11/2022 Depression Screening 10/26/2024 DTaP,Tdap,and Td Vaccines (2 - Td or Tdap) 10/27/2024 10/27/2014 Hypertension/CHF/CAD Annual BMP Blood Test 03/16/2025 Diabetes: Blood Sugar Contro l Test (HGBA1C) 05/08/2025 11/08/2024 Influenza Vaccine (#1) 2025 7, 07/21/2016 Cholesterol Screening (Lipid Panel) 04/25/2029 04/25/2024 HIV Screening Completed 01/09/2022 HIB Vaccines Aged Out No longer eligi [...] to complete this topic RSV Immunization Patients Under 20 months Aged Out No longer eligible b ased on patient's age to complete this topic Varicella Vaccines Aged Out No longer eligible based on patient's age to complete this topic Insurance [employer] MEDICARE Member Subscriber Plan / Payer (Ef fective 2018-Present) Name:GLEN SAVAGE Relation to Subscriber:Self Name:Glen Savage Payer ID:[id number] Group ID:[id number] Type:Not on file Address: [place] [address] [place] [phone] Care Teams Administrative Dietitian Relationship Specialty Start Date End Date Derick Ernst [address] [place] [address] PCP - General Internal Medicine 01/04/25
--- OUTSIDE RECORDS SUMMARY | 2025-05-26 13:51 | XMS_ITS | Encounter Summary ---
Author Organization [employer] Address [address] [facility] 7t [place] [address] Care Team Providers Care Workday Senior Associate Name Role Phone Derick Ernst MD Primary Care Prov ider Encounter Details Date Type Department Care Team ([facility] st Contact Info) Description 02/09/2024 Orders Only [facility] MEDICINE [address] [place] [address] Provider, MD Linda Social History Tobacco Use Types Packs/Day Years [...] t he electric, gas, oil or water [employer] threatened to shut off services in your [...] on file documented as of this encounter Procedures Procedure [...] documented as of this encounter Care Teams Workday Senior Associate Relationship Specialty Start Date End Date Dercik Ernst MD [address] [place] [id number] PCP - General Internal Medicine 03/25/20 documented as of this encounter
[2025-05-26 14:00] VITALS: BP 120/62; PULSE 84; O2SAT 97; BMI 35.6
--- NOTE | 2025-05-26 14:00 | MHC.OFFVIS ---
Vital Signs 05/26/25 14:00 Height 6 ft 2 in Weight 277 lb 1.937 oz BMI 35.6 BP 120/62 Blood Pressure Location Lt brachial Position Sitting Pulse 84 Pulse Source Pulse Oximeter Pulse Oximetry (%) 97 Oxygen Delivery Method Room Air Intake Visit Reasons: Diabetes Type 2 Intake Note: Patient present today for Type 2 Diabetes Mellitus Last Diabetic eye exam: 02/2024 Last Podiatry Visit: 02/2025 Random Glucose: 167 mg/dl HgA1C: 8.0% Single Stayer Operator Required: Yes Single Stayer Operator Language: Optical Instrument Repairer Services: Single Stayer Operator Present Single Stayer Operator Name: Cydney [id number] Information Interpreted: non-clinical & clinical Accompanied by: Self / Same As Patient Allergies oxycodone Allergy (Unknown, Verified 05/26/25 14:06) Unknown Medication List - Last Reconciled 05/26/25 by Vanesa Hermosillo PA-C aspirin 81 mg PO DAILY atorvastatin 40 mg PO BEDTIME blood sugar diagnostic (FreeStyle Lite Strips) As directed [Diabetic shoe 1 pair diabetic shoes continuous; ] diabetic supplies, miscellan. Diabetic shoes -1 pair continuous enalapril maleate 5 mg PO DAILY FreeStyle Naif 3 Plus Sensor (blood-glucose sensor) every 14 days NS FreeStyle Naif 3 [place] (blood-glucose,artificial flowers starcher,cont) As directed NS hydroxyzine pamoate 50 mg PO TID lancets (TRUEplus Lancets) As directed loratadine 10 mg PO DAILY methocarbamol 750 mg PO Q6H PRN omeprazole 40 mg PO QAM pen needle, diabetic (Unifine Pentips) USE FOUR TIMES DAILY DIRECTED pioglitazone (Actos) 15 mg PO DAILY tirzepatide (Mounjaro) 7.5 mg (0.5 mL) subcut QWEEK tizanidine 4 mg PO TID HPI HPI Diabetes Type 2: Details: 50 YO M who is seen in F/U for [id number] 2003 Med history: 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 He also tried Ozempic and Bydureon , and Januvia. These were discontinued as he failed therapy. Using Freestyle Naif 3+. POC A1C today 7.5%, from 8.4%. Naif download reviewed GMI 7.5% active 97%, 34% high, 66% target, 0% low. He states he was on vacation and not eating as well as he normally does. He feels hypoglycemia when BG drops below 100/110 which limits uptitratrion at the time being because he ends up skipping meds and snacking to control his symptoms Has hypoglycemic awareness. Treats with juice, and checks sugar after to make sure its rising. Complications: neuropathy, retinopathy. no longer seeing podiatry. Ophtho ~3 months ago. No Nephropathy,on/off Enalapril sometimes soft BP and symptomatic. CV: bp today in office is 120/62. He is on enalapril 5 mg. [facility] Medical History Vitamin D deficiency HLD (hyperlipidemia) HTN (hypertension) T2DM (type 2 diabetes mellitus) Surgical History History of carpal tunnel surgery Male circumcision Family History Father No problems noted. Mother No problems noted. Social History Alcohol intake: never Patient Tobacco Use Status: Never used Tobacco service: No Current occupational status: employed Physical Exam Vital Signs: Last Vital Signs Pulse 84 05/26/25 14:00 BP 120/62 05/26/25 14:00 Pulse Ox 97 05/26/25 14:00 Oxygen Delivery Method Room Air 05/26/25 14:00 BMI result Body Mass Index 35.6 Const Orientation/consciousness: patient oriented x3 HEENT Ears: hearing grossly normal bilaterally Neck Thyroid: Thyroid normal Lymphatic: no lymphadenopathy noted Resp Auscultation: clear to auscultation bilaterally Cardio Rate: regular rate Rhythm: regular rhythm Heart sounds: S1 normal heart sound present and S2 normal heart sound present Skin General skin exam: no rashes or lesions noted Neuro General: patient oriented x3, gait normal and no focal motor deficits Results AMB Hemoglobin A1c AMB Hemoglobin A1c 8.0 % Last Edit by CHERRIE Jones on 05/26/25 14:26 Results Reviewed Results Reviewed: Laboratory Last Values Glucose (Clinic) 167 mg/dL (60-115) H 05/26/25 14:09 Laboratory Tests 05/26/23 02/01/25 02/01/25 14:30 13:57 14:10 Glucose (Clinic) 148 H Hgb A1c (Clinic) 7.5 H Urine Creatinine 402.32 Urine Microalbumin 102.0 Microalb/Creat Ratio 25.3 Assessment & Plan Assessment & Plan (1) T2DM (type 2 diabetes mellitus): Code(s): E11.9 - Type 2 diabetes mellitus without complications Category: Medical Qualifiers: Diabetes mellitus bolt man insulin use: with fpc use Diabetes mellitus complication status: with hyperglycemia Qualified Code(s): E11.65 - Type 2 diabetes mellitus with hyperglycemia; Z79.4 - watershed tender (current) use of insulin Plan: We will increase the Mounjaro to 10 mg weekly. Continue the Actos 15 mg daily Upgrade to Naif 3+ sensor Refilled testing supplies today Return in 3 months for follow up or sooner if needed (2) HTN (hypertension): Code(s): I10 - Essential (primary) hypertension Category: Medical Plan: WNL. Continue current regimen Orders: Orders AMB Hemoglobin A1c Today E11.65 - Type 2 diabetes mellitus with hyperglycemia, Z13.9 - Encounter for screening, unspecified, Z79.4 - watershed tender (current) use of insulin Referrals Baling Machine Tender Nutrition Referral E11.65 - Type 2 diabetes mellitus with hyperglycemia, E78.5 - Hyperlipidemia, unspecified, I10 - Essential (primary) hypertension, Z79.4 - correction (current) use of insulin Medications: New blood-glucose sensor (FreeStyle Naif 3 Plus Sensor device) Use daily As directed to monitor glucose 6 ea 3RF E08.29 - Diabetes mellitus due to underlying condition with other diabetic kidney complication, R80.9 - Proteinuria, unspecified, Z79.4 - watershed tender (current) use of insulin tirzepatide (Mounjaro) 10 mg (0.5 mL) subcut QWEEK 2 mL 5RF Refilled pioglitazone (Actos) 15 mg PO DAILY 90 tabs 3RF Discontinued tirzepatide (Mounjaro) Discontinued Reason: Doctor's Order 7.5 mg (0.5 mL) subcut QWEEK 6 mL 3RF FreeStyle Naif 3 Plus Sensor (blood-glucose sensor) Discontinued Reason: Doctor's Order every 14 days 6 ea 3RF NS E11.65 - Type 2 diabetes mellitus with hyperglycemia, Z79.4 - watershed tender (current) use of insulin Coding Level of Care Code Est Pt Level 4 (69343) Complex EM visit Add On G2211 Diagnoses Type 2 diabetes mellitus with hyperglycemia, with long-term current use of insulin E11.65; Z79.4 Diabetes mellitus fpc insulin use: with bolt man use Diabetes mellitus complication status: with hyperglycemia Hypertension, unspecified type I10
[2025-05-26 14:14] LABS: Glucose, Whole Blood 167 mg/dL (60-115)
== END 2025-05-26 14:33 | disposition home or self-care (01) ==
LOC: HO.ENCR 13:49
PROVIDERS: PCP Internal Medicine; Visit Provider Physician Assistant
DX: Z13.9 Encounter for screening, unspecified (principal); E11.65 Type 2 diabetes mellitus with hyperglycemia; Z79.4 Long term (current) use of insulin; I10 Essential (primary) hypertension

== ENCOUNTER → 2025-05-26 13:48 | Outpatient (BNVA) | payer OTHER, SELFPAY | PROVIDERS: PCP Internal Medicine; Visit Provider Physician Assistant | DX: E11.65 Type 2 diabetes mellitus with hyperglycemia (principal); E11.40 Type 2 diabetes mellitus with diabetic neuropathy, unspecified; E11.319 Type 2 diabetes mellitus with unspecified diabetic retinopathy without macular edema; I10 Essential (primary) hypertension; Z79.85 Long-term (current) use of injectable non-insulin antidiabetic drugs | CPT/HCPCS: 82947; 83036; 99212 ==

== ENCOUNTER 2025-06-06 13:46 | Outpatient (AMB) | payer OTHER, SELFPAY ==
--- NOTE | 2025-06-06 14:13 | MHC.AMNUTRGE ---
VS Expanded 06/06/25 14:14 06/07/25 14:07 Height 6 ft 2 in 6 ft 2 in Weight 274 lb 11.135 oz 275 lb BMI 35.3 35.3 Intake Visit Reasons: DM Allergies oxycodone Allergy (Unknown, Verified 05/26/25 14:06) Unknown Nutrition Presentation Details: Pt presents for MNT for T2DM food frequency Fish 0-1/wk fruits: 2/d vex/wk dairy : 3-4 /d physical activity: adl and walks 30 min 3x/wk etoh/smoking : denies fried foods 2/m pastries and similar 1/wk beverages: varies: water, low sugar, tea ALE-Gwnxclc-Vk.Jeor Equation Height: 6 ft 2 in Weight: 275 lb Resting Metabolic Rate: 2179.88 Calculated Activity Level: Mild Activity Calories Needed to Maintain Weight: 2997.34 Diagnosis Nutrition problem #1: altered nutrition labs As related to (etiology) #1: diagnosis As evidenced by (sign/symptom) #1: knowledge deficit of diet [facility] Medical History Vitamin D deficiency HLD (hyperlipidemia) HTN (hypertension) T2DM (type 2 diabetes mellitus) Surgical History History of carpal tunnel surgery Male circumcision Family History Father No problems noted. Mother No problems noted. Social History Alcohol intake: never Patient Tobacco Use Status: Never used Tobacco service: No Current occupational status: employed Assessment & Plan Assessment & Plan (1) T2DM (type 2 diabetes mellitus): Code(s): E11.9 - Type 2 diabetes mellitus without complications Category: Medical Qualifiers: Diabetes mellitus complication status: with hyperglycemia Diabetes mellitus [facility] insulin use: with long term care social worker use Qualified Code(s): E11.65 - Type 2 diabetes mellitus with hyperglycemia; Z79.4 - middle or intermediate school principal (current) use of insulin Plan: Wt: 125 Kg ( 06/19 ) Est kcal needs as per MSJ: 3000 (40% carb, 30% protein/fat) Est fluid needs as per 25-30 ml/d: 3700 Est prot per day as per 1 g/kg bw: 130 Recommend fiber intake : 8-10 g per day and gradually increase to 25-28 g per day for women and 35-38 g for men or as tolerated Recommend sodium intake per day : less than 2300 mg Educated patient on: ( R = reviewed V = verbalizes understanding N/R = needs review N/A = not applicable Food sources of carbohydrate, adequate serving sizes and its role in various health conditions: R Differences between complex carbohydrates a simple carbohydrates, role of fiber in diet: R Lean protein sources of foods: R Differences between types of fats and role in diet (mono on saturated fat fatty acids, saturated fatty acids, trans fats): R V N/R Food sources of sodium in salt and healthy modifications for heart health in kidney health: R V R/V Vitamins and minerals: R V N/R Healthy plate method concept: R Physical activity: Benefits a precaution: R V N/R Hypoglycemia protocol (rule of 15): R V N/R Dietary prevention of Hyperglycemia: R Patient Instructions: Follow healthy plate method at dinner (less than 100 g total carb ) Choose beverages with no sugar -see list of options Coding Level of Care Code Nutr Indiv Subseq (74124) Diagnoses Type 2 diabetes mellitus with hyperglycemia, with long-term current use of insulin E11.65; Z79.4 Diabetes mellitus complication status: with hyperglycemia Diabetes mellitus long term care social worker insulin use: with long term care social worker use Time Spent (min) 30
[2025-06-06 14:14] VITALS: BMI 35.3
--- OUTSIDE RECORDS SUMMARY | 2025-06-06 14:48 | XMS_ITS | Clinical Summary ---
Author Organization [address] [place] [address] Address [address] [place] [address] Phone Care Team Providers Care Port Engineer Name Role Phone Derick Ernst Primary Care Provide r Allergies Active Allergy Reactions Criticality Noted Date Comments Oxycodone 03/15/2025 Medications No known medications Encounters Date Type Department Care Team Description 04/25/[address] [facility] [address] [phone] Maile Flores 03/15/2025 2:45 PM EDT Consult Orthopedic [facility] [address] [phone] Jamari Cadet, DPM Dermatophytosis of nail (Primary Dx); Type 2 diabetes mellitus with diabetic chronic kidney disease ([facility] V24, [facility] V28); Pain in toe of right foot; Pain in toe of left foot; Diabetic mononeuropathy simplex ([facility] V24, [facility] V28); Type II diabetes mellitus with peripheral circulatory disorder ([facility] V24, [facility] V28); Metatarsalgia of both feet; Corns and callosities; Acquired hammer toe of right foot; Hammer toe of left foot; Acquired hallux valgus of left foot; Acquired hallux valgus of right foot from Last 3 Months Medical History Medical History Date Comments Esophageal reflux DX:Esophageal reflux Diabetes mellitus type 2, co ntrolled, with complications ([facility] V24, [facility] V28) DX:Diabetes mellitus type 2, controlled, with complications ([facility]) Essential hypertension DX:Essent ial hypertension Hyperlipidemia DX:Hyperlipidemi [...] Upcoming Encounters Date Type Department Care Team ([facility] st Contact Info) Description 06/15/2025 1:15 PM EDT Office Visit Orthopedic Surgery [place] [address] [phone] Jamari Cadet, DPDiego [address] [address] Health Maintenance Due Date Last Done Comments [...] ID:[id number] Group ID:[id number] Type:Not on file Address: [place] [address] [place] [address] Care Teams Port Engineer Relationship Specialty Start Date End Date Dreick Ernst [address] [place] [address] PCP - General Internal Medicine 01/04/25
--- OUTSIDE RECORDS SUMMARY | 2025-06-06 14:48 | XMS_ITS | Encounter Summary ---
Author Organization [facility], Address [address] [place] [address] Phone Care Team Providers Care Underwriting Service Representative Name Role Phone Derick Cain Primary Care Provider + [phone] Encounter Details Date Type Department Care Team (Late st Contact Info) Description 02/27/2022 Documentation Only [facility], [address] [place] [address] Derick Cain [address] [place], [place] [phone] Social History Tobacco Use Types Packs/Day Years [...] on filedocumented in this encounter Care Teams Underwriting Service Representative Relationship Specialty Start Date End Date Derick Cain PCP - General Internal Medicine 02/27/22 documented as of this encounter
--- OUTSIDE RECORDS SUMMARY | 2025-06-06 14:48 | XMS_ITS | Encounter Summary ---
Author Organization [employer] Address [address] [facility] 7t [place] [address] Care Team Providers Care State Historical Society Director Name Role Phone Derick Ernst MD Primary Care Prov ider Encounter Details Date Type Department Care Team ([facility] st Contact Info) Description 02/09/2024 Orders Only [facility] [address] [place] [address] Provider, MD Linda Social History Tobacco Use [...] t he electric, gas, oil or water [employer] threatened to shut off services in your [...] documented as of this encounter Care Teams State Historical Society Director Relationship Specialty Start Date End Date Derick Ernst MD [address] [place] [address] PCP - General Internal Medicine 03/25/20 documented as of this encounter
[2025-06-07 14:07] VITALS: BMI 35.3
== END 2025-06-06 15:01 | disposition home or self-care (01) ==
LOC: HO.ENCR 13:47
PROVIDERS: PCP Internal Medicine; Visit Provider Dietitian, Registered
DX: E11.65 Type 2 diabetes mellitus with hyperglycemia (principal); Z79.4 Long term (current) use of insulin

== ENCOUNTER → 2025-06-06 13:46 | Outpatient (BNVA) | payer OTHER, SELFPAY | PROVIDERS: PCP Internal Medicine; Visit Provider Dietitian, Registered | DX: E11.65 Type 2 diabetes mellitus with hyperglycemia (principal); E78.5 Hyperlipidemia, unspecified; E55.9 Vitamin D deficiency, unspecified; Z79.4 Long term (current) use of insulin; Z71.3 Dietary counseling and surveillance | CPT/HCPCS: 97803 ==

== ENCOUNTER 2025-09-04 13:43 | Outpatient (AMB) | payer OTHER, SELFPAY ==
[2025-09-04 13:48] VITALS: BP 116/62; PULSE 74; O2SAT 96; BMI 35.3
--- NOTE | 2025-09-04 13:48 | MHC.OFFVIS ---
Vital Signs 09/04/25 13:48 Height 6 ft 2 in Weight 274 lb 11.135 oz BMI 35.3 BP 116/62 Blood Pressure Location Lt brachial Position Sitting Pulse 74 Pulse Source Pulse Oximeter Pulse Oximetry (%) 96 Oxygen Delivery Method Room Air Intake Visit Reasons: DM Intake Note: Patient present today for Type 2 Diabetes Mellitus Last Diabetic eye exam: Last exam was in January Last Podiatry Visit: Last visit was around 05/2025 Random Glucose: 154 mg/dl HgA1C: 7.8% Emergency Vehicle Operator Required: Yes Emergency Vehicle Operator Language: Duct Cleaner Services: Emergency Vehicle Operator Present Emergency Vehicle Operator Name: Antonio [phone] Information Interpreted: non-clinical & clinical Accompanied by: Self / Same As Patient Allergies oxycodone Allergy (Unknown, Verified 09/04/25 13:55) Unknown HPI HPI DM: Details: 50 YO M who is seen in F/U for [id number] 2003 Med history: 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 He also tried Ozempic and Bydureon , and Januvia. These were discontinued as he failed therapy. Using Freestyle Naif 3+. POC A1C today 7.8%, Naif download reviewed GMI 7.1% active 98%, 21% high, 79% target, 0% low. Denies any hypogylcemia. He feels hypoglycemia when BG drops below 100. Has hypoglycemic awareness. Treats with juice, and checks sugar after to make sure its rising. No Nephropathy,on/off Enalapril sometimes soft BP and symptomatic. CV: bp today in office is 116/62. He is on enalapril 5 mg. Cholesterol is managed with atorvastatin 40 mg. [facility] Medical History Vitamin D deficiency HLD (hyperlipidemia) HTN (hypertension) T2DM (type 2 diabetes mellitus) Surgical History History of carpal tunnel surgery Male circumcision Family History Father No problems noted. Mother No problems noted. Social History Alcohol intake: never Patient Tobacco Use Status: Never used Tobacco service: No Current occupational status: employed Physical Exam Const Orientation/consciousness: patient oriented x3 HEENT Ears: hearing grossly normal bilaterally Neck Thyroid: Thyroid normal Lymphatic: no lymphadenopathy noted Resp Auscultation: clear to auscultation bilaterally Cardio Rate: regular rate Rhythm: regular rhythm Heart sounds: S1 normal heart sound present and S2 normal heart sound present Skin General skin exam: no rashes or lesions noted Neuro General: patient oriented x3, gait normal and no focal motor deficits Results AMB Hemoglobin A1c AMB Hemoglobin A1c 7.8 % Last Edit by CHERRIE Jones on 09/04/25 14:10 Results Reviewed Results Reviewed: Laboratory Tests 11/03/24 02/01/25 02/01/25 13:18 13:57 14:10 Glucose (Clinic) 148 H Hgb A1c (Clinic) 8.4 H 7.5 H 05/26/25 05/26/25 14:09 14:13 Glucose (Clinic) 167 H Hgb A1c (Clinic) 8.0 H Assessment & Plan Assessment & Plan (1) T2DM (type 2 diabetes mellitus): Code(s): E11.9 - Type 2 diabetes mellitus without complications Category: Medical Qualifiers: Diabetes mellitus skilled nursing insulin use: with skilled nursing use Diabetes mellitus complication status: with hyperglycemia Qualified Code(s): E11.65 - Type 2 diabetes mellitus with hyperglycemia; Z79.4 - retirement (current) use of insulin Plan: He does not want to make any changes today to his treatment plan. He states he wants to work on diet. He plans to follow with nutrition again. Continue the Mounjaro to 10 mg weekly. Continue the Actos 15 mg daily Encouraged diet and exercise modifications. Refilled testing supplies today Return in 3 months for follow up or sooner if needed (2) HTN (hypertension): Code(s): I10 - Essential (primary) hypertension Category: Medical Plan: WNL. Continue current regimen Orders: Orders AMB Hemoglobin A1c Today E11.65 - Type 2 diabetes mellitus with hyperglycemia, Z13.9 - Encounter for screening, unspecified, Z79.4 - laborer marine terminal (current) use of insulin Hemoglobin A1c Today E11.65 - Type 2 diabetes mellitus with hyperglycemia, E78.5 - Hyperlipidemia, unspecified, I10 - Essential (primary) hypertension, R73.01 - Impaired fasting glucose, Z79.4 - retirement (current) use of insulin Lipid Panel Today E11.65 - Type 2 diabetes mellitus with hyperglycemia, E78.5 - Hyperlipidemia, unspecified, I10 - Essential (primary) hypertension, Z79.4 - laborer marine terminal (current) use of insulin Microalbumin, Random (w Creat) Today E11.65 - Type 2 diabetes mellitus with hyperglycemia, E78.5 - Hyperlipidemia, unspecified, I10 - Essential (primary) hypertension, Z79.4 - retirement (current) use of insulin Comprehensive [place]. Panel Fast Today E11.65 - Type 2 diabetes mellitus with hyperglycemia, E78.5 - Hyperlipidemia, unspecified, I10 - Essential (primary) hypertension, Z79.4 - laborer marine terminal (current) use of insulin Coding Level of Care Code Est Pt Level 4 (18626) Complex EM visit Add On G2211 Diagnoses Type 2 diabetes mellitus with hyperglycemia, with long-term current use of insulin E11.65; Z79.4 Diabetes mellitus skilled nursing insulin use: with termite control technician use Diabetes mellitus complication status: with hyperglycemia Hypertension, unspecified type I10
[2025-09-04 14:02] LABS: Glucose, Whole Blood 154 mg/dL (60-115)
--- OUTSIDE RECORDS SUMMARY | 2025-09-04 15:55 | XMS_ITS | Encounter Summary ---
Author Organization [employer] [facility] Address [address] [place] [address] [address] [place] [address] Care Team Providers Care Jukebox Checker Name Role Phone Derick Ernst MD Primary Care Prov ider Encounter Details Date Type Department Care Team (Latest Contact Info) Description 07/23/2020 Abstract [facility] CONVERSIONS Dental, Provider, DDS Social History [...] Care Team (Late st Contact Info) Description 09/06/2025 2:30 PM EST Telemedicine [facility] [address] [place] [address] Derick Ernst MD [address] [place] [address] documented as of this encounter Visit Diagnoses Not on filedocumented in this encounter Care Teams Jukebox Checker Relationship Specialty Start Date End Date Derick Ernst MD [address] [place] [address] PCP - General Internal Medicine 03/25/20 documented as of this encounter
--- OUTSIDE RECORDS SUMMARY | 2025-09-04 15:55 | XMS_ITS | Encounter Summary ---
Author Organization [employer] Address [address] [facility] 7t [place] [address] Care Team Providers Care Accounting Officer Name Role Phone Derick Ernst MD Primary Care Prov ider Encounter Details Date Type Department Care Team ([facility] st Contact Info) Description 09/04/2025 Orders Only GENERIC EXTERNAL DATA DEPARTMENT Provider, Generic External Data Social History Tobacco Use Types Packs/Day Years Used Date Smoking Tobacco: Former Cigarettes 1 15 0 02/23/1985 - 02/24/2000 Passive Smoke Exposure: Past Smokeless Tobacco: Former Alcohol Use Standard Drinks/Week Comments Never 0 (1 standard drink = 0.6 oz pur e alcohol) Depression Answer Date Recorded Patient Health Questionnaire-9 Score 12 02/02/2025 Patient Health Questionnaire-9 Score 12 02/02/2025 Last PHQ-9: Questionnaire Data Not on file 0 02/02/2025 Housing Stability Answer Date Recorded What is [...] Date Recorded Patient Health Questionnaire-2 Score 2 02/02/2025 Sex and Gender Information Value Date Recorded Sex Assigned at Male 08/25/2022 10:30 AM EDT Legal Sex Male 10:30 AM EDT Gender Identity Male 08/25/2022 10:30 AM EDT Sexual Orientation Straight 08/25/2022 10 :30 AM EDT documented as of this encounter Plan of Treatment Upcoming Encounters Date Type Department Care Team (Late st Contact Info) Description 09/06/2025 2:30 PM EST Telemedicine [facility] [address] [place], [place] [phone] Derick Ernst MD [address] [place] [address] documented as of this encounter Goals Goal Patient Goal Type Associated Problems Recent Progress Patient-Stated? Author Hemoglobin A1c < 7 Result Component 7.8(11/08/2024 3:47 PM EST) No Tierney Holguin, Dawn documented as of this encounter Procedures Procedure Name Priority Date/Time Associated Diagnosis Comments GLUCOSE, WHOLE BLOOD Routine 09/04/2025 1:56 PM EST documented in this encounter Results * (ABNORMAL) Glucose, Whole Blood (09/04/2025 1:56 PM EST) Glucose, Whole Blood 154(H) 60 - 115 mg/dL [facility] Comment:METER #: [id number] Testing performed in the Endocrinology Department [address] , [address], [facility]. 09/04/2025 1:56 PM EST 09/04/2025 2:02 PM EST us Generic External Data Provider LAB BLOOD ORDERAB LES Final Result [facility] [address] [place] [address] [phone] documented in this encounter Visit Diagnoses Not on filedocumented in this encounter Additional Health Concerns Assessment Noted Time PHQ-9 Depression Total Score: 12 025 2:59 PM EDT documented as of this encounter Care Teams Accounting Officer Relationship Specialty Start Date End Date Derick Ernst MD [address] [place] [address] PCP - General Internal Medicine 03/25/20 documented as of this encounter
--- OUTSIDE RECORDS SUMMARY | 2025-09-04 15:55 | XMS_ITS | Encounter Summary ---
Author Organization [employer] Address [address] [place] [address] Care Team Providers Care Pile Driving Technician Name Role Phone Derick Ernst MD Primary Care Prov ider Reason for Visit * Reason Onset Date Comments Referral 12/08/2024 Encounter Details Date Type Department Care Team ([facility] st Contact Info) Description 12/08/2024 Telephone [facility] [address] [place] [address] Derick Ernst MD [address] [place] [address] Referral Social History Tobacco Use Types Packs/Day [...] Info) Description 09/06/2025 2:30 PM EST Telemedicine [facility] [address] [place] [address] Derick Ernst MD [address] [place] [phone] documented as of this encounter Goals Goal Patient Goal Type Associated Problems Recent Progress Patient-Stated? Author Hemoglobin A1c < 7 Result Component 7.8(11/08/2024 3:47 PM EST) No Tierney Holguin, Dawn documented as of this encounter Visit Diagnoses Not on filedocumented in this encounter Additional Health Concerns Assessment Noted Time PHQ-9 Depression Total Score: 2 10/10/20 24 11:10 AM EST documented as of this encounter Care Teams Pile Driving Technician Relationship Specialty Start Date End Date Derick Ernst MD [address] [place] [phone] PCP - General Internal Medicine 03/25/20 documented as of this encounter
--- OUTSIDE RECORDS SUMMARY | 2025-09-04 15:55 | XMS_ITS | Encounter Summary ---
Author Organization [employer] Address [address] [place] [address] Care Team Providers Care Interactive Graphic Designer Name Role Phone Derick Ernst MD Primary Care Prov ider Reason for Visit * Reason Onset Date Comments CHART PREP 09/04/2025 Encounter Details Date Type Department Care Team ([facility] Contact Info) Description 09/04/2025 Telephone [facility] [address] [place], [place] [phone] Derick Ernst MD [address] [place] [address] CHART PREP Social History Tobacco Use Types Packs/Day Years [...] encounter Miscellaneous Notes * Telephone Encounter - Tracy Lau [place] - 09/04/2025 2:00 PM EST Chart Prep Labs: done Images: done Referrals: appointment pending Vaccines due: Flu, PCV20, Tdap, and Zoster Screenings: eye exam and foot exam Overdue care gaps: A1c, SDOH, and PHQ-9 documented in this encounter Plan of Treatment Upcoming Encounters Date Type Department Care Team ([facility] Contact Info) Description 09/06/2025 2:30 PM EST Telemedicine [facility] [address] [place] [address] CainDerick Avalos MD [address] [place] [address] documented as of this encounter Goals Goal [...] documented as of this encounter Care Teams Interactive Graphic Designer Relationship Specialty Start Date End Date CainDerick Avalos MD [address] [place] [phone] PCP - General Internal Medicine 03/25/20 documented as of this encounter
--- OUTSIDE RECORDS SUMMARY | 2025-09-04 15:55 | XMS_ITS | Clinical Summary ---
Author Organization [employer] Address [address] [place] [address] [address] [place] [address] Care Team Providers Care Kier Operator Name Role Phone Derick Ernst MD Primary [...] USE DIRECTED FOUR TIMES DAILY 3 Active TRUEplus Lancets 33G miscIndications: Type 2 diabetes mellitus with stage 3b chronic kidney disease, with long-term current use of insulin ([facility]) TEST BLOOD SUGAR FOUR TIMES DAILY 100 each 11 4 Active atorvastatin (Lipitor) 40 MG tablet Take 1 tablet by mouth Once per day. 2 Active Continuous Glucose Sensor (FreeStyle Naif 2 Sensor) misc Apply 1 each topically every 14 (fourteen) days. 4 Active Mounjaro 10 MG/0.5ML solution pen-injector Inject 7.5 mg under the skin 1 (one) time per week. 4 Active Blood Pressure kit 1 kit Once per day. 1 kit 4 Active glucose blood (FREESTYLE LITE) test stripIndications :Type 2 diabetes mellitus with stage 3b chronic kidney disease, with long-term current use of insulin ([facility]) Glucose monitor 3 times a day 100 strip 11 5 Active lidocaine (Lidoderm) 5 % patch APPLY 1 PATCH TO SKIN. LEAVE ON FOR 12 HOURS, THEN OFF FOR 12 HOURS DIRECTED. 30 patch 1 5 Active tiZANidine (Zanaflex) 4 MG tablet TAKE ONE TABLET EVERY 6 HOURS NEEDED 120 tablet 1 5 Active cetirizine (ZyrTEC) 10 MG tabletIndication s:Atopic dermatitis, unspecified TAKE ONE TABLET EVERY DAY 30 tablet 3 5 Active enalapril (Vasotec) 5 MG tablet Take 1 tablet (5 mg) by mouth Once per day. 90 tablet 3 5 05/22/20 26 Active hydrOXYzine pamoate (Vistaril) 50 MG capsuleIndicatio ns:Anxiety Take 1 capsule (50 mg) by mouth 3 times daily. 90 capsule 11 5 Active methocarbamol (Robaxin) 750 MG tabletIndication s:Neck pain TAKE ONE TABLET FOUR TIMES DAILY 120 tablet 5 Active mirtazapine (Remeron) 15 MG tablet TAKE ONE TABLET EVERY NIGHT AT BEDTIME 30 tablet 5 Active Active Problems Problem Noted Date Diagnosed Date Pain in both thighs 05/22/2025 Assessment & Plan (05/22/2025 4:39 PM EDT): Hx of smoker, DM, refers having thigh pain on the back on exertion, will refer to vascular surgery for eval intermitent claudication Muscle spasm 02/02/2025 Assessment & Plan (02/02/2025 3:33 PM EDT): Patient refers methocarbamol helps him the most with muscle pain, will send PA to insurance, told to continue stretching exercises, follow up as needed Foot callus 11/09/2024 Assessment & Plan (11/09/2024 10:27 AM EST): Will refer to podiatry, no open skin Glaucoma 02/19/2024 Class 2 obesity 02/19/2024 Obesity 02/19/2024 Hypertension 02/19/2024 Assessment & Plan (05/22/2025 4:33 PM EDT): Controlled, keep low sodium diet and exercise as tolerated, keep bp log, target <130/80 Assessment & Plan (02/02/2025 3:31 PM EDT): Controlled, continue low sodium diet and exercise as tolerated, keep bp log, follow up in 3 months Other sleep apnea 02/19/2024 Assessment & Plan (02/19/2024 11:17 AM EDT): Stop bang score 4 points, will refer for sleep study test Arthralgia of left knee 09/06/2023 Esophageal dysphagia 01/20/2023 Assessment & Plan (01/20/2023 5:25 PM EDT): Complains of chronic dysphagia to solids and liquids, will refer to GI for evaluation Primary insomnia 01/20/2023 Assessment & Plan (05/22/2025 4:34 PM EDT): Seroquel did not worked for him, will send mirtazapine, call back as needed Assessment & Plan (02/02/2025 3:30 PM EDT): Will start on seroquel, [place] was increasing his blood glucose, follow up as neeeded Assessment & Plan (11/09/2024 10:23 AM EST): Has tried trazodone and melatonin without imprvement in symptoms, will start on ambien, call back if not improving Assessment & Plan (01/20/2023 5:24 PM EDT): Will order trazodone 50mg, lifestyle modification discussed Type 2 diabetes mellitus wit h chronic kidney disease, with long-term current use of insulin 10/16/2022 Assessment & Plan (05/22/2025 4:34 PM EDT): Followed by endocrinology, With CGM, no changes will be made Assessment & Plan (10/10/2024 12:57 PM EST): [...] sodium diet and exercise as tolerated, following machine setter and repairer Neck pain 10/16/2022 Assessment & Plan (10/16/2022 3:17 PM EST): Chronic neck pain, refers tizadinine helps mildly but make him feel drowsy, will switch to methocarbamol, he is also requesting a referal for [facility] with Dr Robbie Posadas which will be placed. Hyperlipidemia 04/11/2022 Assessment & Plan (05/22/2025 4:33 PM EDT): On atorvastatin, will order new labs for guidance of therapy, follow up in 4 months Chronic back pain 06/25/2018 Hyperlipidemia due to type 2 diabetes mellitus 0 06/25/2018 Parkinsonian tremor (CMS/HCC) 06/25/2018 Renal agenesis 06/25/2018 Gastroesophageal reflux disease 06/25/2018 Type 2 diabetes mellitus 06/25/2018 Glaucoma of both eyes 01/16/2017 Encounters Date Type Department Care Team Description 09/04/2025 Orders Only GENERIC EXTERNAL DATA DEPARTMENT Provider, Generic External Data 09/04/2025 Telephone [facility] [address] [place] [address] Derick Ernst MD CHART PREP 07/25/2025 Refill [facility] [address] [place] [address] Derick Ernst MD Neck pain from Last 3 Months Immunizations Immunization Administration Dates Next Due Hep B, adult [...] Sign Reading Time Taken Comments Blood Pressure 120/82 05/22/2025 3:45 PM EDT Pulse 82 11/08/2024 3:44 PM EST Temperature 36.8 C (98.3 F) 11/08/2024 3:44 PM EST Respiratory Rate 14 11/08/2024 3:44 PM EST [...] 09/06/2025 2:30 PM EST Telemedicine [facility] [address] [place], [place] [phone] Derick Ernst MD [address] [place], [place] [phone] Health Maintenance Due Date Last Done Comments CT Colonography 1975 FIT DNA/Cologuard 1975 FIT 1975 FOBT 1975 Sigmoidoscopy 1975 Eye Exam 1985 Family Planning (PISQ) 1990 Pneumococcal Vaccine: 50+ Years (2 of 2 - PCV) 11/12/2017 11/12/2016 SDOH Screening 03/19/2024 03/19/2023 DTaP/Tdap/Td Vaccines (2 - Td or Tdap) 10/27/2024 10/27/2014 Zoster Vaccines (1 of 2) 2025 Diabetes: Hemoglobin A1C 02/06/2025 025, 04/25/2024, 05/26/2023, Additional history exists Lipid Panel 04/25/2025 04/25/2024, 08/0 10/2022, 03/13/2022, Additional history exists Tobacco Screening 04/25/2025 04/25/2024 Influenza Vaccine (#1) 2025 08/14/2017, 2015 Depression Monitoring 08/04/2025 02/02/2025, 025 Diabetes: Foot Exam 11/08/2025 11/08/2024, 11/08/2024, 11/08/2024, Additional history exists Alcohol/Substance Use Screening 02/02/2026 02/02/2025 Disability Screening 05/22/2026 05/22/2025 Colonoscopy 09/06/2031 09/06/2021 Colorectal Cancer Screening 09/06/2031 [...] Component 7.8(11/08/2024 3:47 PM EST) No Tierney Holguin PharmD Procedures Procedure Name Priority Date/Time Associated Diagnosis Comments GLUCOSE, WHOLE BLOOD Routine 09/04/2025 1:56 PM EST POCT GLYCATED HEMOGLOBIN, TOTAL Routine 11/08/2024 3:47 PM EST Type 2 diabetes mellitus with stage 3b chronic kidney disease, with long-term current use of insulin (CMS/HCC) LIPID PANEL, STANDARD Routine 04/25/2024 12:25 PM [...] Maintenance Results * (ABNORMAL) Glucose, Whole Blood (09/04/2025 1:56 PM EST) Glucose, Whole Blood 154(H) 60 - 115 mg/dL [facility] Comment:METER #: [id number] Testing performed in the Endocrinology Department [address] , [address], [facility]. 09/04/2025 1:56 PM EST 09/04/2025 2:02 PM EST us Generic External Data Provider LAB BLOOD ORDERAB LES Final Result Performing Organization Address City/State/[facility] Co de Phone Number [facility] [address] [place] [phone] * (ABNORMAL) POCT A1C (11/08/2024 3:47 PM EST) Hemoglobin A1C 7.8(A) 4.0 - 6.0 % QC Media Lot # Comment:[id number] Lot# Expiration Date Comment:05/26/2026 Blood 11/08/2024 3:47 PM EST us Derick Govea MD POINT OF CARE TEST ENTER/EDIT ORDERABLES Final Result * (ABNORMAL) Lipid Panel, Standard (04/25/2024 12:25 PM EDT) Triglycerides 104 <150 mg/dL [facility] Comment:Desirable Triglyceri de: less than 150 mg/dLBorderline High Triglyceride 150-199 mg/dLHigh Triglyceride: 200-499 mg/dLVery High Triglyceride: greater than or equal to 5OO mg/dL Cholesterol 208(H) <200 mg/dL [facility] Comment:Desirable Cholestero l: less than 200 mg/dLBorderline High Cholesterol: 200-239 mg/dLHigh Cholesterol: greater than 239 mg/dL LDL Cholesterol Calculated 145(H) <100 mg/dL [facility] Comment:Desirable LDL: less than 100 mg/dLNear Optimal/Above Optimal LDL: 110- 129 mg/dLBorderline High LDL: 130-159 mg/dLHigh LDL: 160-189 mg/dLVery High LDL: greater than or equal to 190 mg/dL HDL Cholesterol 43 >40 mg/dL [facility] Comment:Desirable HDL: great er than 40 mg/dL Note: This HDL assay may give artificially low results in patients with liver disease. Blood Venous blood specimen / Unknown 04/25/2024 12:25 PM EDT 04/25/2024 2:16 PM EDT Derick Govea MD LAB BLOOD ORDERABL ES Final Result Performing Organization Address [facility] Co de Phone Number [facility] [address] [place] [phone] * Hepatitis C Antibody Reflex (05/26/2023 2:01 PM EDT) Hepatitis C Antibody Nonreactive Nonreactive [facility] Comment:Antibodies to HCV no t detected; does not exclude early acuteHCV infection. 05/26/2023 2:01 PM EDT 05/26/2023 5:35 PM EDT Derick Govea MD LAB BLOOD ORDERABL ES Final Result Performing Organization Address [facility] Co de Phone Number [facility] [address] [place] [phone] * HIV 1/2 ANTIGEN/ANTIBODY,FOURTH GENERATION W/RFL (01/09/2022 3:18 PM EDT) HIV-1/2 ANTIGEN AND ANTIBODIES, 4TH GENERATION W/ REFLEX NON-REACT DEBORAH NON-REACT DEBORAH [facility] Comment: HIV-1 antigen and HIV-1/HIV-2 antibodies were not detected. There is no laboratory evidence of HIV infection. PLEASE NOTE: This information has been disclosed to you from records whose confidentiality may be protected by state law. If your state requires such protection, then the state law prohibits you from making any further disclosure of the information without the specific written consent of the person to whom it pertains, or as otherwise permitted by law. A general authorization for the release of medical or other information is NOT sufficient for this purpose. For additional information please refer to http://education.Healthrageous/faq/UFN893 (This link is being provided for informational/ educational purposes only.) The performance of this assay has not been clinically validated in patients less than 2 years old. 01/09/2022 3:18 PM EDT Derick Govea MD LAB BLOOD ORDERABL ES Final Result Performing Organization Address City/State/ZIP Co pa Phone Number [facility] [address] * Hm Colonoscopy (09/06/2021 7:12 AM EST) Historical Provider HEALTH MAINTENANCE Final Result from Last 3 Months or Most Recently Relevant to Health Maintenance Insurance [id number] < [address] [place] [id number] Care Teams Kier Operator Relationship Specialty Start Date End Date Derick Ernst MD [address] [place] [phone] PCP - General Internal Medicine 03/25/20
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
--- OUTSIDE RECORDS SUMMARY | 2025-09-04 15:55 | XMS_ITS | Encounter Summary ---
Author Organization [employer] Address [address] [facility] [address] [place] [address] Care Team Providers Care Process Development Chemist Name Role Phone Derick Ernst MD Primary Care Prov ider Encounter Details Date Type Department Care Team ([facility] st Contact Info) Description 02/09/2024 Orders Only [facility] MED[facility]INE [address] [place] [address] Provider, MD Linda Social History Tobacco Use [...] t he electric, gas, oil or water [employer] threatened to shut off services in your [...] Info) Description 09/06/2025 2:30 PM EST Telemedicine [facility] [address] [place] [address] Derick Ernst MD [address] [place] [address] documented as of this encounter Procedures Procedure [...] documented as of this encounter Care Teams Process Development Chemist Relationship Specialty Start Date End Date Derick Ernst MD [address] [place] [address] PCP - General Internal Medicine 03/25/20 documented as of this encounter
--- OUTSIDE RECORDS SUMMARY | 2025-09-04 15:55 | XMS_ITS | Encounter Summary ---
Author Organization [facility], Address [address] [facility] [address] [place] [address] Phone Care Team Providers Care Senior It Engineer Name Role Phone Derick Cain Primary Care Provider + [phone] Encounter Details Date Type Department Care Team (Late st Contact Info) Description 02/27/2022 Documentation Only [facility], [address] [place] [address] Derick Cain [address] [place], [place] [id number] Social History Tobacco Use Types Packs/Day Years [...] on filedocumented in this encounter Care Teams Senior It Engineer Relationship Specialty Start Date End Date Derick Cain PCP - General Internal Medicine 02/27/22 documented as of this encounter
--- OUTSIDE RECORDS SUMMARY | 2025-09-04 15:55 | XMS_ITS | Data Portability ---
Author Organization [employer], [facility] Address [address] [place] [address] Care Team Providers Care Microfilmer Name Role Phone HIM CCA OTHER SKY EVANGELISTA Primary Care Provider Assessment Encounter Date Assessment Date Assessment LastModified by Organization Details LastModified Time 03/22/2025 03/22/2025 Impression: 50yo/m with hx of DM, HTN, referred for evaluation of approximately 5 days of symptoms. Patient states was in his usual state of health, around thursday/thursday began to have symptoms of sore throat, nasal congestion, rhinorrhea, mild headache, cough. Symptoms not improving since onset. Requesting evaluation today. For medic in home patient is awake, alert, well appearing and in no distress. Vitals show mild systolic hypertension, no tachycardia, afebrile, no hypoxia. Patient endorses history as above, but denies any associated chest pain, dyspnea, abdominal pain. Has some chronic diarrhea, otherwise no bloody stools, changes in bowel habits. Is able to eat and drink normally, breathing comfortably, ambulating at baseline. On medic exam patient is well appearing, neck soft and supple without meningismus, lungs CTAB, no LE edema. He is able to do an ambulatory challenge without any dyspnea or hypoxia. Patient denies other ROS. Of note, on ROS patient did endorse an area of rash or skin change on left hand. States was outside, felt like he might have suffered a bite , unclear if from an insect, has noticed punctate skin lesions on back of hand. No redness, swelling, tenderness associated, no streaking erythema, non pruritic. States had a similar appearing rash in the past that resolved. Plan: Patient underwent medic exam which was unremarkable, vitals are re-assuring, POC covid/flu/strep are negative. His upper respiratory symptoms are most consistent with a viral URI. Unclear if this bite or rash could be at all related to his symptoms or a coincidence. There are no signs of viral or bacterial meningitis at this time, no fevers to suggest other tick-borne or mosquito borne illness, no obvious signs of skin infection. Advised to patient that he continue to observe symptoms at home and followup with PMD in 24-48 hours for recheck, as well as seek care immediately with any acute worsening or change in symptoms. Patient is happy with this plan. Discharged from visit with mandatory timed followup and strict return instructions reviewed. Primary care, consider 48 hour followup Disposition: We discussed the diagnostic uncertainty of home visits and the risk associated with this. In this case, the patient and I felt this to be an acceptable and reasonable amount of risk given the benefit of avoiding an ED visit. We discussed the need to seek care urgently/emergen tly in the setting of any new or worsening serious symptoms [email or web address] Not available 03/22/2025 14:40:09 Plan of Treatment Reminders Order Date Submit Date Provider Last Modified By Organization Details Last Modified Time Details Appointments None recorded. Lab rapid SARS CoV 2 Ag, QL [place], respiratory specimen [address] [place] [address], [id number] 5 16:06:50 rapid flu (A+B) [address] [place] [address], [id number] 5 16:07:09 rapid strep group A, throat [address] [place] [address], [id number] 5 16:07:24 Referral None recorded. Procedures None recorded. Surgeries None recorded. Imaging None recorded. Medication Orders None recorded. Patient TargetsNo targets recorded. Patient InstructionsNo instructions recorded. Reason for Referral None Reported. Results Created Date Observation Date Name Description Value Unit Range Abnormal Flag Note LastModifiedBy Organization Detail LastModifiedTime Result Notes None recorded. Medical Equipment None Reported. Allergies Allergen ID Allergen Name Allergen Category Reaction Reaction Severity Criticality Documentation Date Start Date Code Code System Note Provider Name and Address Organization Details Recorded Time 70508 oxycodone medicatio n Not available Not available Not available 03/22/2025 5944 RxNorm Not Available [facility] - production 5 13:07:52 Medications Name Sig Start Date Stop Date Status Note LastModified by Organization Details LastModified Time pioglitazone 15 mg tablet TAKE ONE TABLET DAILY active Not Available Not Available No t Available atorvastatin 40 mg tablet TAKE ONE TABLET EVERY NIGHT AT BEDTIME active Not Available Not Available N ot Available trazodone 50 mg tablet TAKE ONE TABLET EVERY NIGHT AT BEDTIME active Not Available Not Available N ot Available enalapril maleate 5 mg tablet TAKE ONE TABLET BY MOUTH AT BEDTIME active Not Available Not Available No t Available cetirizine 10 mg tablet TAKE ONE TABLET EVERY DAY active Not Available Not Available No t Available tizanidine 4 mg tablet TAKE ONE TABLET EVERY 6 HOURS NEEDED active Not Available Not Available No t Available hydroxyzine pamoate 50 mg capsule TAKE ONE CAPSULE THREE TIMES DAILY active Not Available Not Available No t Available aspirin 81 mg tablet,delay ed release TAKE ONE TABLET BY MOUTH BEDTIME active Not Available Not Available No t Available methocarbamo l 750 mg tablet TAKE ONE TABLET FOUR TIMES DAILY active Not Available Not Available Not Available lidocaine 5 % topical patch APPLY 1 PATCH TO SKIN. LEAVE ON FOR 12 HOURS, THEN OFF FOR 12 HOURS DIRECTED. active Not Available Not Available No t Available zolpidem 10 mg tablet TAKE ONE TABLET AT BEDTIME NEEDED FOR SLEEP active Not Available Not Available No t Available pioglitazone 30 mg tablet TAKE ONE TABLET EVERY MORNING active Not Available Not Available No t Available quetiapine 50 mg tablet TAKE ONE TABLET EVERY NIGHT AT BEDTIME active Not Available Not Available N ot Available FreeStyle Lite Strips TEST BLOOD SUGAR THREE TIMES DAILY active Not Available Not Available Not Available Easy Touch Twist Lancets 33 gauge TEST BLOOD SUGAR FOUR TIMES DAILY active Not Available Not Available Not Available FreeStyle Naif 2 Sensor kit USE DIRECTED AND CHANGE EVERY 14 DAYS active Not Available Not Available No t Available Mounjaro 7.5 mg/0.5 mL subcutaneous pen injector INJECT ONE PEN (=7.5MG) SUBCUTANEOU SLY ONCE A WEEK DIRECTED active Not Available Not Available No t Available Mounjaro 10 mg/0.5 mL subcutaneous pen injector INJECT 10 MG SUBCUTANEOU SLY EVERY WEEK active Not Available Not Available No t Available FreeStyle Naif 3 Beaver USE DIRECTED active Not Available Not Available No t Available FreeStyle Naif 3 Plus Sensor device USE DIRECTED AND CHANGE EVERY 15 DAYS active Not Available Not Available No t Available Vitals Date Recorded Body temperature Heart rate Body weight Oxygen saturation Oxygen saturation in Arterial blood by Pulse oximetry Respiratory rate Body height Systolic And Diastolic Provider Name and Address Organization Details Last Updated DateTime 98.5 [degF] 83 /min 852123. 92 g 97 % 97 % 18 /min 187.96 cm 145/78 mm[Hg] Not Available [facility] - production 14:20:04 Social History None recorded. Functional Status None recorded. Mental Status None recorded. Family History Nothing Reported. Medical History No medical history recorded. Past Encounters Encounter ID Performer Location Encounter Start Date Encounter Closed Date Diagnosis/Indication Diagnosis SNOMED-CT Code Diagnosis ICD10 Code Diagnosis IMO Codes Diagnosis Note [id number] Trav Keen MD [facility] [address] [place] [phone] 03/22/2025 14:19:58 03/22/2025 16:11:31 Viral upper respiratory tract infection 397098321 J06.9 [id number] Health Concerns Section Related Observation LastModified by Organization Detai ls LastModified Time None Recorded Concern Status LastModified by Organization Details LastModified Time None Recorded Advance Directives Directive None Recorded Payers Insurance Date Sequence Insurance Name Policy Number Policy Peters Covered Member ID Peters Member ID Guarantor Name 03/22/2025 1 [facility] - DOS ON OR AFTER 2023 - DUAL ELIGIBLE - ASSISTED OPTIONS AND ONE CARE (MEDICARE REPLACEMENT/ADV ANTAGE - HMO) Glen Savage [id number] Glen Savage Notes Date Note Type Note Provider Name and Address Organization Details Recorded Time 03/22/2025 text/html ROS as noted in the HPI CRC Nurse Triage Notes (Adia Escalera): Reason For Request: Pt has been sick since thursday. Coughing, phglem, runny nose, sore throat and headache Patient Reports: Cough, fever greater than 2 days ; Sputum increase ; Cough Denies: Increased work of breathing/labored with or without fever Unable to speak in full sentences without distress Discoloration of skin -cyanosis Needs to sleep sitting up, can t catch breath Shortness of breath in setting of confusion Lower extremity swelling History of asthma, increased use of inhaler COPD COVID Exposure Shortness of breath with exertion Pain with inspiration Chief Complaints: Common Cold PMH: Diabetes Mellitus Type 2, Hypertension PMH Reviewed at 03/22/2025: Allergies Reviewed at 03/22/2025: Comments: 50 y.o male calling for spouse with cold symptoms since thursday. He has a cough, yellow sputum. Sinus headaches, sore throat , hoarse voice. He has a fever , unsure of temp. He does have nausea , no vomiting. He had sob that has resolved, talking in full sentences. He did have child asthma but none at this time. 'He has been taking cough medicine and throat lozenges. He does not feel that it has helped. He has DM2 , on Mounjaro. Blood sugar 181 I provided information on the mobile health provider response time and advised the patient and/or caregiver to monitor reported signs and symptoms. I discussed the warning signs of when to seek emergency care. Systems Test Analyst Organization Information for [facility] Business Legal Name: [employer]. Address: [address] [place] [address], Community Artist: Joshua Toro MD [place] No.: [id number] Systems Test Analyst POC Test Results from [facility] Rapid COVID antigen (14:18:00) COVID: - Rapid influenza antigen (14:18:01) Flu: - Rapid strep test (14:18:04) Strep: - .................. .................. .................. .................. .................. .................. .................. ............... Systems Test Analyst Note From [facility]: Sent to a call for a pt complaining of URI symptoms. SC8 arrives on scene, pt is alert and oriented, airway is patent. Pt complains of chronic sob w/exertion (in spring due to allergies), and intermittent chronic diarrhea. Pt complains of multiple bug bites on body starting . Pt states he felt a biting sensation on , and now sites are itching. Some have dried and healed, but pt noticed another on left hand today. Pt states he had a bite on right ankle approx 2 yrs ago that was slow to heal and required wound care. Pt is concerned bites might be connected to other symptoms. Pt also complains of the following symptoms since Thursday. byers, runny nose w/yellow mucus, sore throat, productive cough with brown phlegm, now yellow, and nausea. Pt denies dizziness, cp, vomiting, abd pain, fever, or loc. Pt has been eating/drinking normally. BP:145/78, P:83, RR:18, SpO2:97% RA, T:98.5; No change in SpO2 while ambulating. Head: unremarkable; Lung sounds: clear bilaterally; Abdomen: soft, non-tender, no distention; Back: unremarkable; Extremities: no peripheral edema; small rash/bite on left hand; Skin: pink, warm, dry; Rapid covid/flu test: neg; Rapid strep test: neg; [facility] consulted and pt advised to continue monitoring closely for febrile illness/worsening symptoms. Pt advised to continue symptomatic treatment and follow up with PCP. Red flags discussed. Pt has no further questions. [facility] Lab Orders: rapid SARS CoV 2 Ag, QL IA, respiratory specimen: Performed rapid flu (A+B): Performed rapid strep group A, throat: Performed .................. .................. .................. .................. .................. .................. .................. ............... [facility] Consulted: Trav Keen .................. .................. .................. .................. .................. .................. .................. ............... Disposition: Fulfilled Trav Keen MD [address] [facility],[address], [place], [address], ANDIE - W[facility] 03/22/2025 15:23:16
--- OUTSIDE RECORDS SUMMARY | 2025-09-04 15:55 | XMS_ITS | Clinical Summary ---
Author Organization [facility], Address [address] [place] [address] [place] [address] Phone Care Team Providers Care Ed Teacher Name Role Phone Derick Cain Primary Care [...] Health Maintenance Due Date Last Done Comments Hepatitis B Vaccine (1 of 3 - 19+ 3-dose series) 1994 Pneumococcal Vaccine: 50+ Ye ars (2 of 2 - PCV) 11/12/2017 11/12/2016 Diabetes: Ophthalmology Exam 04/11/2022 Diabetes: Pedal Pulse Checked 04/11/2022 Diabetes: Sensory Foot Exam 04/11/2022 Diabetes: Visual Foot Exam 04/11/2022 Colorectal Cancer Screening: Annual FOBT 01/19/2024 Colorectal Cancer Screening: Colonoscopy 01/19/2024 Colorectal Cancer Screening: Sigmoidoscopy 01/19/2024 Diabetes: Hemoglobin A1C 02/06/2025 11/08/2024, 12/0 11/2021 Influenza Vaccine (#1) 2025 08/14/2017, 2015 Pneumococcal Vaccine: Peds ( 0 to 5 Years) and At-Risk Patients (6 to 49 Years) Discontinued 11/12/2016 Insurance [employer] Dual SNP ([id number]) Care Teams Ed Teacher Relationship Specialty Start Date End Date Derick Cain PCP - General Internal Medicine 02/27/22
--- OUTSIDE RECORDS SUMMARY | 2025-09-04 15:55 | XMS_ITS | Clinical Summary ---
Author Organization [address] [place] [address] Address [address] [place] [address] Phone Care Team Providers Care Stucco Laborer Name Role Phone Derick Ernst Primary Care Provide r Allergies Active Allergy Reactions Criticality Noted Date Comments Oxycodone 03/15/2025 Medications lancets (Easy Touch Twist Lancets) 33 gauge misc 1 Lancet by extracorporeal route 4 (four) times a day. Active hydrOXYzine pamoate (VISTARIL) 50 mg capsule Take 1 capsule (50 mg total) by mouth 3 times daily. 2 Active ibuprofen (ADVIL,MOTRIN) 800 mg tablet Take 1 tablet (800 mg total) by mouth. Active insulin aspart (NovoLOG Flexpen U-100 Insulin) 100 unit/mL (3 mL) injection pen INJECT EIGHT UNITS SUBCUTANEOUSLY THREE TIMES DAILY Active insulin glargine (Lantus Solostar U-100 Insulin) 100 unit/mL (3 mL) injection pen Inject 40 Units under the skin. Active lidocaine (LIDODERM) 5 % patch APPLY 1 PATCH TO SKIN. LEAVE ON FOR 12 HOURS, THEN OFF FOR 12 HOURS DIRECTED. 5 Active loratadine (CLARITIN) 10 mg tablet Take 1 tablet (10 mg total) by mouth. 2 Active methocarbamoL (ROBAXIN) 750 mg tablet TAKE ONE TABLET FOUR TIMES DAILY 7 Active miconazole nitrate 2 % aerosol powder Apply 133 g topically. 6 Active mirtazapine (REMERON) 15 mg tablet Take 1 tablet (15 mg total) by mouth. 5 Active omeprazole (PriLOSEC) [address] capsule TAKE ONE CAPSULE EVERY MORNING BEFORE BREAKFAST 2 Active pioglitazone (ACTOS) 15 mg tablet Take 1 tablet (15 mg total) by mouth 1 (one) time each day. Active polyethylene glycol (PEG) 17 gram/dose oral powder Take 17 g by mouth. 6 Active QUEtiapine (SEROquel) 50 mg tablet TAKE ONE TABLET EVERY NIGHT AT BEDTIME Active Mounjaro 10 mg/0.5 mL injection INJECT 10 MG SUBCUTANEOUSLY EVERY WEEK Active tiZANidine (ZANAFLEX) 4 mg tablet Take 1 tablet (4 mg total) by mouth every 6 (six) hours if needed. 2 Active zolpidem (AMBIEN) 10 mg tablet TAKE ONE TABLET AT BEDTIME NEEDED FOR SLEEP Active traZODone (DESYREL) 50 mg tablet TAKE ONE TABLET EVERY NIGHT AT BEDTIME Active Encounters Date Type Department Care Team Description 07/18/2025 1:00 PM EDT Office Visit Orthopedic Surgery - [address] [phone] Jamari Cadet, DPM Brachymetatarsia of fourth metatarsal bone (Primary Dx); Dermatophytosis of nail; Type II diabetes mellitus with peripheral circulatory disorder ([facility] V24, [facility] V28); Acquired hallux valgus of left foot; Acquired hallux valgus of right foot; Metatarsalgia of both feet; Corns and callosities; Pain in toe of right foot; Pain in toe of left foot; Acquired hammer toe of right foot; Diabetic mononeuropathy simplex ([facility] V24, [facility] V28); Hammer toe of left foot from Last 3 Months Medical History Medical History Date Comments Esophageal reflux DX:Esophageal reflux Diabetes mellitus type 2, co ntrolled, with complications ([facility] V24, [facility] V28) DX:Diabetes mellitus type 2, controlled, with complications ([facility]) Essential hypertension DX:Essent ial hypertension Hyperlipidemia DX:Hyperlipidemi a Social History Tobacco Use Types Packs/Day Years Used Date Smoking Tobacco: Never Smokeless Tobacco: Never Alcohol Use Standard Drinks/Week Comments Never 0 (1 standard drink = 0.6 oz pur e alcohol) Sex and Gender Information Value Date Recorded Sex Assigned at Male 06/08/2025 10:50 AM EDT Legal Sex Male 11:25 PM EST Gender Identity Male 06/08/2025 10:50 AM EDT Sexual Orientation Straight 06/08/2025 10 :50 AM EDT Obstetrics History Last Filed Vital Signs Vital [...] Care Team (Late st Contact Info) Description 10/24/2025 1:15 PM EST Office Visit Orthopedic Surgery - [place] [address] [address] Jamari Cadet, DPM [address] [address] Health Maintenance Due Date Last Done Comments Colorectal Cancer Screening: Colonoscopy 1975 Diabetes: Annual GFR (Glomerular Filtration Rate) 1975 Diabetes: Annual Foot Exam 1985 Diabetes: Annual Retina Eye Exam 1985 Hepatitis B Vaccines (1 of 3 - 19+ 3-dose series) 1994 Zoster Vaccines (1 of 2) 1994 Pneumococcal Vaccine: 50+ Years (2 of 2 - PCV) 11/12/2017 11/12/2016 COVID-19 Vaccine (3 - Pfizer risk series) 04/19/2021 03/22/2021, 03/01/2021 Hepatitis C Screening 09/28/2022 Medicare Annual Wellness Visit 09/28/2022 Social Influencers of Health Screening 09/28/2022 Diabetes: Annual Urine Albumin-Creatinine Ratio (uACR) 10/11/2022 Depression Screening 10/26/2024 DTaP,Tdap,and Td Vaccines (2 - Td or Tdap) 10/27/2024 10/27/2014 RSV Immunization Adult Patients (1 - Risk 50-74 years 1-dose series) 2025 Hypertension/CHF/CAD Annual BMP Blood Test 03/16/2025 Diabetes: [...] to Subscriber:Self Name:Glen Savage Payer ID:[id number] Group ID:[id number] Type:Not on file Address: [place] [address] [address] [place] [address] Care Teams Stucco Laborer Relationship Specialty Start Date End Date Derick Ernst [address] [place], [place] PCP - General Internal Medicine 01/04/25
--- OUTSIDE RECORDS SUMMARY | 2025-09-04 15:56 | XMS_ITS | Encounter Summary ---
Author Organization [employer] [facility] Address [address] [place] [address] [address] [place] [address] Care Team Providers Care Hematology Supervisor Name Role Phone Derick Ernst MD Primary Care Prov ider Encounter Details Date Type Department Care Team (Latest Contact Info) Description 11/11/2018 Abstract [facility] CONVERSIONS Dental, Provider, DDS Social History Tobacco [...] Info) Description 09/06/2025 2:30 PM EST Telemedicine [facility] [address] [place] [address] Derick Ernst MD [address] [place] [address] documented as of this encounter Visit Diagnoses Not on filedocumented in this encounter Care Teams Hematology Supervisor Relationship Specialty Start Date End Date Derick Ernst MD [address] [place] [address] PCP - General Internal Medicine 03/25/20 documented as of this encounter
== END 2025-09-04 14:15 | disposition home or self-care (01) ==
LOC: HO.ENCR 13:44
PROVIDERS: PCP Internal Medicine; Visit Provider Physician Assistant
DX: E11.65 Type 2 diabetes mellitus with hyperglycemia (principal); Z79.4 Long term (current) use of insulin; I10 Essential (primary) hypertension; Z13.9 Encounter for screening, unspecified

== ENCOUNTER → 2025-09-04 13:43 | Outpatient (BNVA) | payer OTHER, SELFPAY | PROVIDERS: PCP Internal Medicine; Visit Provider Physician Assistant | DX: E11.65 Type 2 diabetes mellitus with hyperglycemia (principal); I10 Essential (primary) hypertension; Z79.4 Long term (current) use of insulin | CPT/HCPCS: 82947; 83036; 99212 ==